=== PATIENT | male | born 1945 | race Caucasian/White ===

== ENCOUNTER → 2023-04-01 07:37 | Outpatient (REF) | payer MEDICARE, SELFPAY | LOC: DHVS 07:37 | PROVIDERS: ATTENDING PHYSICIAN Surgery Vascular Surgery | DX: I71.40 Abdominal aortic aneurysm, without rupture, unspecified (principal) | CPT/HCPCS: 76770 ==

== ENCOUNTER → 2023-04-05 08:02 | Outpatient (REF) | payer MEDICARE, SELFPAY ==
[2023-04-05 09:46] LABS: Blood Urea Nitrogen 12 mg/dl (9-20); Calcium 9.6 mg/dl (8.4-10.2); Carbon Dioxide 29 mmol/L (22-30); Chloride 103 mmol/L (98-107); Glucose 101 mg/dl (70-99); Sodium 138 mmol/L (135-145); eGFR > 60.00
== END ==
LOC: REG 08:02
PROVIDERS: ATTENDING PHYSICIAN Surgery Vascular Surgery; FAMILY PHYSICIAN Family Medicine
DX: I71.40 Abdominal aortic aneurysm, without rupture, unspecified (principal)
CPT/HCPCS: 36415; 80048

== ENCOUNTER → 2023-04-07 08:52 | Outpatient (REF) | payer MEDICARE, SELFPAY | LOC: HWRAD 08:52 | PROVIDERS: ATTENDING PHYSICIAN Surgery Vascular Surgery; FAMILY PHYSICIAN Family Medicine | DX: I71.40 Abdominal aortic aneurysm, without rupture, unspecified (principal) | CPT/HCPCS: 74174; Q9967 ==

== ENCOUNTER → 2023-04-13 13:22 | Outpatient (REF) | payer MEDICARE, SELFPAY | LOC: HWRAD 13:22 | PROVIDERS: ATTENDING PHYSICIAN Internal Medicine Critical Care Medicine; FAMILY PHYSICIAN Family Medicine | DX: R93.89 Abnormal findings on diagnostic imaging of other specified body structures (principal); R06.02 Shortness of breath | CPT/HCPCS: 71250 ==

== ENCOUNTER → 2023-04-14 06:54 | Outpatient (REF) | payer MEDICARE, SELFPAY ==
[2023-04-14 07:33] LABS: % Basophils 0.9 % (0-2); % Eosinophils 5.3 % (0-6); % Immature Granulocytes 0.4 % (0-0.5); % Lymphocytes 33.6 % (20.5-51.1); % Monocytes 7.1 % (1.7-9.3); % Neutrophils 52.7 % (42.2-75.2); Absolute Basophils 0.1 10^3/uL (0-0.2); Absolute Eosinophils 0.6 10^3/uL (0-0.7); Absolute Lymphocytes 3.6 10^3/uL (1.2-3.4); Absolute Monocytes 0.8 10^3/uL (0.1-0.6); Absolute Neutrophils 5.7 10^3/uL (1.4-6.5); Hemoglobin 16.6 g/dL (13.0-18.0); Mean Corp Hgb Conc. 34.6 g/dL (33.0-37.0); Mean Corpuscular Volume 86.8 fL (80.0-94.0); Nucleated Red Blood Cells % 0 % (-); Platelet Count 287 10^3/uL (130-400); Red Blood Cell Count 5.53 10^6/uL (4.70-6.10); Red Cell Dist. Width 13.5 % (11.5-14.5); White Blood Cell Count 10.7 10^3/uL (4.8-10.8)
[2023-04-14 07:59] LABS: ALT (SGPT) 32 U/L (0-50); AST (SGOT) 38 U/L (17-59); Alkaline Phosphatase 84 U/L (38-126); Blood Urea Nitrogen 14 mg/dl (9-20); Calcium 9.8 mg/dl (8.4-10.2); Carbon Dioxide 29 mmol/L (22-30); Chloride 102 mmol/L (98-107); Glucose 91 mg/dl (70-99); HDL Cholesterol 49 mg/dl; LDL Cholesterol, Calculated 103 mg/dl; Potassium 4.2 mmol/L (3.5-5.1); Sodium 141 mmol/L (135-145); Total Bilirubin 1.3 mg/dl (0.2-1.3); Total Cholesterol 195 mg/dl (50-199); Total Protein 6.6 g/dl (6.3-8.2); Triglyceride 218 mg/dl (10-149); Very Low Density Lipoprotein 43 mg/dl (0-30); eGFR > 60.00
[2023-04-14 08:26] LABS: TSH Reflex To Free T4 5.73 uIU/ml (0.47-4.68)
[2023-04-14 11:35] LABS: Free T4 0.86 ng/dl (0.78-2.19)
== END ==
LOC: REG 06:54
PROVIDERS: ATTENDING PHYSICIAN Family Medicine
DX: I71.40 Abdominal aortic aneurysm, without rupture, unspecified (principal); Z13.220 Encounter for screening for lipoid disorders; Z13.228 Encounter for screening for other metabolic disorders; Z13.29 Encounter for screening for other suspected endocrine disorder; Z13.0 Encounter for screening for diseases of the blood and blood-forming organs and certain disorders involving the immune mechanism; E78.00 Pure hypercholesterolemia, unspecified
CPT/HCPCS: 36415; 80053; 80061; 84439; 84443; 85025

== ENCOUNTER → 2023-04-18 13:47 | Outpatient (REF) | payer MEDICARE, SELFPAY | LOC: DHCBS HW 13:47 | PROVIDERS: ATTENDING PHYSICIAN Internal Medicine Interventional Cardiology; FAMILY PHYSICIAN Family Medicine | DX: R06.02 Shortness of breath (principal); I71.40 Abdominal aortic aneurysm, without rupture, unspecified | CPT/HCPCS: 93306 ==

== ENCOUNTER → 2023-04-21 10:43 | Outpatient (REF) | payer MEDICARE, SELFPAY | LOC: DHCBC/DCA 10:43 | PROVIDERS: ATTENDING PHYSICIAN Internal Medicine Interventional Cardiology; FAMILY PHYSICIAN Family Medicine | DX: R06.02 Shortness of breath (principal); I71.40 Abdominal aortic aneurysm, without rupture, unspecified | CPT/HCPCS: 78452; 93017; A9500; J2785 ==

== ENCOUNTER 2023-06-16 06:33 | Inpatient (IN) | payer MEDICARE, SELFPAY ==
[2023-06-13 09:04] VITALS: BMI 27.5
[2023-06-13 09:29] LABS: % Basophils 1.1 % (0-2); % Eosinophils 3.2 % (0-6); % Immature Granulocytes 1.1 % (0-0.5); % Lymphocytes 29.2 % (20.5-51.1); % Monocytes 7.7 % (1.7-9.3); % Neutrophils 57.7 % (42.2-75.2); Absolute Basophils 0.1 10^3/uL (0-0.2); Absolute Eosinophils 0.3 10^3/uL (0-0.7); Absolute Immature Granulocytes 0.1 10^3/uL (0-0.05); Absolute Lymphocytes 2.6 10^3/uL (1.2-3.4); Absolute Monocytes 0.7 10^3/uL (0.1-0.6); Absolute Neutrophils 5.2 10^3/uL (1.4-6.5); Hematocrit 43.4 % (39.0-52.0); Hemoglobin 14.9 g/dL (13.0-18.0); Mean Corp Hgb Conc. 34.3 g/dL (33.0-37.0); Mean Corpuscular Hgb 30.8 pg (27.0-31.0); Mean Corpuscular Volume 89.7 fL (80.0-94.0); Mean Platelet Volume 10.4 fL (7.4-10.4); Nucleated Red Blood Cells % 0 % (-); Platelet Count 199 10^3/uL (130-400); Red Blood Cell Count 4.84 10^6/uL (4.70-6.10); Red Cell Dist. Width 14.1 % (11.5-14.5)
[2023-06-13 09:38] LABS: INR 0.99; PT 12.9 Sec (11.4-14.6)
[2023-06-13 09:39] LABS: APTT 25.8 Sec (23.4-35.0)
[2023-06-13 10:02] LABS: Blood Urea Nitrogen 14 mg/dl (9-20); Calcium 9.7 mg/dl (8.4-10.2); Carbon Dioxide 28 mmol/L (22-30); Chloride 107 mmol/L (98-107); Estimated Creatinine Clearance 83 ml/min; Glucose 113 mg/dl (70-99); Sodium 140 mmol/L (135-145); eGFR > 60.00
[2023-06-13 10:18] LABS: Potassium 3.8 mmol/L (3.5-5.1)
[2023-06-16] VITALS (16 sets, daily range): BP systolic 131–148; BP diastolic 58–72; BMI 27.5
--- NOTE | 2023-06-16 07:01 | W.SUR.PREOP ---
Pre-Operative Surgical Note
-
I have examined this patient prior to the performance of the scheduled procedure.
The patient's condition is unchanged from the time of the current History and
Physical and the patient is able to undergo the scheduled procedure.
[2023-06-16] MEDS: BACTROBAN NASAL 1 GRAM NASAL (07:06)
[2023-06-16] MEDS: PERIDEX 0.12% ORAL RINSE 15 ML PO (07:07)
[2023-06-16] MEDS: NSS 500 IV (07:07)
[2023-06-16] MEDS: VENTOLIN NEBULES 2.5 MG INH (07:19)
[2023-06-16 10:14] LABS: ACT-LR - POC 227 Seconds (116-155)
[2023-06-16 11:07] LABS: ACT-LR - POC 240 Seconds (116-155)
--- NOTE | 2023-06-16 11:37 | W.SUR.POST ---
Surgical Immediate Post Op
Note
Pre Op Diagnosis: AAA
Post Op Diagnosis: AAA
Procedure Performed: FEVAR + Right femoral endarterectomy with bovine patch angioplasty
Primary Surgeon: Omar Hale MD
Primary Special Educator: KARLOS Rosenberg
Anesthesia:GETA
Estimated Blood Loss: 150ml
Fluids: See anesthesia flowsheet
Drains/Shunts: N/A
Specimens/Cultures: Right common femoral plaque
Doppler/Duplex/Angio (Y/N): Y
Complications: None
Operative Findings: Post operatively +2 palpable DP pulse
[2023-06-16 12:25] LABS: Hematocrit 37.7 % (39.0-52.0); Mean Corp Hgb Conc. 34.5 g/dL (33.0-37.0); Mean Platelet Volume 10.3 fL (7.4-10.4); Platelet Count 158 10^3/uL (130-400); Red Blood Cell Count 4.19 10^6/uL (4.70-6.10); Red Cell Dist. Width 14.1 % (11.5-14.5); White Blood Cell Count 8.4 10^3/uL (4.8-10.8)
[2023-06-16] MEDS: DILAUDID 0.25 MG IV (12:27)
[2023-06-16 12:35] LABS: INR 1.06; PT 13.9 Sec (11.4-14.6)
[2023-06-16 12:36] LABS: APTT 29.3 Sec (23.4-35.0)
[2023-06-16 12:45] LABS: Blood Urea Nitrogen 14 mg/dl (9-20); Calcium 8.3 mg/dl (8.4-10.2); Carbon Dioxide 24 mmol/L (22-30); Chloride 115 mmol/L (98-107); Estimated Creatinine Clearance 94 ml/min; Glucose 122 mg/dl (70-99); Potassium 4.2 mmol/L (3.5-5.1); Sodium 140 mmol/L (135-145); eGFR > 60.00
[2023-06-16] MEDS: NSS 1000 IV ×2 (12:45→20:55)
[2023-06-16 13:33] LABS: Magnesium 1.8 mg/dl (1.6-2.3)
--- NOTE | 2023-06-16 14:18 | CON.INTV ---
Consultation
Consultation Request
Date/Time Consultation Requested: 06/16/2023 - 1307
Date/Time Consultation Performed: 06/16/2023 - 1402
Requesting Provider: KARLOS Cervantes
Performing Provider: Dr. Pope
Reason for Consultation: S/p EVAR + femoral endarterectomy
Medical History
-
Chief Complaint: Elective FEVAR
History of Present Illness:
78-year-old male former tobacco smoker (quit in 1994) with a past medical history of COPD, ED, hypercholesterolemia, GERD, colonic polyps, hiatal hernia, personal history of COVID-19, and AAA without rupture who presents with elective surgical
repair of his known AAA. Patient known to vascular surgery with last appointment on 05/06/[address] Hale. Patient had a duplex ultrasound from March 2023 showing progression of his aortic aneurysm that currently measures 5.9 x [address]
scan his aneurysm sac measures 5.5 cm surgical repair with a fenestrated endovascular stent graft was discussed as well as possible right femoral endarterectomy. Patient agreed to procedure and today he underwent open surgical exposure of his right
femoral artery with endovascular pair using fenestrated endovascular stent graft, as well as extensive right iliofemoral endarterectomy and bilateral renal artery stent insertion. Patient tolerated procedure without any immediate complications. He
was transferred to ICU postoperatively and critical care services now consulted for additional management/recommendations.
When I saw the patient he was in bed, on room air with SpO2 97%. He is breathing comfortably. Tovar catheter in place. He denies shortness of breath, chest pain, abdominal pain, fevers or chills.
Of note, patient follows with me in [facility] office. Last office visit on 04/11/2023. At that time patient had shortness of breath likely related to multiple bouts of COVID-19. He obtain PFTs in April 2023 which showed moderate COPD. Stiolto Respimat
was started at that time. He also has a RUL spiculated nodule which is stable compared to November 2020.
PMHx: Moderate COPD, anxiety, history of Paget's disease, ED, hypercholesterolemia, GERD, rotator cuff tear, colonic polyps, diverticulosis, hiatal hernia, lumbar spinal stenosis, AAA, history of skin cancer, personal history of COVID-19, postnasal
drip, former tobacco use disorder
PSHx: Cervical spinal surgery (August 2017), laparoscopic appendectomy with partial cecectomy, right�TKA, L3-L5 fusion, bilateral hip replacement, bilateral shoulder arthroscopy
Past Medical History
Past Medical History: Other (Above as per HPI)
Past Surgical History: Other (Above as per HPI)
Social History
Tobacco: Former Smoker (Quit in 1994)
Alcohol: None
Drug: None
Family History
Family History: CAD (Mother) and Cancer (Father: Bone cancer)
Allergies / Home Medications
Allergies
Allergy/AdvReac Type Severity Reaction Status Date / Time
sulfamethoxazole Allergy racing Verified 06/06/23 12:08
[From Bactrim] heart rate
trimethoprim [From Bactrim] Allergy racing Verified 06/06/23 12:08
heart rate
Home Medications
�Medication �Instructions �Recorded �Confirmed �Last Taken �Type
atorvastatin 20 mg tablet 20 mg PO HS 04/04/10 06/16/23 06/15/23 20:00 History
alprazolam 0.5 mg tablet 0.5 mg PO PRN PRN anxiety 09/13/17 06/16/23 04/17/19 21:00 History
celecoxib 200 mg capsule 200 mg PO Q12H ##0 04/19/19 06/16/23 06/12/23 20:00 Rx
albuterol sulfate 90 mcg/actuation 1 inh inhalation Q4HPRN PRN SOB 06/06/23 06/16/23 06/16/23 06:00 History
aerosol inhaler
atenolol 25 mg tablet 25 mg PO DAILY 06/06/23 06/16/23 06/15/23 19:00 History
omeprazole 20 mg tablet,delayed 20 mg PO DAILY 06/06/23 06/16/23 06/15/23 20:00 History
release
tiotropium 2.5 mcg-olodaterol 2.5 2 puff inhalation DAILY 06/06/23 06/06/23 Unknown History
mcg/actuation mist for inhalation
(Stiolto Respimat)
zolpidem 5 mg tablet 5 mg PO HS PRN Insomnia 06/06/23 06/16/23 Unknown History
Review of Systems
-
History Source: Patient
All other systems: Negative unless noted
Vitals / Labs / Diagnostic Testing
Vital Signs
Temp Pulse Resp BP Pulse Ox
97.8 F 56 13 148/60 99
06/16/23 15:24 06/16/23 15:15 06/16/23 15:15 06/16/23 15:01 06/16/23 15:15
Lab Data
06/16/23 12:15
06/16/23 12:15
Laboratory Results
06/16/23
12:15
PT 13.9
INR 1.06
APTT 29.3
Microbiology
06/13/23 09:17 Nose MRSA Screen - Final
No Methicillin Resistant Staphylococcus aureus isolated.
Diagnostic Testing:
Physical Exam
-
HEENT: Normocephalic, Anicteric and Moist Mucous Membranes
Cardiovascular: S1/S2 and Peripheral Edema (negative)
Respiratory: Wheeze (negative), Rales (negative), Rhonchi (negative) and Non-Labored Respirations
GI: Soft, Non Distended and Non Tender
Neurology: Awake and Alert
Skin: Warm and Dry
General: Comfortable and Chills (negative)
Assessment
-
Assessment: 78-year-old male former tobacco smoker (quit in 1994) with a past medical history of COPD, ED, hypercholesterolemia, GERD, colonic polyps, hiatal hernia, personal history of COVID-19, and AAA without rupture who presents with elective
surgical repair of his known AAA. Patient known to vascular surgery with last appointment on 05/06/[address]. Patient had a duplex ultrasound from March 2023 showing progression of his aortic aneurysm that currently measures 5.9 x 5.[address] scan his aneurysm sac measures 5.5 cm surgical repair with a fenestrated endovascular stent graft was discussed as well as possible right femoral endarterectomy. Patient agreed to procedure and today he underwent open surgical exposure
of his right femoral artery with endovascular pair using fenestrated endovascular stent graft, as well as extensive right iliofemoral endarterectomy and bilateral renal artery stent insertion. Patient tolerated procedure without any immediate
complications. He was transferred to ICU postoperatively and critical care services now consulted for additional management/recommendations.
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
COVID-19, postnasal drip, former tobacco use disorder
Impression:
#Abdominal aortic aneurysm s/p fenestrated endovascular stent graft repair + right iliofemoral endarterectomy with bovine patch angioplasty (POD #0)
#Acute respiratory failure with hypoxia on supplemental oxygen
#Former tobacco smoker (quit 1994)
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
#GERD
#Hiatal hernia
#Personal Hx of COVID-19
Plan:
Postoperative surgical intensive care unit monitoring
Continue supplemental oxygen to maintain SpO2 >88%
Incentive spirometry
Aspiration precautions
MAP>65
Takes Stiolto --> will start Striverdi and Spiriva while inpatient, andn oncen back home he should resume Stiolto
Neuro and vascular checks per protocol
Vascular surgery following-correspondence and operative notes reviewed
Replete electrolytes with K>4, Mg>2
Maintain euglycemia with goal BG 140-180
DVT prophylaxis
Early nutrition
Early mobilization
Critical care statement: A total of 44 minutes of critical care time was provided for this patient today. This includes management of unstable vital signs, evaluation of the patient at bedside, reviewing the patient's pertinent medical records
including radiographs, microbiology, laboratory evaluations, and discussion with primary team, consultants, pharmacy, nutrition, physical therapy, case management, charge nurse, critical care nursing, and respiratory therapy.
Data:
CXR 06-16-2023:
Mild to moderate cardiomegaly, accentuated by nonstandard projection and supine positioning.
No evidence to suggest vascular congestion or congestive heart failure. No focal interstitial or airspace opacity to indicate pneumonia. The lungs are clear.
No radiographically demonstrable pneumothorax, limited by supine positioning.
--- NOTE | 2023-06-16 15:33 | PTCARENOTE ---
Updated assessment, vital signs, neurovascular checks, input, output trends ongoing and as documented. Updated admission assessment, data based and orientation to ICU completed. Follow up plan of cares, teaching and supportive cares ongoing. Follow
up labs, chest xray, and ecg completed as per unit orders. Update with with and son at bedside. Hourly rounds and vascular checks as per orders. Follow medications with pharmacy and as per Emar.
--- NOTE | 2023-06-16 15:40 | OR.RPT ---
Addendum entered and electronically signed by Omar Hale MD 06/16/23 15:42:
FLUORO DATA:
Fluoro time: 32.3 min
mGy: 1693
DAP 384.73.
Original Note:
Operative Report
Operative Report
PROCEDURE DATE: 06/16/2023
Preoperative diagnosis: Juxtarenal abdominal aortic aneurysm
Postoperative diagnosis: Same
Procedure:
1. Open surgical exposure of right femoral artery via right groin incision.
2. Endovascular repair of abdominal aortic aneurysm with Cook ZFEN fenestrated endovascular stent graft with bilateral renal artery small fenestrations and SMA large fenestration.
3. Bilateral renal artery stents with Atrium iCAST 6mm x 22mm covered stent left renal artery, Atrium iCAST 6m x 22mm covered stents x 2 (overlapping) right renal artery.
4. Distal aortic extension with Cook TX 2 tube thoracic stent graft.
5. Extensive right iliofemoral endarterectomy (distal external iliac artery, common femoral, SFA proximally, origin of profunda) with bovine pericardial patch angioplasty.
6. Percutaneous left common femoral artery closure.
7. Supervision and interpretation.
Surgeon: Geoffrey
Salesperson Parts: Sofy
Complications: None
Anesthesia: General
Indications for procedure:
Patient with abdominal aortic aneurysm meeting size criteria, and it also demonstrated enlargement. The infrarenal neck was reverse taper and too short for standard endovascular stent graft. Therefore we discussed fenestrated endovascular aneurysm
repair. In addition, the distal infrarenal aorta was more normal in caliber. Therefore we felt that extension distally with a straight tube graft (thoracic TX2 graft) as opposed to having to extend bifurcated modular graft to the iliacs was very
reasonable. Finally, I discussed potentially concomitant right femoral endarterectomy due to heavy plaque, and the likely need for right femoral cutdown. Risk/benefits/alternatives of the procedure were discussed in full detail. Patient
understood all wish to proceed.
Description of procedure:
Patient was identified brought to the operating room placed on the table in supine position. After the adequate administration of anesthesia and perioperative antibiotics he was prepped and draped in the standard surgical fashion. A standard
preoperative timeout was undertaken and everybody was in agreement the plan. A standard longitudinal incision was made in the right groin that was carried through skin subcutaneous tissue. I dissected down to the level of the inguinal ligament.
Any crossing lymphatic tissue was ligated between silk ties and then divided. Next identified the common femoral artery as it emerged from underneath the inguinal ligament. It was noted to be somewhat soft on the anterior surface proximally, but
moderate plaque noted in its midsection. I dissected to the bifurcation of the femoral vessels and dissected out the superficial femoral and profunda femoris proximally. Careful circumferential dissection was performed and the vessels were soft
about a centimeter or 2 cm beyond their origins and Vesseloops passed around them. Next I dissected underneath the inguinal ligament proximally, and identified the lateral circumflex iliac branch which was also carefully dissected and
circumferentially looped. In between the lateral and medial branches, the distal external iliac artery was soft here. Therefore carefully circumferentially dissected here and passed a vessel loop around it.
At this point, left femoral artery access was obtained under direct duplex ultrasound guidance. A 6 Egyptian sheath was placed over 0.035 inch wire. Next, a small 1 cm incisions was made around the sheath entry site. Blunt dissection was undertaken
with hemostats to facilitate percutaneous suture delivery. Next, using the ProGlide suture system, percutaneous sutures were deployed at the 10:00 and 2 o'clock position in the standard fashion. Suture strands were tagged outside the skin. Next,
I exchanged for 11 Egyptian sheath in the left groin. Next, I gained access to the right proximal common femoral artery where it was soft anteriorly using a micropuncture kit under direct visualization (post cutdown). Next I advanced a 6 Egyptian
sheath over a 0.035 inch wire and immediately remove that and exchanged for an 11 Egyptian sheath.
Next using a KMP catheter, I guided wires into the supraceliac aorta from bilateral access sites. I had some difficulty on the left side gaining wire access past the common iliac artery. I had noted this earlier as well. However I was able to
gain purchase with a flap angled wire and then advanced the catheter through. I now exchanged for an Amplatz wire. I exchanged the 11 Egyptian sheath on that side for a 14 Egyptian dilator. This passed through without difficulty, and therefore I then
advanced an 18 Egyptian Emigrant dry seal sheath into the aorta under direct fluoroscopy. This was to be the contralateral side.
I then brought the main body device into place. It was oriented under fluoroscopy in the field before loading it over the wire and inserting it through the right-sided sheath. I confirmed anterior positioning of the vertical marker on the proximal
ZFEN piece. I also confirmed positioning of the renal arteries. I was satisfied with the way it was oriented. I then exchanged out my 11 Egyptian sheath for the delivery device for the proximal ZFEN which was a [id number]. This was
advanced into the visceral aorta segment. On the left side I exchanged for a pigtail catheter. I now performed power injection aortography. This was done under magnification. The bilateral renal arteries were marked on the screen. Next I
lowered my endograft into position. I then began on sheath in it, fully on she think the first 2 stents. I was happy with the initial alignment of the bilateral renal arteries. I therefore then unsheathed it to completion. Next, I withdrew my
Emigrant dry seal sheath (from the left sided access) into the more distal infrarenal aorta. Then using a flopping on hydrophilic wire and a glide catheter I was able to cannulate the proximal Z fashion piece. I then exchanged for an Amplatz wire and
then replaced the introducer for the Emigrant dry seal sheath and advanced the sheath into the proximal ZFEN endoprosthesis. Once I did this, I now exchanged my wire out for a floppy angled hydrophilic wire and a Vanche 4 catheter. I attempted to
cannulate the right renal artery initially. I was able to get my wire out initially but it followed an aberrant course. I advanced my catheter slightly but I could not get it completely out of the fenestration. I shot an angiogram that
demonstrated it was in an accessory renal artery. Therefore I tried once or twice more but I had difficulty cannulating my wire out into the right renal artery. But based on the accessory renal artery this told me that the main endoprosthesis was
too high. I therefore then lowered it again maintaining anterior/posterior orientation precisely. Once I did this, I was relatively easily able to cannulate the right renal artery out of the right renal fenestration. I gained good distal wire
purchase and then advance my glide catheter out. I then exchanged for a Rodriguez wire and passed a 6 Egyptian Ansell sheath out into the right renal artery. Once I did this I then we punctured the Emigrant dry seal sheath and advanced a glide wire through
the second puncture and then using again a Vanche 4 catheter I was able to access the left renal artery through the fenestration. I then exchanged again for a glide catheter and again as with the other side performed angiography to confirm that I
was in the true lumen of the renal artery. Now I exchanged again for a Rodriguez wire as with the other side, and then advanced and Ansell 6 Egyptian sheath into the renal artery.
At this point, I advanced a 6 mm x 22 mm Atrium iCAST covered stents into both Ansell sheaths. Once these were all positioned, I then completed the deployment of the proximal Z FEN endoprosthesis. The diameter reducing tie was released, and the
proximal constraint was released, and the top bare-metal stents were released. Next, the distal constraints were released and the top cap was recaptured. The delivery device was walked out over the wire. Next I used a Coda balloon to balloon mold
the proximal seal zone as well as the seal zone in the visceral segment. Next I withdrew my right sided Ansell sheath slightly and balloon to my Atrium iCAST into place (confirming good positioning with two thirds out into the renal artery, one
third in the aorta). I then used a 10 mm angioplasty balloon flare the intra-aortic portion of the stent. Angiogram was performed through my sheath this point demonstrated good positioning of the stent but there appeared to be a filling defect. I
therefore then extended with an additional Atrium iCAST stent overlapping another 6 mm x 22 mm being sure to land short of the renal bifurcation. At this point completion angiogram demonstrated good positioning of the 2 stents. Next, I similarly
deployed my left Atrium iCAST stent and then similarly ballooned with a 10 mm balloon to flare the intra-aortic portion.
Once I completed all this, I exchanged my right-sided sheath over the [employer] wire for the distal extension in the aorta which was to be done with a TX2 thoracic endograft ([id number]). Once I advanced this under fluoroscopy with
sufficient overlap in the proximal Z fashion endoprosthesis and essentially at or just short of the aortic bifurcation (had been marked on the screen angiographically), I then withdrew all my renal artery wires/stents/sheaths. Now I unsheathed to
the distal endoprosthesis. I was very satisfied with its positioning. I then balloon molded the overlap zone of this with a Coda balloon. Next I exchanged the pigtail catheter out my left side and performed completion angiography. Completion
angiogram demonstrated excellent result with well-positioned stent. Bilateral renal arteries and SMA filled very well. Bilateral iliac arteries filled very well. No evidence of any endoleak was noted. At this point I was very satisfied. I
exchanged my pigtail catheter out over an Amplatz wire.
Now I turned my attention to the left groin and removed the sheath while cinching down my percutaneous sutures sequentially one by one. It appeared to be hemostatic and therefore the wire was removed and the sutures were further cinched down and
the knots pushed down with a knot pusher. Hemostasis was noted. Therefore the knots were locked. Suture strands were then trimmed.
Now I turned my attention to the right groin. I exchanged out my Vesseloops on the SFA and profunda for profunda clamps. All of the branch Vesseloops were double looped and tightened. I positioned a Derra clamp on the distal external iliac
artery. I then withdrew my sheath into the common femoral artery. The wire was then removed. Finally the sheath was withdrawn as the Derra clamp was clamped down. The sheath entry site/arteriotomy was then extended in a longitudinal fashion
proximally and distally. Bulky coral reef like plaque was noted throughout. A [place] was used to create an endarterectomy plane extensive endarterectomy was undertaken from the external iliac artery extending into the common femoral over the origin
of the profunda, and onto the proximal SFA. About 2 cm beyond the origin of the SFA, I was able to further out the plaque to a nice clean endpoint. The intima is noted to be well adherent here. Plaque was everted out of the origin of the profunda
femoris artery. I then grasped the plaque and endarterectomized it back to the proximal Derra clamp. I then tease the plaque out while quickly releasing the clamp and then reclamped and the artery slightly more proximally. The plaque it come out
nicely en bloc. The endpoint proximally was inspected and noted to be well adherent though there was some small intimal debris that was carefully removed with fine forceps. I removed any other fine debris throughout the endarterectomy bed with
fine forceps. The origin of the profunda had still a little bit of intimal thickening on the posterior wall. I gently grasped this and everted this out slightly further until it feathered out. I was satisfied with the endpoint there but just to
be sure I tacked it with two 7-0 Prolene tacking sutures. I irrigated heparinized saline throughout the endarterectomy bed. I then used a bovine pericardial patch to sew a long patch angioplasty with a running 6-0 Prolene suture. Prior to
completing and tying down my suture line I backbled each branch sequentially and then reclamped it. I then instilled heparinized saline and completed and tied to my suture line. Next I released flow in the profunda femoris artery, and then finally
released flow in the common femoral and superficial femoral arteries. There is now excellent pulsatile flow in all 3 vessels. Doppler confirmed excellent Doppler signals. A couple small bleeders along the suture line were repaired primarily with
6-0 Prolene [id number] type suture. Hemostasis was fully achieved then. I gave protamine to reverse the heparin. I then confirmed hemostasis. I irrigated copiously. We then closed in layers using 2-0 Vicryl followed by 3-0 Vicryl followed
by 4-0 Monocryl subcuticular stitch. Dermabond was applied. The left sided small percutaneous suture delivery incision site was closed with 4-0 Monocryl and Dermabond applied there as well. The patient tolerated the procedure well. Upon
completion he had an excellent palpable dorsalis pedis pulse in both feet.
--- NOTE | 2023-06-16 18:23 | PTCARENOTE ---
Update with Dr Hale at bedside. Follow up assessment, i/o, vascular checks and overall plan of cares. Patient verbalizes satisfaction and overall gratefulness for surgery. Continue follow up teaching, plan of cares and vascular checks. Heel Builder Machine at
bedside. Weaned o2 down to off saturation 98% on room air. Will update incentive spirometer teaching and respiratory cares follow up. Hourly rounds ongoing.
[2023-06-16] MEDS: DILAUDID 0.5 MG IV ×4 (18:53→23:36)
[2023-06-16] MEDS: HEPARIN 5000 UNITS SC (20:38)
[2023-06-16] MEDS: LIPITOR 20 MG PO (20:39)
--- NOTE | 2023-06-16 20:40 | PTCARENOTE ---
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 L radial AL WNL. R groin with aquacel drsg CDI, L groin with skin glue intact, NV checks intact. Tovar cath draining adequate amt yellow urine. prn dilaudid
for R groin pain. POC discussed, call ravi w/pt.
[2023-06-16] MEDS: ROXICODONE 5 MG PO (21:40)
--- NOTE | 2023-06-16 23:35 | PTCARENOTE ---
pt c/o R groin pain 08/30 despite prn dilaudid and dose of prn oxycodone, BDoughertyNP aware- additional 1 x dose 0.5 mg dilaudid ordered. no further changes in assessment.
[2023-06-17] MEDS: DILAUDID 0.5 MG IV ×3 (04:38→11:54)
[2023-06-17 04:39] LABS: Hematocrit 34.2 % (39.0-52.0); Mean Corp Hgb Conc. 35.1 g/dL (33.0-37.0); Mean Corpuscular Hgb 31.2 pg (27.0-31.0); Mean Corpuscular Volume 88.8 fL (80.0-94.0); Mean Platelet Volume 10.6 fL (7.4-10.4); Platelet Count 183 10^3/uL (130-400); Red Blood Cell Count 3.85 10^6/uL (4.70-6.10); Red Cell Dist. Width 14.4 % (11.5-14.5); White Blood Cell Count 16.4 10^3/uL (4.8-10.8)
[2023-06-17 04:44] VITALS: BMI 28.6
[2023-06-17 04:50] LABS: INR 1.05; PT 13.7 Sec (11.4-14.6)
[2023-06-17 04:51] LABS: APTT 26.6 Sec (23.4-35.0)
[2023-06-17 05:27] LABS: Blood Urea Nitrogen 16 mg/dl (9-20); Carbon Dioxide 23 mmol/L (22-30); Chloride 111 mmol/L (98-107); Estimated Creatinine Clearance 83 ml/min; Glucose 109 mg/dl (70-99); Potassium 4.2 mmol/L (3.5-5.1); Sodium 137 mmol/L (135-145); eGFR > 60.00
--- NOTE | 2023-06-17 07:20 | W.PN.VS ---
Addendum entered and electronically signed by Omar Hale MD 06/17/23 09:01:
Seen and examined with FUR CLEANER. Agree with findings as noted below. Patient doing well overall. He is without significant complaints morning. Little bit of right groin pain overnight (incisional). No abdominal pain or back pain. On exam/awake and
alert. Abdomen soft, nondistended, nontender. Right groin flat, dressing clean dry and intact. No hematoma. Left groin small incision clean dry and intact. No hematoma. Feet are warm and well-perfused with easily palpable 2+ DP pulses
bilaterally. Labs reviewed. Plan/as discussed and noted below.
Original Note:
Today's Communication / Plan
-
Patient seen and examined at bedside with Dr. Omar Hale, below plan reviewed with attending
Assessment/Plan
-
Assessment: 78 year old male POD #1 EVAR with right femoral endarterectomy
Plan:
Discontinue arterial line
Discontinue IV fluids
Discontinue madison catheter
OOB to chair with progression to ambulation
Can downgrade to tele
Subjective Data
-
Date of Service: June 17, 2023
Patient seen and examined at bedside, offers no complaints. Denies nausea, vomiting, fever, and chills. Reports tolerating PO diet.
Objective Data
-
Vital Signs
Temp Pulse Resp BP Pulse Ox
99.8 F 62 17 132/68 94
06/17/23 04:50 06/17/23 06:30 06/17/23 06:30 06/16/23 20:00 06/17/23 06:30
Intake and Output
06/16/23 06/17/23 06/18/23
06:59 06:59 06:59
Intake Total 2680 / 2680
Output Total 1065 / 1065
Balance 1615 / 1615
Intake:
Oral fluids 1140 / 1140
IV fluids (Total) 1540 / 1540
NSS 100 / 100
Nss 1,000 ml @ 80 mls/hr IV . 1440 / 1440
[id number] [id number] Rx#:[id number]
Output:
Urine, Madison 1065 / 1065
Lab Results
06/17/23 04:29
06/17/23 04:29
Calcium 8.0 mg/dl (8.4-10.2) L 06/17/23 04:29
Magnesium 1.8 mg/dl (1.6-2.3) 06/16/23 12:15
Physical Exam
-
AAOx3, NAD
No tachycardia
No dyspnea on room air
ABD soft, non-tender, mildly distended
Madison draining clear yellow urine
Right groin dressing CDI and left groin dermabond CDI, BL groin without hematoma and surrounding compartments soft
BL DP pulses +2
[2023-06-17] MEDS: TENORMIN 25 MG PO (07:58)
[2023-06-17] MEDS: PROTONIX 40 MG PO (07:58)
--- NOTE | 2023-06-17 07:58 | W.PN.INTV ---
Today's Communication / Plan
Recommendations
Striverdi and spiriva, then stiolto once DC'd back home
Pain control
Vascular checks as per surgery
PT/OT
Patient being downgraded to telemetry/2S. Satellite Tv Technician Installer/pulmonary service will now sign off. Please reconsult if there are any additional questions/concerns, or if patient's respiratory status deteriorates.
Assessment
-
Assessment: 78-year-old male former tobacco smoker (quit in 1994) with a past medical history of COPD, ED, hypercholesterolemia, GERD, colonic polyps, hiatal hernia, personal history of COVID-19, and AAA without rupture who presents with elective
surgical repair of his known AAA. Patient known to vascular surgery with last appointment on 05/06/[address]. Patient had a duplex ultrasound from March 2023 showing progression of his aortic aneurysm that currently measures 5.9 x 5.[address] scan his aneurysm sac measures 5.5 cm surgical repair with a fenestrated endovascular stent graft was discussed as well as possible right femoral endarterectomy. Patient agreed to procedure and today he underwent open surgical exposure
of his right femoral artery with endovascular pair using fenestrated endovascular stent graft, as well as extensive right iliofemoral endarterectomy and bilateral renal artery stent insertion. Patient tolerated procedure without any immediate
complications. He was transferred to ICU postoperatively and critical care services now consulted for additional management/recommendations.
Chronic conditions SISAL PICKER: Moderate COPD, anxiety, history of Paget's disease, ED, hypercholesterolemia, GERD, rotator cuff tear, colonic polyps, diverticulosis, hiatal hernia, lumbar spinal stenosis, AAA, history of skin cancer, personal history of
COVID-19, postnasal drip, former tobacco use disorder
Impression:
#Abdominal aortic aneurysm s/p fenestrated endovascular stent graft repair + right iliofemoral endarterectomy with bovine patch angioplasty (POD #1)
#Acute respiratory failure with hypoxia on room air
#Former tobacco smoker (quit 1994)
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
#GERD
#Hiatal hernia
#Personal Hx of COVID-19
Plan:
Postoperative surgical intensive care unit monitoring
Continue supplemental oxygen to maintain SpO2 >88%
Incentive spirometry encouraged
Aspiration precautions
MAP>65
Takes Stiolto --> continue Striverdi and Spiriva while inpatient, and once back home he should resume Stiolto
Neuro and vascular checks per protocol
Vascular surgery following-correspondence and operative notes reviewed
Replete electrolytes with K>4, Mg>2
Maintain euglycemia with goal BG 140-180
Pain control
DVT prophylaxis
Early nutrition
Early mobilization
Dispo: Patient being downgraded to telemetry/2S. Satellite Tv Technician Installer/pulmonary service will now sign off. Thank you for allowing us to be involved in the care of this patient. Please reconsult if there are any additional questions/concerns, or if
patient's respiratory status deteriorates.
Total time spent today was 55 minutes for this encounter. Time includes reviewing laboratory test/imaging results, reviewing pertinent medical records, obtaining and reviewing medical history, performing an appropriate exam, ordering medications,
tests and procedures. Time also includes documentation of this encounter, coordinating patient care and communicating with other healthcare professionals. Total time does not include separately billed tests performed on this date of service.
Data:
CXR 06-16-2023:
Mild to moderate cardiomegaly, accentuated by nonstandard projection and supine positioning.
No evidence to suggest vascular congestion or congestive heart failure. No focal interstitial or airspace opacity to indicate pneumonia. The lungs are clear.
No radiographically demonstrable pneumothorax, limited by supine positioning.
Subjective Dataa
Subjective Data
Date of Service:
Date of Service: June 17, 2023
Chief Complaint: Satellite Tv Technician Installer Follow Up
Subjective:
Patient seen today. He feels well. Has some shooting pain on the front of his right lower extremity down to his knee which happens occasionally and then goes away. BP 119/60, heart rate 61. He is on room air breathing comfortably. at
bedside, all questions were answered.
Review of Systems
General: Other (Negative unless mentioned above)
Objective Data
Data Reviewed
Vital Signs / I&O / Oxygen:
Vital Signs
Temp Pulse Resp BP Pulse Ox
98.1 F 48 19 136/58 93
06/17/23 15:13 06/17/23 15:13 06/17/23 15:13 06/17/23 15:13 06/17/23 15:13
Intake and Output
06/16/23 06/17/23 06/18/23
06:59 06:59 06:59
Intake Total 2680 / 2760 410 / 410
Output Total 1065 / 1065 75 / 75
Balance 1615 / 1695 335 / 335
SaO2 93
Nasal Cannula flow liters per 10
minute
Physical Exam
General: Respiratory Distress (negative) and Comfortable
HEENT: Normocephalic and Anicteric
Cardiovascular: S1-S2 and Peripheral Edema (negative)
Respiratory: Wheeze (negative), Crackles (negative), Rhonchi (negative) and Non-Labored Respirations
GI: Soft, Non Distended and Non Tender
Neurology: AO x 3
Skin: Warm, Dry and Other (Dressing over right groin with mild tenderness to palpation)
Labs/Micro/Reports
Lab Data
06/17/23 04:29
06/17/23 04:29
Laboratory Results
06/17/23
04:29
PT 13.7
INR 1.05
APTT 26.6
Microbiology
06/13/23 09:17 Nose MRSA Screen - Final
No Methicillin Resistant Staphylococcus aureus isolated.
[2023-06-17] MEDS: HEPARIN 5000 UNITS SC ×2 (07:59→19:46)
--- NOTE | 2023-06-17 08:10 | PTCARENOTE ---
appellate conferee, pt aaox3, SR HR 60s, RA Sat 96%, 3 IV WNL - R groin with aquacel drsg CDI, L groin with skin glue intact, NV checks intact. Tovar cath draining adequate amt yellow urine. prn dilaudid for R groin pain. POC discussed, call ravi w/pt.
[2023-06-17] MEDS: SPIRIVA RESPIMAT 2.5 MCG 2 PUFF INH (08:18)
[2023-06-17] MEDS: STRIVERDI RESPIMAT 2 PUFF INH (08:18)
--- NOTE | 2023-06-17 10:00 | PTCARENOTE ---
Tovar removed, A-Line removed, Pt assisted OOB to BR with void and flatus. To chair without issue.
[2023-06-17] MEDS: ROXICODONE 5 MG PO (10:33)
[2023-06-17] MEDS: TYLENOL 650 MG PO ×3 (10:34→19:44)
--- NOTE | 2023-06-17 11:20 | CM ---
CM following re: discharge planning.
Discussed in Rounds, reviewed pt's chart, met with pt.
Pt is a 78 year old male, admitted with primary dx of POD #1 EVAR with right femoral endarterectomy.
Pt reports he lives with spouse in a 2SH, 2 steps to enter, has 2 supportive children. 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 No DME, VN or SNF history.
Pt stated he feels he probably will be ready to return back home tomorrow or Tuesday. IMM reviewed, placed in chart, pt has a copy.
PCP: Luis Perkins
Pharmacy: [facility]
D/C cahd: home with anticipated no needs. Spouse to transport at discharge.
CM will follow with discharge plan updates as hospitalization progresses
[2023-06-17 11:58] VITALS: BP 119/68
--- NOTE | 2023-06-17 13:20 | PTCARENOTE ---
Patient received from ICU in wheelchair, ambulated to chair with standby assist; Left groin site with surgical glue, no drainage; Right groin site with aquacell dressing, clean/dry/intact; Bilateral pedal pulses +2; Patient denies numbness and/or
tingling; Patient placed on telemetry per order; Call rodrigues within reach; Patient and spouse oriented to unit; Assessment ongoing
[2023-06-17 13:26] VITALS: BP 158/56
--- NOTE | 2023-06-17 13:29 | TRANSFER ---
Pt assisted to wheelchair and escorted to 2116. Report given to PIETER Gilman
[2023-06-17] MEDS: LOW STRENGTH ASPIRIN 81 MG PO (13:53)
[2023-06-17] MEDS: PLAVIX 300 MG PO (13:53)
[2023-06-17 15:13] VITALS: BP 136/58
[2023-06-17] MEDS: NEURONTIN 100 MG PO ×2 (15:18→22:09)
[2023-06-17] MEDS: ROXICODONE 10 MG PO ×2 (18:17→22:19)
[2023-06-17 19:10] VITALS: BP 149/59
[2023-06-17] MEDS: COLACE 100 MG PO (19:44)
[2023-06-17] MEDS: LIPITOR 20 MG PO (22:09)
[2023-06-17 23:02] VITALS: BP 157/63
[2023-06-18] MEDS: TYLENOL PO (01:15)
[2023-06-18] MEDS: ROXICODONE 5 MG PO ×3 (03:19→12:22)
[2023-06-18] MEDS: TYLENOL 650 MG PO ×3 (03:20→11:31)
[2023-06-18 03:35] VITALS: BP 143/59
--- NOTE | 2023-06-18 06:40 | W.PN.VS ---
Addendum entered and electronically signed by Ham Tovar III, MD 06/18/23 08:03:
This patient was seen and examined with KARLOS Camarillo. I agree with the history and physical exam as well as the assessment and plan.
Signed:
Ham Tovar III, MD
[facility] Vascular Surgery
[phone] (mpkb)
Original Note:
Today's Communication / Plan
-
Patient seen and examined at bedside with Dr. Ham Tovar III, below plan reviewed with attending.
Assessment/Plan
-
Assessment: 78 year old male POD #2 EVAR with right femoral endarterectomy
Plan:
Continue current pain medication regimen for management of right leg suspected nerve pain
Continue DAPT
Discharge home today
Subjective Data
-
Date of Service: June 18, 2023
Patient seen and examined at bedside, reports continued improvement in right leg intermittent shocklike pain down the leg following pain medication regimen alterations. Denies nausea, vomiting, fever, and chills. Reports eagerness for discharge
home.
Objective Data
-
Vital Signs
Temp Pulse Resp BP Pulse Ox
98.1 F 56 18 143/59 93
06/18/23 03:35 06/18/23 03:35 06/18/23 03:35 06/18/23 03:35 06/18/23 03:35
Intake and Output
06/16/23 06/17/23 06/18/23
06:59 06:59 06:59
Intake Total 2680 / 2760 1610 / 1610
Output Total 1065 / 1065 575 / 575
Balance 1615 / 1695 1035 / 1035
Intake:
Oral fluids 1140 / 1140 1450 / 1450
IV fluids (Total) 1540 / 1620 160 / 160
NSS 100 / 100
Nss 1,000 ml @ 80 mls/hr IV . 1440 / 1520 160 / 160
[id number] [facility] Rx#:[id number]
Output:
Urine, Tovar 1065 / 1065 75 / 75
Urine, Voided 500 / 500
Other:
Number of approximated LARGE 2
amounts of urine
Calcium 8.0 mg/dl (8.4-10.2) L 06/17/23 04:29
Magnesium 1.8 mg/dl (1.6-2.3) 06/16/23 12:15
Physical Exam
-
AAOx3, NAD
No tachycardia
No dyspnea on room air
ABD soft, non-tender, non-distended
Right groin dressing removed site CDI with intact dermabond, and left groin dermabond CDI, BL groin without hematoma and surrounding compartments soft
BL DP pulses +2
[2023-06-18] MEDS: LOW STRENGTH ASPIRIN 81 MG PO (07:21)
[2023-06-18] MEDS: PLAVIX 75 MG PO (07:22)
[2023-06-18] MEDS: COLACE 100 MG PO (07:22)
[2023-06-18] MEDS: HEPARIN 5000 UNITS SC (07:23)
[2023-06-18] MEDS: NEURONTIN 100 MG PO (07:23)
[2023-06-18] MEDS: TENORMIN 25 MG PO (07:24)
[2023-06-18] MEDS: PROTONIX 40 MG PO (07:24)
[2023-06-18 07:30] VITALS: BP 162/65
--- NOTE | 2023-06-18 07:37 | W.[place]-PDMP ---
[place]PD[place]
-
Checked the [place]- Prescription Drug Monitoring Program website, no red flags identified; safe to proceed with prescription.
Patient endorses that he no longer takes Ambien at night for sleep, thus placed as discontinued on his discharge instructions.
--- NOTE | 2023-06-18 07:42 | W.DS.TRANS ---
DC Summary - Race Steward
-
Discharge Instructions:
Discharge Diagnosis/Procedures Open surgical exposure of right femoral artery
via right groin incision. Endovascular repair of
abdominal aortic aneurysm. Bilateral renal
artery stents. Extensive right iliofemoral
endarterectomy (distal external iliac artery,
common femoral, SFA proximally, origin of
profunda) with bovine pericardial patch
angioplasty. Percutaneous left common femoral
artery closure.
Diet As tolerated,Low Cholesterol
Activity No strenuous activity
Driving Restrictions No driving for 1 week
Bathing Restrictions OK to Shower
Instructions:
Stand-Alone Forms: DC Instr - Vascular OR
Changes to Home Medications: Yes
Discharge Medications:
DC Medications w/original date entered in [employer]
atorvastatin 20 mg tablet 20 mg PO HS High Cholesterol 04/04/10
alprazolam 0.5 mg tablet 0.5 mg PO PRN PRN anxiety 09/13/17
celecoxib 200 mg capsule 200 mg PO Q12H ##0 04/19/19
albuterol sulfate 90 mcg/actuation aerosol inhaler 1 inh inhalation Q4HPRN PRN SOB 06/06/23
atenolol 25 mg tablet 25 mg PO DAILY Blood Pressure 06/06/23
omeprazole 20 mg tablet,delayed release 20 mg PO DAILY Gastrointestinal Issue 06/06/23
tiotropium 2.5 mcg-olodaterol 2.5 mcg/actuation mist for inhalation (Stiolto Respimat) 2 puff inhalation DAILY Lung/Breathing Issues 06/06/23
aspirin 81 mg chewable tablet (Children's Aspirin) 81 mg PO DAILY #90 tabs 06/17/23
clopidogrel 75 mg tablet 75 mg PO DAILY #90 tabs 06/17/23
docusate sodium 100 mg capsule 100 mg PO BID #20 caps 06/17/23
gabapentin 100 mg capsule 100 mg PO TID #90 caps 06/17/23
oxycodone 5 mg tablet 5 mg PO Q4HPRN PRN mild pain #10 tabs 06/17/23
Home Medication Changes
Added:
aspirin 81 mg chewable tablet (Children's Aspirin) 81 mg PO DAILY #90 tabs 06/17/23
clopidogrel 75 mg tablet 75 mg PO DAILY #90 tabs 06/17/23
docusate sodium 100 mg capsule 100 mg PO BID #20 caps 06/17/23
gabapentin 100 mg capsule 100 mg PO TID #90 caps 06/17/23
oxycodone 5 mg tablet 5 mg PO Q4HPRN PRN mild pain #10 tabs 06/17/23
Hold:
alprazolam 0.5 mg tablet 0.5 mg PO PRN PRN anxiety 09/13/17
celecoxib 200 mg capsule 200 mg PO Q12H ##0 04/19/19
Patient states he no longer is taking Ambien at night
Pending Results: No
[2023-06-18] MEDS: STRIVERDI RESPIMAT 2 PUFF INH (07:57)
[2023-06-18] MEDS: SPIRIVA RESPIMAT 2.5 MCG 2 PUFF INH (07:58)
[2023-06-18 08:03] LABS: Hematocrit 35.1 % (39.0-52.0); Hemoglobin 11.9 g/dL (13.0-18.0); Mean Corp Hgb Conc. 33.9 g/dL (33.0-37.0); Mean Corpuscular Hgb 30.8 pg (27.0-31.0); Mean Corpuscular Volume 90.9 fL (80.0-94.0); Mean Platelet Volume 10.6 fL (7.4-10.4); Platelet Count 163 10^3/uL (130-400); Red Blood Cell Count 3.86 10^6/uL (4.70-6.10); Red Cell Dist. Width 14.7 % (11.5-14.5); White Blood Cell Count 11.7 10^3/uL (4.8-10.8)
[2023-06-18 08:49] LABS: Blood Urea Nitrogen 15 mg/dl (9-20); Calcium 8.9 mg/dl (8.4-10.2); Carbon Dioxide 26 mmol/L (22-30); Chloride 107 mmol/L (98-107); Estimated Creatinine Clearance 83 ml/min; Glucose 85 mg/dl (70-99); Potassium 3.8 mmol/L (3.5-5.1); Sodium 138 mmol/L (135-145); eGFR > 60.00
[2023-06-18 11:20] VITALS: BP 154/65
--- NOTE | 2023-06-18 11:24 | CM ---
Patient has been medically cleared for discharge to home with no additional skilled services. Patient's will transport home.
--- NOTE | 2023-06-21 13:06 | W.DCSUMMARY ---
Discharge Summary
Discharge Data
Date of Admission: 06/16/23
Date of Discharge: 06/18/23
-
Pending Results: No
Additional Pending Results:
Attending: Omar Hale MD
Consultants: Pulmonary medicine
Allergies: Bactrim
Procedure with date:
1. Open surgical exposure of right femoral artery via right groin incision.
2. Endovascular repair of abdominal aortic aneurysm with Cook ZFEN fenestrated endovascular stent graft with bilateral renal artery small fenestrations and SMA large fenestration.
3. Bilateral renal artery stents with Atrium iCAST 6mm x 22mm covered stent left renal artery, Atrium iCAST 6m x 22mm covered stents x 2 (overlapping) right renal artery.
4. Distal aortic extension with Cook [place] 2 tube thoracic stent graft.
5. Extensive right iliofemoral endarterectomy (distal external iliac artery, common femoral, SFA proximally, origin of profunda) with bovine pericardial patch angioplasty.
6. Percutaneous left common femoral artery closure.
7. Supervision and interpretation :06/16/[address] Omar Hale
History of present illness: The patient is an 78-year-old male with multiple medical conditions including: anxiety, COPD, Paget's disease, GERD, osteoarthritis, and AAA,. Patient presented on 06/16/2023 for scheduled procedure with Dr. Hale. Patient
presented at baseline health with no reports of recent illness or trauma.
Hospital Course: Briefly, the patient underwent scheduled FEVAR without complications, and recovered in PACU. Following recovery phase one and two patient was transferred to intensive care unit per protocol for continued hemodynamic monitoring.
Cook [place] consulted to aid in medical management from a critical care perspective. POD #1 (06/17/2023) patient endorses shocklike pain that radiates from right leg down intermittently occurring, pain medication adjustment made to better cover
patient's report of suspected nerve pain. Denies nausea, vomiting, fever, and chills. Reports tolerating PO diet. Deemed stable for transfer to telemetry floor. Discontinuation of arterial line, IV fluids, and Tovar catheter. Patient tolerating
ambulation. Right groin dressing CDI and left groin dermabond CDI, BL groin without hematoma and surrounding compartments soft. POD #2 (06/18/2023) patient reports vast improvement in right leg intermittent shooting pain, endorses adjustments made
to pain medication regimen have greatly helped him. He reports eagerness for discharge to home. Right groin dressing removed, Dermabond intact, and surgical incision is CDI. Bilateral groin with no evidence of hematoma. Patient reports
tolerating ambulation and multiple urinary voids following Tovar catheter removal the previous day. Deemed stable for discharge to home.
Prescriptions and follow up appointment are included in the DC summary flexo operator note. All instructions were given to the patient in both written and verbal form and the patient expressed understanding.
Discharge Plan
-
Patient Disposition: Home (Routine Discharge)
Discharge Diagnosis/Procedures: Open surgical exposure of right femoral artery via right groin incision. Endovascular repair of abdominal aortic aneurysm. Bilateral renal artery stents. Extensive right iliofemoral endarterectomy (distal external
iliac artery, common femoral, SFA proximally, origin of profunda) with bovine pericardial patch angioplasty. Percutaneous left common femoral artery closure.
Condition: Good
Diet: As tolerated and Low Cholesterol
Activity: No strenuous activity
Driving Restrictions: No driving for 1 week
Bathing Restrictions: OK to Shower
Stand Alone Forms: DC Instr - Vascular OR
Referrals:
Luis Perkins MD [Family Provider] -
Fer Pope MD [Active] - 08/02/23 10:15 am
Isaura Wolfe CRNP [Specified Professional Personl] - 06/30/23 8:15 am
Prescriptions:
New
docusate sodium 100 mg Capsule
100 mg PO BID Qty: 20 0RF
aspirin [Children's Aspirin] 81 mg Tablet,Chewable
81 mg PO DAILY Qty: 90 0RF
clopidogrel 75 mg Tablet
75 mg PO DAILY Qty: 90 0RF
gabapentin 100 mg Capsule
100 mg PO TID Qty: 90 0RF
oxycodone 5 mg Tablet
5 mg PO Q4HPRN PRN (Reason: mild pain) Qty: 10 0RF
Continued
atorvastatin 20 MG tablet
20 mg PO HS
omeprazole 20 mg Tablet,Delayed Release (Dr/Ec)
20 mg PO DAILY
atenolol 25 mg Tablet
25 mg PO DAILY
albuterol sulfate 90 mcg/actuation Hfa Aerosol Inhaler
1 inh INHALATION Q4HPRN PRN (Reason: SOB)
Stiolto Respimat 2.5-2.5 mcg/actuation Mist
2 puff INHALATION DAILY
Held
alprazolam 0.5 MG tablet
0.5 mg PO PRN PRN (Reason: anxiety)
Hold Instructions: Resume on 06/24/23. Please hold while taking narctoic pain medication.
celecoxib 200 MG capsule
200 mg PO Q12H Qty: 0 0RF
Hold Instructions: Resume on 07/01/23. Please hold until follow up appointment.
Discontinued
zolpidem 5 MG tablet
5 mg PO HS PRN (Reason: Insomnia)
Discharge Orders:
Discharge Patient (As Directed); Ordered 06/18/23
Ordered By: Maxine Polanco
Discharge Date and Time
Discharge Date/Time: 06/18/23 12:43
Print Language: DIVEHI
== END 2023-06-18 12:43 | disposition home or self-care (01) | DRG 268 ==
LOC: 2 SOUTH 06:33
PROVIDERS: Nurse Practitioner; ADMITTING PHYSICIAN Surgery Vascular Surgery; CONSULT PHYSICIAN Internal Medicine Critical Care Medicine; FAMILY PHYSICIAN Family Medicine
PROC: 04CH3ZZ Extirpation of Matter from Right External Iliac Artery, Percutaneous Approach (ICD-10-PCS; 2023-06-16)
PROC: 04U Lower Arteries, Supplement (ICD-10-PCS; 2023-06-16)
PROC: 04CK3ZZ Extirpation of Matter from Right Femoral Artery, Percutaneous Approach (ICD-10-PCS; 2023-06-16)
PROC: 04V03FZ Restriction of Abdominal Aorta with Branched or Fenestrated Intraluminal Device, Three or More Arteries, Percutaneous Approach (ICD-10-PCS; 2023-06-16)
PROC: 04UK3KZ Supplement Right Femoral Artery with Nonautologous Tissue Substitute, Percutaneous Approach (ICD-10-PCS; 2023-06-16)
DX: I71.42 Juxtarenal abdominal aortic aneurysm, without rupture (principal); J96.01 Acute respiratory failure with hypoxia; J43.9 Emphysema, unspecified; E78.00 Pure hypercholesterolemia, unspecified; K21.9 Gastro-esophageal reflux disease without esophagitis; F41.9 Anxiety disorder, unspecified; M48.061 Spinal stenosis, lumbar region without neurogenic claudication; K44.9 Diaphragmatic hernia without obstruction or gangrene; Q27.2 Other congenital malformations of renal artery; Z79.899 Other long term (current) drug therapy; Z86.16 Personal history of COVID-19; Z87.891 Personal history of nicotine dependence; Z98.1 Arthrodesis status
CPT/HCPCS: 88304; 88311; 34812; 34843; 35355; 36415; 37236; 37237; 71045; 80048; 83735; 85025; 85027; 85610; 85730; 86850; 86900; 86901; 87070; 93005; 94640; C1725; C1760; C1769; C1874; C1892; C1894; C2628; Q9967

== ENCOUNTER → 2023-07-21 07:52 | Outpatient (REF) | payer MEDICARE, SELFPAY | LOC: HWRAD 07:52 | PROVIDERS: ATTENDING PHYSICIAN Registered Nurse; FAMILY PHYSICIAN Family Medicine | DX: I71.40 Abdominal aortic aneurysm, without rupture, unspecified (principal) | CPT/HCPCS: 74174; Q9967 ==

== ENCOUNTER → 2023-07-25 08:54 | Outpatient (REF) | payer MEDICARE, SELFPAY | LOC: RAD 08:54 | PROVIDERS: ATTENDING PHYSICIAN Registered Nurse; FAMILY PHYSICIAN Family Medicine | DX: I71.40 Abdominal aortic aneurysm, without rupture, unspecified (principal) | CPT/HCPCS: 93922 ==

== ENCOUNTER → 2023-10-04 16:16 | Outpatient (REF) | payer MEDICARE, SELFPAY | LOC: RAD 16:16 | PROVIDERS: ATTENDING PHYSICIAN Podiatrist Foot Surgery; FAMILY PHYSICIAN Family Medicine | DX: M76.62 Achilles tendinitis, left leg (principal); M79.604 Pain in right leg | CPT/HCPCS: 93971 ==

== ENCOUNTER 2023-10-08 19:30 | Emergency (ER) | payer MEDICARE, SELFPAY ==
[2023-10-08 19:33] VITALS: BP 135/54
[2023-10-08 20:17] LABS: Urine Albumin Negative (Neg - Trace); Urine Bilirubin Negative (Negative); Urine Character Clear (Clear); Urine Color Straw; Urine Glucose Negative (Negative); Urine Ketone Negative (Negative); Urine Leukocyte Negative (Negative); Urine Nitrite Negative (Negative); Urine Occult Blood Negative (Negative); Urine Urobilinogen Negative (Neg - 1+)
--- NOTE | 2023-10-08 20:21 | ED.CVA ---
History of Present Illness
General
Chief Complaint: CVA/TIA Symptoms
Time Seen by Provider: 10/08/23 20:11
Onset of Stroke Symptoms
Onset of symptoms known: No
Time pt last seen normal is known: No
History of Present Illness
History of Present Illness:
HPI: I spoke to the for history. The patient has chronic balance issues. The patient was drinking alcohol this evening. The states that he brought his own alcohol. He was fine before he started drinking alcohol at dinner with friends.
Throughout the evening he became increasingly bizarre and not acting like his normal self. She was concerned of slurred speech.
EXAM:
GENERAL: The patient appears to be under the effects of alcohol
HEENT: Moist oral mucosa, odor of alcohol noted
ABDOMEN: Soft with no peritoneal signs, no tenderness
NEUROLOGIC: The patient has good strength in all extremities, he was able to get up from the stretcher on his own without assistance, he was able to walk to the door without assistance although I did watch him very closely, finger-nose testing was
relatively unremarkable.
PSYCHIATRIC: The patient appears to have some slurred speech related to alcohol use but overall is giving a reasonable history and cannot recall prior events
EXTREMITIES: Nontender, no edema, moves all extremities equally
SKIN: No rash, no lesions
TIME OF INITIAL ENCOUNTER: 8 PM
NUMBER AND COMPLEXITY OF PROBLEMS ADDRESSED AT THE ENCOUNTER
� Chronic conditions affecting care: Chronic balance issues, COPD, AAA, high blood pressure, hyperlipidemia, diabetes
� Acute Exacerbation and/or Progression of Chronic Illness: This is an acute problem
� Differential Diagnosis includes: Alcohol use, CVA, hypoglycemia, electrolyte normality
AMOUNT AND/OR COMPLEXITY OF DATA TO BE REVIEWED AND ANALYZED
� I performed an independent evaluation of and my interpretation is:
EKG:
CT:
X-rays:
Laboratory Studies: Patient refused studies
Other:
� Review of other/old records: I reviewed records, the patient had a AAA repair in May 2023
� Clinical information was obtained by an independent historian: I spoke to the at bedside
� Prescriptions/Medications Considered but not given:
� Further testing considered but not performed:
RISK OF COMPLICATIONS AND/OR MORBIDITY OR MORTALITY OF PATIENT MANAGEMENT
� Social determinants of health affecting care: Lives at home, drank alcohol this evening
� Discussion with other providers:
� Escalation of care including admission/observation vs risk of discharge considered: Before I evaluated the patient, the patient was increasingly combative while in the emergency department and nurses asked me for assistance.
As I walked in the room, the patient tells me that he is leaving. He tells me that he was drinking alcohol earlier in the evening. He states he had '2 drinks'. The said that it was a BYOB and she is uncertain how much alcohol he had to
drink. The patient's gait was tested. He is absolutely adamant that there was nothing wrong with him. I strongly encouraged/recommended having further evaluation however the patient refused. I strongly suspect alcohol use as a contributing
factor for his symptoms. I do not feel that he is altered enough to physically restrain him or chemically restrain as I feel that he has, for the most part, appropriate mental status other than being rather argumentative. His reports that he
is overall improving currently. He refuses to sign out AGAINST MEDICAL ADVICE but I informed him that he is leaving AGAINST MEDICAL ADVICE as he is refusing any further testing.
Past History
Past History
ED Past Medical History: GERD and Hypercholesterolemia
ED Past Surgical History: None
Social History
Tobacco: Non-smoker
Alcohol: Occasional
Drug: None
Personal:
Living: with family
Employment: Employed
Family History
Family History: Unable to obtain
Phy Exam
Physical Exam
Physical Exam:
See HPI
Course
Orders/Labs/Results
Orders:
Orders
10/08/23 19:44
EKG [Electrocardiogram (*1)] Urgent
Reason for Study: TIA/Stroke
Alcohol Urgent
Complete Blood Count/With Diff Urgent
Comprehensive Metabolic Panel Urgent
Troponin I Urgent
10/08/23 19:45
EKG- Treatment ONCE
10/08/23 20:14
Urinalysis Urgent
Date Specimen was Collected: 10/08/23
Time Specimen was Collected: 19:53
Urine Drug Abuse Screen Urgent
Date Specimen was Collected: 10/08/23
Time Specimen was Collected: 19:53
Vital Signs
Initial and Last Documented VS:
Initial Vital Signs
Temp Pulse Resp BP Pulse Ox
98.3 F 76 20 135/54 99
10/08/23 19:33 10/08/23 19:33 10/08/23 19:33 10/08/23 19:33 10/08/23 19:33
Last Documented Vital Signs
Temp Pulse Resp BP Pulse Ox
98.3 F 76 20 135/54 99
10/08/23 19:33 10/08/23 19:33 10/08/23 19:33 10/08/23 19:33 10/08/23 19:33
*Critical Care Note
Total Time (30-74mins, 75-104mins- exclusive of procedures): Not Applicable
ED Attending Note
-
Portions of this chart may have been created with voice recognition software.� Occasional wrong word or��sound alike� substitutions may have occurred due to the inherent limitations of voice recognition software.
Discharge Plan
Departure
Patient Disposition: Against Medical Advice
Date of Disposition: 10/08/23
Time of Disposition: 20:19
Discharge Problem:
Alcohol use
Prescriptions:
No Action
atorvastatin 20 MG tablet
20 mg PO HS
alprazolam 0.5 MG tablet
0.5 mg PO PRN PRN (Reason: anxiety)
celecoxib 200 MG capsule
200 mg PO Q12H Qty: 0 0RF
omeprazole 20 mg Tablet,Delayed Release (Dr/Ec)
20 mg PO DAILY
atenolol 25 mg Tablet
25 mg PO DAILY
albuterol sulfate 90 mcg/actuation Hfa Aerosol Inhaler
1 inh INHALATION Q4HPRN PRN (Reason: SOB)
Stiolto Respimat 2.5-2.5 mcg/actuation Mist
2 puff INHALATION DAILY
docusate sodium 100 mg Capsule
100 mg PO BID Qty: 20 0RF
aspirin [Children's Aspirin] 81 mg Tablet,Chewable
81 mg PO DAILY Qty: 90 0RF
clopidogrel 75 mg Tablet
75 mg PO DAILY Qty: 90 0RF
gabapentin 100 mg Capsule
100 mg PO TID Qty: 90 0RF
oxycodone 5 mg Tablet
5 mg PO Q4HPRN PRN (Reason: mild pain) Qty: 10 0RF
Activity Restrictions/Additional Instructions:
Given your 's concerns, I recommended multiple times to have a CAT scan and to have blood work. You have refused this. You are leaving against my medical advice. You are encouraged to return here if there is any further concerns. No driving
tonight.
Interventions
Interventions:
*Risk Screen - Suicide Last Done: 10/08/23 19:33
*General Assessment Last Done: 10/08/23 19:33
*Neglect/Abuse Screening Last Done: 10/08/23 19:33
Discharge Date and Time
Print Language: [place]
[2023-10-08 20:27] LABS: Amphetamines Negative (Negative); Barbiturates Negative (Negative); Benzodiazepines Negative (Negative); Buprenorphine Negative (Negative); Cocaine Negative (Negative); Marijuana Negative (Negative); Methadone Negative (Negative); Methamphetamines Negative (Negative); Opiates Negative (Negative); Phencyclidine Negative (Negative); Tricyclic Antidepressants Negative (Negative)
== END 2023-10-08 20:36 | disposition left against medical advice (07) ==
LOC: EMR 19:30
PROVIDERS: EMERGENCY PHYSICIAN Emergency Medicine
DX: R47.81 Slurred speech (principal); F10.90 Alcohol use, unspecified, uncomplicated; Z53.29 Procedure and treatment not carried out because of patient's decision for other reasons; J44.9 Chronic obstructive pulmonary disease, unspecified; I10 Essential (primary) hypertension; E11.9 Type 2 diabetes mellitus without complications; E78.5 Hyperlipidemia, unspecified; Z79.82 Long term (current) use of aspirin; Z88.1 Allergy status to other antibiotic agents; Z88.2 Allergy status to sulfonamides
CPT/HCPCS: 99281; 80306; 81003

== ENCOUNTER → 2023-10-21 07:35 | Outpatient (REF) | payer MEDICARE, SELFPAY ==
[2023-10-21 08:41] LABS: ALT (SGPT) 16 U/L (0-50); AST (SGOT) 24 U/L (17-59); Albumin 4.3 g/dl (3.5-5.0); Alkaline Phosphatase 93 U/L (38-126); Blood Urea Nitrogen 10 mg/dl (9-20); Calcium 10.2 mg/dl (8.4-10.2); Carbon Dioxide 32 mmol/L (22-30); Chloride 104 mmol/L (98-107); Glucose 99 mg/dl (70-99); Potassium 4.5 mmol/L (3.5-5.1); Sodium 144 mmol/L (135-145); Total Bilirubin 0.9 mg/dl (0.2-1.3); Total Protein 6.6 g/dl (6.3-8.2); eGFR > 60.00
[2023-10-21 09:12] LABS: TSH Reflex To Free T4 1.74 uIU/ml (0.47-4.68)
[2023-10-21 09:31] LABS: Vitamin B12 216 pg/ml (239-931)
== END ==
LOC: REG 07:35
PROVIDERS: ATTENDING PHYSICIAN Physician Assistant
DX: R26.89 Other abnormalities of gait and mobility (principal); R47.81 Slurred speech; Z91.81 History of falling
CPT/HCPCS: 36415; 80053; 82607; 84443; 86618

== ENCOUNTER → 2023-11-18 07:15 | Outpatient (REF) | payer MEDICARE, SELFPAY ==
[2023-11-18 08:05] LABS: % Eosinophils 4.6 % (0-6); % Immature Granulocytes 0.8 % (0-0.5); % Lymphocytes 33.4 % (20.5-51.1); % Monocytes 8.3 % (1.7-9.3); % Neutrophils 51.9 % (42.2-75.2); Absolute Basophils 0.1 10^3/uL (0-0.2); Absolute Eosinophils 0.5 10^3/uL (0-0.7); Absolute Immature Granulocytes 0.1 10^3/uL (0-0.05); Absolute Lymphocytes 3.4 10^3/uL (1.2-3.4); Absolute Monocytes 0.9 10^3/uL (0.1-0.6); Absolute Neutrophils 5.3 10^3/uL (1.4-6.5); Hematocrit 45.5 % (39.0-52.0); Hemoglobin 15.8 g/dL (13.0-18.0); Mean Corp Hgb Conc. 34.7 g/dL (33.0-37.0); Mean Corpuscular Volume 89.2 fL (80.0-94.0); Mean Platelet Volume 10.3 fL (7.4-10.4); Nucleated Red Blood Cells % 0 % (-); Platelet Count 233 10^3/uL (130-400); Red Cell Dist. Width 13.2 % (11.5-14.5); White Blood Cell Count 10.2 10^3/uL (4.8-10.8)
[2023-11-18 08:48] LABS: ALT (SGPT) 17 U/L (0-50); AST (SGOT) 23 U/L (17-59); Albumin 4.2 g/dl (3.5-5.0); Alkaline Phosphatase 95 U/L (38-126); Blood Urea Nitrogen 13 mg/dl (9-20); Calcium 9.8 mg/dl (8.4-10.2); Carbon Dioxide 28 mmol/L (22-30); Chloride 105 mmol/L (98-107); Glucose 100 mg/dl (70-99); HDL Cholesterol 45 mg/dl; LDL Cholesterol, Calculated 93 mg/dl; Potassium 4.3 mmol/L (3.5-5.1); Sodium 142 mmol/L (135-145); Total Bilirubin 0.6 mg/dl (0.2-1.3); Total Cholesterol 167 mg/dl (50-199); Total Protein 6.5 g/dl (6.3-8.2); Triglyceride 147 mg/dl (10-149); Very Low Density Lipoprotein 29 mg/dl (0-30); eGFR > 60.00
[2023-11-18 08:51] LABS: Glycohemoglobin (HgbA1c) 5.6 % (4.0-5.6)
[2023-11-18 09:17] LABS: TSH Reflex To Free T4 1.49 uIU/ml (0.47-4.68)
[2023-11-18 09:36] LABS: Vitamin B12 507 pg/ml (239-931)
[2023-11-20 03:15] LABS: Apolipoprotein B 94 mg/dL (66-133)
[2023-11-20 03:49] LABS: Lipoprotein a (Lp a) 35 mg/dL (<=29)
== END ==
LOC: REG 07:15
PROVIDERS: ATTENDING PHYSICIAN Internal Medicine Interventional Cardiology; FAMILY PHYSICIAN Physician Assistant; REFERRING PHYSICIAN Family Medicine
DX: E53.8 Deficiency of other specified B group vitamins (principal); I10 Essential (primary) hypertension; E78.2 Mixed hyperlipidemia; R73.09 Other abnormal glucose
CPT/HCPCS: 36415; 80053; 80061; 82172; 82607; 83036; 83695; 84443; 85025

== ENCOUNTER → 2024-01-02 15:40 | Outpatient (REF) | payer MEDICARE, SELFPAY | LOC: HWRAD 15:40 | PROVIDERS: ATTENDING PHYSICIAN Family Medicine | DX: R29.898 Other symptoms and signs involving the musculoskeletal system (principal) | CPT/HCPCS: 70450 ==

== ENCOUNTER 2024-01-06 19:13 | Emergency (ER) | payer MEDICARE, SELFPAY ==
[2024-01-06 19:20] VITALS: BP 158/66
[2024-01-06 19:27] VITALS: BMI 26.0
--- NOTE | 2024-01-06 19:31 | ED.GENMED ---
History of Present Illness
General
Chief Complaint: Numbness
Time Seen by Provider: 01/06/24 19:31
History of Present Illness
History of Present Illness:
TIME OF INITIAL ENCOUNTER: 7:30 PM
HPI: At 5 PM tonight, while at [address], but without drinking any alcohol, the patient had facial drooping, right upper extremity weakness, and repetitive speech. This lasted for approximately 1 hour. He did not want to go to the hospital at that
time and he drove himself home. His got home around 6:30 PM and decided to bring him here for further evaluation. says he has had chronic vertigo issues. About a week ago he had an episode where he could not walk and reports having a
negative brain CT earlier this week. Currently denies any neurologic symptoms including any visual changes.
EXAM:
GENERAL: Well appearing in no distress
HEENT: Moist oral mucosa
CARDIOVASCULAR: No murmurs, normal heart rate, regular rhythm, No chest wall tenderness
PULMONARY: No respiratory distress, breath sounds are clear and equal
ABDOMEN: Soft with no peritoneal signs, no tenderness
NEUROLOGIC: Excellent strength all extremities, no coordination deficits, NIHSS equals 0, normal finger-nose testing
PSYCHIATRIC: Appropriate mental status, normal insight and judgement
EXTREMITIES: Nontender, no edema, moves all extremities equally
SKIN: No rash, no lesions
NUMBER AND COMPLEXITY OF PROBLEMS ADDRESSED AT THE ENCOUNTER
� Chronic conditions affecting care: High blood pressure, hyperlipidemia, AAA repair, GERD, diabetes
� Acute Exacerbation and/or Progression of Chronic Illness: This is an acute but recurring problem
� Differential Diagnosis includes: TIA, alcohol use, CVA, electrolyte normality,
AMOUNT AND/OR COMPLEXITY OF DATA TO BE REVIEWED AND ANALYZED
� I performed an independent evaluation of and my interpretation is:
EKG: EKG sinus 50, normal axis, no acute ST abnormality, no significant change from 06/16/2023
CT: CT imaging of the head is negative, CTA head and neck is also negative
X-rays:
Laboratory Studies: White count 13.3, hemoglobin normal, chemistries unremarkable, alcohol undetected
Other:
� Review of other/old records: I reviewed records from September of this year when I saw him in the emergency department. At that time he left AGAINST MEDICAL ADVICE but admitted to drinking alcohol. Brain CT 01/02/2024 was
negative other than moderate diffuse cortical and cerebellar atrophy.
� Clinical information was obtained by an independent historian: I spoke to the extensively at bedside
� Prescriptions/Medications Considered but not given:
� Further testing considered but not performed:
RISK OF COMPLICATIONS AND/OR MORBIDITY OR MORTALITY OF PATIENT MANAGEMENT
� Social determinants of health affecting care: Lives with , no longer drinks heavily
� Discussion with other providers: I discussed case with Dr. Pitts�recasyamended CTA imaging which performed and was negative. Also recommend 3 course of Plavix on top of aspirin.
� Escalation of care including admission/observation vs risk of discharge considered: Triage nurse activated stroke alert upon patient presentation to triage. However when I evaluated the patient immediately after arrival, the
patient denies any ongoing symptoms. Initial blood sugar 102.
ANY OTHER UPDATES:
8:40 PM: I reassessed patient and he again has no further symptoms. The patient strong prefers outpatient management which I feel is reasonable.
Past History
Past History
ED Past Medical History: GERD and Hypercholesterolemia
ED Past Surgical History: None
Social History
Tobacco: Non-smoker
Alcohol: Occasional
Drug: None
Personal:
Living: with family
Employment: Employed
Family History
Family History: Unable to obtain
Phy Exam
Physical Exam
Physical Exam:
See HPI
Course
Orders/Labs/Results
Orders:
Orders
01/06/24 19:31
CT HEAD STROKE ALERT W/o Cont Urgent
Reason For Exam: resolved facial droop and RUE weakness
01/06/24 19:32
Electrocardiogram (*1) Urgent
Reason for Study: TIA/Stroke
EKG- Treatment ONCE
01/06/24 19:33
Alcohol Urgent
Complete Blood Count/With Diff Urgent
Comprehensive Metabolic Panel Urgent
01/06/24 19:49
CT HEAD/NECK ANG STROKE ALERT Urgent
Comment:
Reason For Exam: resolved facial droop, RUE weak; rec by neuro
01/06/24 20:47
Clopidogrel Bisulfate [Plavix] 75 mg PO NOW STA
Abnormal Lab Results
01/06/24 01/06/24
19:30 19:33
WBC 13.3 H 10^3/uL
(4.8-10.8)
MPV 10.5 H fL
(7.4-10.4)
Abs Immat Gran (auto) 0.1 H 10^3/uL
(0-0.05)
Absolute Neuts (auto) 8.6 H 10^3/uL
(1.4-6.5)
Absolute Monos (auto) 0.9 H 10^3/uL
(0.1-0.6)
Immature Gran % 0.6 H %
(0-0.5)
Glucose 101 H mg/dl
(70-99)
POC Glucose 102 H mg/dl
(70-99)
01/06/24 19:33
01/06/24 19:33
Vital Signs
Initial and Last Documented VS:
Initial Vital Signs
Temp Pulse Resp BP Pulse Ox
97.9 F 49 17 158/66 98
01/06/24 19:20 01/06/24 19:20 01/06/24 19:20 01/06/24 19:20 01/06/24 19:20
Last Documented Vital Signs
Temp Pulse Resp BP Pulse Ox
97.8 F 52 18 146/60 99
01/06/24 19:37 01/06/24 19:37 01/06/24 19:37 01/06/24 19:37 01/06/24 19:37
*Critical Care Note
Total Time (30-74mins, 75-104mins- exclusive of procedures): Not Applicable
ED Attending Note
-
Portions of this chart may have been created with voice recognition software.� Occasional wrong word or��sound alike� substitutions may have occurred due to the inherent limitations of voice recognition software.
Discharge Plan
Departure
Patient Disposition: Home (Routine Discharge)
Date of Disposition: 01/06/24
Time of Disposition: 20:45
Patient with high blood pressure during this ER visit?: Yes
Discharge Problem:
TIA (transient ischemic attack)
Prescriptions:
New
clopidogrel [Plavix] 75 mg tablet
75 mg PO DAILY Qty: 21 0RF
No Action
atorvastatin 20 MG tablet
20 mg PO QPM
omeprazole 20 mg Tablet,Delayed Release (Dr/Ec)
20 mg PO QPM
atenolol 25 mg Tablet
25 mg PO QPM
aspirin [Children's Aspirin] 81 mg tablet,chewable
81 mg PO QPM
Referrals:
Luis Perkins MD [Family Provider] -
Surjit Pitts MD [Active] - Call in 1-3 days for appt
Activity Restrictions/Additional Instructions:
The CAT scan of the brain shows no acute abnormality. We also did a CAT scan of the blood vessels of the head and neck and there was also no sign of blockages. I spoke to neurologist, Dr. García, he recommends a 3 course of Plavix�I sent a
prescription for this to your pharmacy.
Interventions
Interventions:
*Risk Screen - Suicide Last Done: 01/06/24 19:20
*General Assessment Last Done: 01/06/24 19:20
*Neglect/Abuse Screening Last Done: 01/06/24 19:20
*ED COVID-19 Vaccine History Last Done: 01/06/24 19:20
Discharge Date and Time
Print Language: TAJIK
[2024-01-06 19:32] LABS: Glucose - Point of Care 102 mg/dl (70-99)
[2024-01-06 19:37] VITALS: BP 146/60
[2024-01-06 19:50] LABS: % Eosinophils 1.7 % (0-6); % Immature Granulocytes 0.6 % (0-0.5); % Monocytes 6.9 % (1.7-9.3); % Neutrophils 64.8 % (42.2-75.2); Absolute Basophils 0.1 10^3/uL (0-0.2); Absolute Eosinophils 0.2 10^3/uL (0-0.7); Absolute Immature Granulocytes 0.1 10^3/uL (0-0.05); Absolute Lymphocytes 3.3 10^3/uL (1.2-3.4); Absolute Monocytes 0.9 10^3/uL (0.1-0.6); Absolute Neutrophils 8.6 10^3/uL (1.4-6.5); Hematocrit 46.9 % (39.0-52.0); Hemoglobin 16.1 g/dL (13.0-18.0); Mean Corp Hgb Conc. 34.3 g/dL (33.0-37.0); Mean Corpuscular Volume 90.2 fL (80.0-94.0); Mean Platelet Volume 10.5 fL (7.4-10.4); Nucleated Red Blood Cells % 0 % (-); Platelet Count 264 10^3/uL (130-400); Red Cell Dist. Width 13.6 % (11.5-14.5); White Blood Cell Count 13.3 10^3/uL (4.8-10.8)
[2024-01-06 20:06] LABS: ALT (SGPT) 15 U/L (0-50); AST (SGOT) 21 U/L (17-59); Albumin 4.5 g/dl (3.5-5.0); Alkaline Phosphatase 86 U/L (38-126); Blood Urea Nitrogen 11 mg/dl (9-20); Carbon Dioxide 28 mmol/L (22-30); Chloride 100 mmol/L (98-107); Estimated Creatinine Clearance 73 ml/min; Glucose 101 mg/dl (70-99); Potassium 3.9 mmol/L (3.5-5.1); Sodium 139 mmol/L (135-145); Total Bilirubin 0.8 mg/dl (0.2-1.3); Total Protein 6.8 g/dl (6.3-8.2); eGFR > 60.00
[2024-01-06 20:07] LABS: Alcohol None Detected
[2024-01-06 20:36] VITALS: BP 129/65
[2024-01-06 21:00] VITALS: BP 144/91
[2024-01-06] MEDS: PLAVIX 75 MG PO (21:02)
== END 2024-01-06 21:36 | disposition home or self-care (01) ==
LOC: EMR 19:13
PROVIDERS: EMERGENCY PHYSICIAN Emergency Medicine; FAMILY PHYSICIAN Family Medicine
DX: G45.9 Transient cerebral ischemic attack, unspecified (principal); I10 Essential (primary) hypertension; E78.00 Pure hypercholesterolemia, unspecified
CPT/HCPCS: 99285; 70450; 70496; 70498; 80053; 82077; 82962; 85025; 93005; Q9967

== ENCOUNTER 2024-01-14 12:01 | Inpatient (IN) | payer MEDICARE, SELFPAY ==
[2024-01-14] VITALS (9 sets, daily range): BP systolic 135–153; BP diastolic 61–83; BMI 26.9
[2024-01-14 10:26] LABS: Glucose - Point of Care 88 mg/dl (70-99)
--- NOTE | 2024-01-14 10:27 | CON.NEURO ---
Consultation
Order
Date of Consultation: 01/14/24
Requesting Provider: Oneil Bush MD
Reason for Consult: Stroke alert
Neurology Consult Note.
HPI: This is a 78-year-old right-handed man who presented to [facility] on 01/14/2024 with right hemiparesis. According to EMS the patient was unable to place an order at [facility] around 930 am today prompting the evaluation.
Mr. Espinosa states that his right-sided weakness occurred around 9:00 today.
The patient was seen for transient right hemiparesis lasting for less than 1 hour on 01/06/2024 at [facility]. He reportedly had brain MRI at [place], [place] yesterday.
VS by EMS: 140/73, 47, 16, fingerstick�106:
EKG: Sinus bradycardia at 46,QTc Int : [address] head�no acute infarcts
CTA head/neck-No significant vascular occlusion, aneurysm or dissection.
PMH: Paget's Disease, PAD, HTN, DLP, AAA, Primary insomnia , COPD, GERD, diverticulosis, Vitamin B12 deficiency
PSH: R iliofemoral endarterectomy and FEVAR(05/2023), BL, R TKA, L3-L5 fusion, YARELY, LS fusion, b/l shoulder arthroscopy, lap appendectomy with partial cecectomy
SH: , non-smoker.
All: Sulfas.
ROS:positive for R HP
Assessment and Plan:
I. Acute L lacunar syndrome.
II. Acute/subacute multifocal basal ganglia infarcts.
III. PAD
Initial decision was made to start TNK. However after receiving brain MRI(01/13/2024) report indicating an acute subacute infarcts the treatment was not initiated
-Continue Telemetry monitoring.
-Avoid cerebral hypoperfusion
-TTE with bubble studies
-Continue aspirin 81 mg once a day and Plavix 75 mg QD. Will consider Brilinta if medication compliance confirmed based on stroke mechanism
-Lipitor 40 mg QHS.
-Please check HbA1C, LDL.
-Brain MRI without lupe
-PT.
-DVT prophylaxis.
I personally reviewed all radiology and labs along with past medical records pertinent to current medical problems. Total time spent in patient care is 60 minutes.
Thank you for allowing us to participate in the care of this patient. We will continue to follow. Please do not hesitate to contact us with any questions or concerns.
Subjective/Objective
Subjective Data
Date of Service: January 14, 2024
Objective Data
Patient Allergies
sulfamethoxazole [From Bactrim] Allergy (Verified 10/08/23 19:33)
racing heart rate
trimethoprim [From Bactrim] Allergy (Verified 10/08/23 19:33)
racing heart rate
CVA Assessment
Onset of Stroke Symptoms
Time of onset of symptoms: 10:27
Date last time pt seen normal: 01/14/24 (9:00 AM)
NIH Stroke Score
Level of Consciousness: 0 - Alert
LOC Questions: 0-Answers both correctly
Best Horizontal Gaze: 0-Normal
Visual Brown: 0=Normal, no visual loss
Facial Palsy: 1=Minor paralysis
Motor - Right Arm: 3=None vs. gravity
Motor - Left Arm: 0=No drift 10 seconds
Motor - Right Le-None vs. gravity
Motor - Left Le-No drift 5 seconds
Limb Ataxia: 0-Absent
Sensation: 0-Normal
Best Language: 1-Mild aphasia
Dysarthria: 1-Mild slurring
Extinction and Inattention: 0-No abnormality
Tenecteplase Contraindications
Reasons for NON-Tx with Thrombolytics POSSIBLE Exclusions: Recent ischemic stroke within 3 months
Medications
-
Active Medications
Generic Name Dose Route Start Last Admin
Trade Name Freq PRN Reason Stop Dose Admin
Tenecteplase 23 mg/ Device 4.6 mls @ 3,312 mls/hr 01/14/24 10:26
IV 01/14/24 10:27
NOW STA
Protocol
Home Medications
�Medication �Instructions �Recorded
atorvastatin 20 mg tablet 20 mg PO QPM High Cholesterol 04/04/10
atenolol 25 mg tablet 25 mg PO QPM Blood Pressure 06/06/23
omeprazole 20 mg tablet,delayed 20 mg PO QPM Gastrointestinal Issue 06/06/23
release
aspirin 81 mg chewable tablet 81 mg PO QPM 01/06/24
(Children's Aspirin)
clopidogrel 75 mg tablet (Plavix) 75 mg PO DAILY #21 tabs 01/06/24
Vital Signs and Labs
-
Vital Signs and Labs:
Vital Signs
Temp Pulse Resp BP Pulse Ox
37.1 C 47 16 146/83 98
01/14/24 10:23 01/14/24 10:23 01/14/24 10:23 01/14/24 10:23 01/14/24 10:23
Lab Results
01/14/24 10:28
01/14/24 10:28
PT 12.9 Sec (11.4-14.6) 01/14/24 10:45
INR 0.95 01/14/24 10:45
APTT 28.0 Sec (23.4-35.0) 01/14/24 10:45
Sodium 142 mmol/L (135-145) 01/14/24 10:28
Potassium 3.9 mmol/L (3.5-5.1) 01/14/24 10:28
BUN 11 mg/dl (9-20) 01/14/24 10:28
Glucose 106 mg/dl (70-99) H 01/14/24 10:28
Calcium 9.4 mg/dl (8.4-10.2) 01/14/24 10:28
Medications
-
Medications:
Generic Name Dose Route Start Last Admin
Trade Name Bridger PRN Reason Stop Dose Admin
Sodium Chloride 1,000 mls @ 1,000 mls/hr 01/14/24 10:55 01/14/24 11:11
Nss IV 01/14/24 11:54 1,000 mls
BOLUS ONE Administration
Home Medications
-
Home Medications
atorvastatin 20 mg tablet 20 mg PO QPM High Cholesterol 04/04/10
atenolol 25 mg tablet 25 mg PO QPM Blood Pressure 06/06/23
omeprazole 20 mg tablet,delayed release 20 mg PO QPM Gastrointestinal Issue 06/06/23
aspirin 81 mg chewable tablet (Children's Aspirin) 81 mg PO QPM 01/06/24
clopidogrel 75 mg tablet (Plavix) 75 mg PO DAILY #21 tabs 01/06/24
--- NOTE | 2024-01-14 10:28 | ED.CVA ---
History of Present Illness
General
Chief Complaint: CVA/TIA Symptoms
Source: patient, spouse and ambulance crew
Exam Limitations: none
Time Seen by Provider: 01/14/24 10:25
Nursing documentation reviewed up to this point in time: agreed with
Onset of Stroke Symptoms
Onset of symptoms known: Yes
Date of onset of symptoms: 01/14/24
History of Present Illness
History of Present Illness:
78-year-old male with history as documented presents to the ER for evaluation of right-sided weakness and speech difficulties. Onset while he was at breakfast at around 9 AM and have been constant since that time. Notably was seen in this hospital
01/06/2024, had similar symptoms that resolved; was seen in consultation with neurology ultimately discharged after reassuring workup and resolution of symptoms. Discharged on aspirin and Plavix. He had a follow-up appointment after this visit in
[place] with a neurologist named Dr. Darnell; he had an MRI yesterday at [facility] (a branch of [facility]) and he is unsure the results of this. Aside from right sided weakness and speech difficulties he denies any acute change in
his vision, denies any left-sided symptoms. He denies any headache. He denies any chest pain, shortness of breath, palpitations or any other issues. He is on aspirin and Plavix no other blood thinners. Last dose of these medications was last
night he says.
Past History
Past History
ED Past Medical History: GERD and Hypercholesterolemia
ED Past Surgical History: None
Social History
Tobacco: Non-smoker
Alcohol: Occasional
Drug: None
Personal:
Living: with family
Employment: Employed
Family History
Family History: Unable to obtain
Review of Systems
Review of Systems
All Other Systems: ROS reviewed and negative except as documented in HPI and ROS
Constitutional: Denies fever
Respiratory: Denies trouble breathing
Cardiac: Denies chest pain or palpitations
ABD/GI: Denies abdominal pain, nausea or vomiting
: Denies flank pain
Musculoskeletal: Denies neck pain or back pain
Neurological: Reports weakness, numbness and other (Speech difficulties); Denies dizzy or headache
Phy Exam
Physical Exam
Physical Exam:
General: Awake, alert, oriented x3; somewhat anxious
Head: Normocephalic, atraumatic
Eyes: Conjunctiva normal, EOMI, pupils equal round and reactive to light bilaterally
Throat: Airway intact, handling secretions
Neck: Trachea midline, supple without meningismus
Lungs: Clear to auscultation bilaterally, no wheezing, rales, rhonchi
Heart: Regular rate and rhythm, no murmurs, gallops, or rubs appreciated
Abd: Soft, non distended, nontender
Neuro: Patient has right-sided facial droop, mild aphasia, no marked dysarthria, no limb ataxia; he has right hemiparesis with weakness and numbness in the right upper and lower extremity, strength is intact left upper and lower extremity
Skin: no rash
Extremities: Warm and well-perfused with equal pulses throughout
Scores
NIH Stroke Score
Level of Consciousness: 0 - Alert
LOC Questions: 0-Answers both correctly
LOC Commands: 0-Performs both correctly
Best Horizontal Gaze: 0-Normal
Visual Brown: 0=Normal, no visual loss
Facial Palsy: 1=Minor paralysis
Motor - Right Arm: 2=Partial vs. gravity
Motor - Left Arm: 0=No drift 10 seconds
Motor - Right Le-None vs. gravity
Motor - Left Le-No drift 5 seconds
Limb Ataxia: 0-Absent
Sensation: 1-Mild loss
Best Language: 1-Mild aphasia
Dysarthria: 0-Normal
Extinction and Inattention: 0-No abnormality
Total Score:: 8
Thrombolytic Contraindication
Inclusion and Exclusion criteria reviewed: Yes
Reasons for NON-Tx with Thrombolytics POSSIBLE Exclusions: Recent ischemic stroke within 3 months
Heart Failure Risk
Heart Failure Risk Score: Not Applicable
Heart Score for Chest Pain Patients
STEMI patient?: Not applicable
Withdrawal Assessment of Alcohol
Withdrawal Assessment Completed?: Not applicable
Course
Orders/Labs/Results
Orders:
Orders
01/14/24 10:22
CT HEAD STROKE ALERT W/o Cont Stat
Comment:
Reason For Exam: flacid R side
01/14/24 10:23
Electrocardiogram (*1) Urgent
Reason for Study: Chest Pain
EKG- Treatment ONCE
01/14/24 10:26
CT HEAD/NECK ANG STROKE ALERT Urgent
Comment:
Reason For Exam: right hemiparesis
Tenecteplase [Tnkase] 23 mg Syringe [Syringe Non-Pump] 0 ml IV NOW
Provider explained risk/benefits to patient &/or caregiver?: Yes
01/14/24 10:27
NEUROLOGY CONSULT Urgent
Consulting Provider: Nuris Kaufman
Was physician already notified: Yes
01/14/24 10:28
Complete Blood Count/With Diff Urgent
Comprehensive Metabolic Panel Urgent
LDL Cholesterol, Direct Urgent
Comment: ADD ON
01/14/24 10:45
PTT Urgent
Prothrombin Time Urgent
01/14/24 10:54
Clopidogrel Bisulfate [Plavix] 75 mg PO NOW STA
01/14/24 10:55
0.9% Sodium Chloride 1000 ml [Nss] 1,000 ml IV BOLUS
01/14/24 11:23
Echo 2D MMode Color/Doppler [Echo 2D MMode Color/Doppler] Routine
Reason for Study: stroke
MRI Brain [MR Brain Without Contrast] Routine
Comment:
Reason For Exam: stroke
OK for patient to be off Cardiac Monitoring for MRI: No
Recent pill cam endoscopy?: No
01/14/24 11:41
Admit/Transfer Patient As Directed
Co-Sign Provider:
Level of Care: Inpatient admission
Assign to:: Telemetry
Physician / Group: haresh albarado
Diagnosis: CVA
Reason for Telemetry: CVA/TIA
Date to Stop Telemetry: 01/17/24
Time to Stop Telemetry: 11:00
Reason for Hospitalization: CVA
Expected length of stay greater than two midnights?: Yes
ELOS- Estimated Length of Stay in days: 3
I certify the patient meets the requirements for IP care: Yes
PRN Pain Medication Management As Directed
May give lesser potent ordered pain med per pt: Yes
preference::
Protocol:: Medication orders for pain may be administered in a
manner that supports deferring to patient preference
when the pt is:
- Requesting an ordered lesser potent pain medication.
Least to most potent pain medications are defined
as: acetaminophen < NSAID < tramadol < opioids
(morphine, oxycodone, hydromorphone).
- Requesting a lesser dose of the same medication IF
ORDERED.
- Requesting a less intrusive route of administration
if both routes are prescribed by the provider (PO <
IV).
01/14/24 11:43
Code Status As Directed
Resuscitation Status: Full Code
01/14/24 12:40
Acetaminophen [Tylenol/Feverall] 650 mg RECTAL Q4HPRN PRN
Acetaminophen [Tylenol] 650 mg PO Q4HPRN PRN
01/14/24 12:40
Case Management Consult ONCE
Case Management Consult: Discharge Planning
Comment: stroke/tia
DIETARY CONSULT Routine
Reason for Consult: stroke/TIA
[place] Urgent
Activity As Directed
Activity Level: Ambulate
NIH Stroke Scale As Directed
Directions: Per protocol
Comment: every shift and with any change in condition or mental status
Neurological Checks As Directed
Frequency: q4h
Additional Instructions:: q4h x 24h upon admission to the floor, then qshift & with any change in condition
and mental status
Patient Education As Directed
Type: Stroke education packet
Comment: provide to patient and family
Pneumatic Compression Sleeves As Directed
Type: Knee high
Swallow Screening CVA/TIA ONLY As Directed
Comment: NPO until swallowing screening completed
If patient FAILS swallow screening:: NPO, Speech Therapy consult, Aspiration Precautions
If patient PASSES swallow screening, diet:: Cholesterol Lowering
Above diet order entered?: Yes- passed screening
Vital Signs As Directed
Frequency: Per unit guidelines
Ot Eval And Treat Routine
Pt Eval And Treat Routine
Activity Level: Ambulate
Speech Therapy Eval & Treat Routine
DX Deep Vein Thrombosis Video Routine
01/14/24 18:00
Aspirin Chewable [Low Strength Aspirin] 81 mg PO QPM
Atorvastatin [Lipitor] 40 mg PO QPM
Enoxaparin Sodium [Lovenox] 40 mg SC QPM
01/15/24 06:00
Cardiovascular Evaluation IN AM
01/15/24 08:00
Clopidogrel Bisulfate [Plavix] 75 mg PO DAILY
01/17/24 11:00
DC Protocol for Telemetry ONCE
Abnormal Lab Results
01/14/24
10:28
Absolute Monos (auto) 0.8 H 10^3/uL
(0.1-0.6)
Glucose 106 H mg/dl
(70-99)
Total Protein 6.1 L g/dl
(6.3-8.2)
01/14/24 10:28
01/14/24 10:28
Vital Signs
Initial and Last Documented VS:
Initial Vital Signs
Temp Pulse Resp BP Pulse Ox
37.1 C 47 16 146/83 98
01/14/24 10:23 01/14/24 10:23 01/14/24 10:23 01/14/24 10:23 01/14/24 10:23
Last Documented Vital Signs
Temp Pulse Resp BP Pulse Ox
36.4 C 44 17 152/67 98
01/14/24 12:56 01/14/24 12:56 01/14/24 12:56 01/14/24 12:56 01/14/24 12:56
MDM/Problems Addressed
Differential Diagnosis Includes:
Ischemic stroke, hemorrhagic stroke, seizure, brain mass
MDM/Problems Addressed:
78-year-old male with history as documented including recent visit with TIA presents to the emergency room roughly 45 minutes after onset of right hemiparesis and aphasia. Vitals and exam as above. Prehospital stroke alert was called and neurology
at bedside on arrival. Accu-Chek normal. Vital signs acceptable�blood pressure 140/73. Taken directly for CT head which showed no acute bleed or any other acute pathology. CTA head and neck negative. Long discussion with neurology as well as
patient and �he had an MRI as an outpatient yesterday they were initially unsure of the results. We called over to [facility] and we were able to obtain verbal report on the MRI (unable to get formal medical records expeditiously on a
weekend)�report was as follows:
Scattered acute to subacute infarcts left cerebral hemisphere and few within the right cerebral hemisphere suggestive of embolic cause. Involves left caudate head and internal capsule, no blood components. Moderate chronic small vessel disease.
MRI head and neck showed no large vessel occlusion poor visualization of the left vertebral artery secondary to arterial sclerosis, 50% stenosis of the left carotid at the bifurcation, mild proximal ICA stenosis.
After discussion with neurology and family at bedside decision made to forego treatment with tenecteplase given documented recent stroke, risk felt to outweigh benefit. Fortunately patient's symptoms seem to be improving slightly even since he has
arrived to the emergency room. Neurology recommending treatment with aspirin and Plavix. Admission for continued evaluation. Case discussed with hospitalist for admission.
Chronic conditions affecting care:
Diabetes, hypertension, hyperlipidemia, TIA history
Acute Exacerbation and/or Progression of Chronic Illness:
Acutely hypertensive
Acute Exacerbation and/or Progression of Chronic Illness: HTN
*Radiology
Radiology exam reviewed: preliminary read by ED provider and radiology read reviewed
*Pulse Oximetry
Patient hypoxic: no
*EKG
Interpreted by ED Provider?: Yes
Heart Rate: 46
Rate: bradycardiac
Rhythm: sinus
QRS Pattern: wide non-specific
*Critical Care Note
Total Time (30-74mins, 75-104mins- exclusive of procedures): Not Applicable
Data Reviewed
Review of Other/Old Records Reveals: Labs, Records and Radiology Studies
Source: patient, spouse and ambulance crew
Patient Management
Discussion with other providers: Hospitalist (Discussed with hospitalist) and Manager Lan (Discussed with neurology)
Escalation/DeEscalation of care consider admission/obs:
Admission indicated
ED Attending Note
-
Portions of this chart may have been created with voice recognition software.� Occasional wrong word or��sound alike� substitutions may have occurred due to the inherent limitations of voice recognition software.
Discharge Plan
Departure
Patient Disposition: Admit
Date of Disposition: 01/14/24
Time of Disposition: 11:01
Admit to doctor: Michael
Presentation/result/management discussed w/ accepting MD/DO: Hospitalist
Discharge Problem:
Acute CVA (cerebrovascular accident)
Interventions
Interventions:
*Risk Screen - Suicide Last Done: 01/14/24 10:23
*General Assessment Last Done: 01/14/24 10:23
*Neglect/Abuse Screening Last Done: 01/14/24 10:23
*ED COVID-19 Vaccine History Last Done: 01/14/24 14:19
*Nursing Disposition Last Done: 01/14/24 12:36
ED- Pulmonary Assessment Last Done: 01/14/24 11:00
ED- Neurological Assessment Last Done: 01/14/24 10:50
ED- Cardiac Assessment Last Done: 01/14/24 11:00
ED Swallowing Screen Last Done: 01/14/24 11:05
Discharge Date and Time
Discharge Date/Time: 01/14/24 12:36
[2024-01-14 10:49] LABS: % Basophils 1.2 % (0-2); % Eosinophils 3.4 % (0-6); % Immature Granulocytes 0.5 % (0-0.5); % Lymphocytes 27.3 % (20.5-51.1); % Monocytes 9.3 % (1.7-9.3); % Neutrophils 58.3 % (42.2-75.2); Absolute Basophils 0.1 10^3/uL (0-0.2); Absolute Eosinophils 0.3 10^3/uL (0-0.7); Absolute Lymphocytes 2.3 10^3/uL (1.2-3.4); Absolute Monocytes 0.8 10^3/uL (0.1-0.6); Hematocrit 44.1 % (39.0-52.0); Hemoglobin 14.9 g/dL (13.0-18.0); Mean Corp Hgb Conc. 33.8 g/dL (33.0-37.0); Mean Corpuscular Hgb 29.9 pg (27.0-31.0); Mean Corpuscular Volume 88.4 fL (80.0-94.0); Mean Platelet Volume 10.2 fL (7.4-10.4); Nucleated Red Blood Cells % 0 % (-); Platelet Count 219 10^3/uL (130-400); Red Blood Cell Count 4.99 10^6/uL (4.70-6.10); Red Cell Dist. Width 13.8 % (11.5-14.5); White Blood Cell Count 8.6 10^3/uL (4.8-10.8)
--- NOTE | 2024-01-14 10:49 | EDRN ---
Dr. Bush and neuro at bedside, not doing TNK due to MRI report just received that was preformed last night.
[2024-01-14 11:00] LABS: ALT (SGPT) 14 U/L (0-50); AST (SGOT) 19 U/L (17-59); Albumin 3.9 g/dl (3.5-5.0); Alkaline Phosphatase 77 U/L (38-126); Blood Urea Nitrogen 11 mg/dl (9-20); Calcium 9.4 mg/dl (8.4-10.2); Carbon Dioxide 28 mmol/L (22-30); Chloride 106 mmol/L (98-107); Glucose 106 mg/dl (70-99); Potassium 3.9 mmol/L (3.5-5.1); Sodium 142 mmol/L (135-145); Total Bilirubin 0.7 mg/dl (0.2-1.3); Total Protein 6.1 g/dl (6.3-8.2); eGFR > 60.00
[2024-01-14 11:04] LABS: INR 0.95; PT 12.9 Sec (11.4-14.6)
[2024-01-14] MEDS: PLAVIX 75 MG PO (11:10)
[2024-01-14] MEDS: NSS 1000 IV (11:11)
--- NOTE | 2024-01-14 11:11 | HPS.HSE ---
Family Physician
-
Family Physician: Luis Perkins
Chief Complaint
-
Right-sided weakness
History of Present Illness
78-year-old male with a past medical history of former heavy drinking, gait imbalance, COPD, Paget's disease, lumbar spinal stenosis, and AAA status post repair who presents with acute right-sided hemiparesis around 9 AM today. Patient was seen in
conjunction with neurology in the ED as a stroke alert. He does not qualify for tPA secondary to having an MRI yesterday which shows acute CVA. Patient had his MRI performed at [facility] in [place], which showed acute stroke. Because of
this, he is out of the window for tPA. Of note, patient was seen for transient right hemiparesis lasting for less than 1 hour on 01/06/2024 at [facility]. Currently, he cannot move his right arm or his right leg. He denies headache,
denies dysphagia. He has aphasia and dysarthria. No fever, no vomiting. No chest pain, no shortness of breath.
Medical History
Past Medical History
Past Medical History: Reports Other
Additional Past Medical History:
Moderate COPD, anxiety, history of Paget's disease, ED, hypercholesterolemia, GERD, rotator cuff tear, colonic polyps, diverticulosis, hiatal hernia, lumbar spinal stenosis, AAA, history of skin cancer, personal history of COVID-19, postnasal drip,
gait imbalance, right ankle tendon tear
Past Surgical History: Reports Other
Additional Past Surgical History:
AAA repair, cervical spinal surgery (August 2017), laparoscopic appendectomy with partial cecectomy, right�TKA, L3-L5 fusion, bilateral hip replacement, bilateral shoulder arthroscopy
Social History
Tobacco: Smoker
Alcohol: Occasional (Used to be a heavy drinker, but has cut back since September 2023)
Drug: None
Personal:
Living: With Family
Family History
Family History: Not pertinent and Other (CAD (Mother) and Cancer (Father: Bone cancer))
Allergies / Home Medications
Allergies reflects when Allergies were last updated in [email or web address].
Home Medications with original date entered in [email or web address]
Allergy/Medication List:
Allergies
Allergy/AdvReac Type Severity Reaction Status Date / Time
sulfamethoxazole Allergy racing Verified 10/08/23 19:33
[From Bactrim] heart rate
trimethoprim [From Bactrim] Allergy racing Verified 10/08/23 19:33
heart rate
Home Medications Table - record
�Medication �Instructions �Recorded �Confirmed
atenolol 25 mg tablet 25 mg PO QPM Blood Pressure 06/06/23 01/14/24
omeprazole 20 mg tablet,delayed 20 mg PO QPM Gastrointestinal Issue 06/06/23 01/14/24
release
aspirin 81 mg chewable tablet 81 mg PO QPM 01/06/24 01/14/24
(Children's Aspirin)
atorvastatin 40 mg tablet 40 mg PO QPM 01/14/24 01/14/24
clopidogrel 75 mg tablet (Plavix) 75 mg PO QPM 01/14/24 01/14/24
Review of Systems
-
A 12 point ROS was completed and negative except as noted: Yes
Physical Exam
Vital Signs
Vital Signs
Temp Pulse Resp BP Pulse Ox
98.7 F 47 16 146/83 98
01/14/24 10:23 01/14/24 10:23 01/14/24 10:23 01/14/24 10:23 01/14/24 10:23
Physical Exam
General: No Apparent Distress
HEENT: NormoCephalic, Anicteric and Moist mucous membranes
Respiratory: Clear
Cardiac: S1/S2 and Regular Rhythm
GI: Soft, Non Tender, Non Distended and Normal Bowel Sounds
Musculoskeletal: No Clubbing, No Cyanosis and No Edema
Skin: Warm and Dry
Neuro: Awake, Alert, Oriented and Other (Complete right-sided hemiparesis noted)
Laboratory Results
-
01/14/24 10:28
01/14/24 10:28
Laboratory Results
PT 12.9 Sec (11.4-14.6) 01/14/24 10:45
INR 0.95 01/14/24 10:45
APTT 28.0 Sec (23.4-35.0) 01/14/24 10:45
Total Bilirubin 0.7 mg/dl (0.2-1.3) 01/14/24 10:28
AST 19 U/L (17-59) 01/14/24 10:28
ALT 14 U/L (0-50) 01/14/24 10:28
Alkaline Phosphatase 77 U/L (38-126) 01/14/24 10:28
Impression/Plan
-
HPI: 78-year-old male with a past medical history of former heavy drinking, gait imbalance, COPD, Paget's disease, lumbar spinal stenosis, and AAA status post repair who presents with acute right-sided hemiparesis around 9 AM today. Patient was
seen in conjunction with neurology in the ED as a stroke alert. He does not qualify for tPA secondary to having an MRI yesterday which shows acute CVA. Patient had his MRI performed at [facility] in [place], which showed acute stroke.
Because of this, he is out of the window for tPA. Of note, patient was seen for transient right hemiparesis lasting for less than 1 hour on 01/06/2024 at [facility]. Currently, he cannot move his right arm or his right leg. He denies
headache, denies dysphagia. He has aphasia and dysarthria. No fever, no vomiting. No chest pain, no shortness of breath.
#Acute right hemiparesis
#Acute left lacunar syndrome
#Acute/subacute multifocal basal ganglia infarcts seen on MRI 01/12
Patient is on aspirin 81 mg daily and Plavix 75 mg daily prior to admission
CT head�no acute infarcts
CTA head/neck-No significant vascular occlusion, aneurysm or dissection.
Neurology recommends aspirin 81 mg daily, check brain MRI
Neurology recommends waiting for brain MRI prior to starting Plavix
Check echocardiogram, monitor in telemetry
Continue home atorvastatin 40 mg at bedtime, check fasting lipid profile, check hemoglobin A1c, PT/OT/SPL
#Essential hypertension
Hold atenolol today, can resume tomorrow
#Chronic gait dysfunction
PT
#COPD
Stable
#Former heavy alcohol use
Patient reports cutting back since September 2023, still drinks occasionally
#GERD
Continue PPI
#History of AAA status post repair
DVT prophylaxis�subcu Lovenox
Full code
Updated at bedside 01/13
Total time spent to see the patient on the floor, examine the patient, review data and lab results, discuss treatment plan with patient, nursing staff around 77 minutes.
--- NOTE | 2024-01-14 13:00 | PTCARENOTE ---
Received Pt from ED on stretcher. Assist x3 to transfer from stretcher to bed. [facility] [place] [facility]. AAOx3 able to make needs known. Oriented to room and use of call rodrigues. at bedside. Denies pain/discomfort. Call rodrigues within reach.
[2024-01-14 13:08] LABS: LDL Cholesterol, Direct 65 mg/dl
--- NOTE | 2024-01-14 14:40 | PTOTSP ---
Speech Therapy
Presentations: Patient was admitted with right facial drooping which appears to have resolved as no overt facial droop is noted. patient was oriented and willing to participate. patient's speech appeared to be dysarthric characterized by imprecise
consonant production, slow rate of speech, and decreased volume. Of note, patient's communication was intelligible. In addition, patient reported having word finding difficulty (expressive aphasia) which did not impede on his communication in
conversation.
WEAVING LOOM OPERATOR assessed patient's speech and language with the use of object naming tasks in which patient idenified 10/10 items and their functions without any overt difficulty.
Swallowing Function WEAVING LOOM OPERATOR observed patient with several bites of regular consistency solids and sips (straw) of thin liquids in which patient appeared to tolerate as he did not exhibit any overt clinical s/sx of aspiration or difficulty with
mastication/ manipulation. Patient denied any dysphagia complaints.
Recommendations:
1) regular consistency solids and thin liquids
2) assistance with PO as patient is demonstrating right sided weakness and he is right handed
3) consideration of further speech and language assessment
4) medications as tolerated
5) aspiration precautions
6) reflux precautions
Plan: WEAVING LOOM OPERATOR will continue to follow; pending hospitalization.
[2024-01-14] MEDS: LOW STRENGTH ASPIRIN 81 MG PO (15:35)
[2024-01-14] MEDS: PROTONIX 40 MG PO (17:34)
[2024-01-14] MEDS: LIPITOR 40 MG PO (17:34)
[2024-01-14] MEDS: LOVENOX 40 MG SC (17:35)
[2024-01-15] VITALS (8 sets, daily range): BP systolic 131–163; BP diastolic 60–74; PULSE 52–53; O2SAT 92–93
[2024-01-15 06:42] LABS: HDL Cholesterol 27 mg/dl; LDL Cholesterol, Calculated 54 mg/dl; Total Cholesterol 108 mg/dl (50-199); Triglyceride 138 mg/dl (10-149); Very Low Density Lipoprotein 27 mg/dl (0-30)
--- NOTE | 2024-01-15 08:38 | W.PN.HOSP.TC ---
Today's Communication/Plan
-
For echo tomorrow
Assessment / Plan
Assessment / Plan
HPI: 78-year-old male with a past medical history of former heavy drinking, gait imbalance, COPD, Paget's disease, lumbar spinal stenosis, and AAA status post repair who presents with acute right-sided hemiparesis around 9 AM today. Patient was
seen in conjunction with neurology in the ED as a stroke alert. He does not qualify for tPA secondary to having an MRI yesterday which shows acute CVA. Patient had his MRI performed at [facility] in [place], which showed acute stroke.
Because of this, he is out of the window for tPA. Of note, patient was seen for transient right hemiparesis lasting for less than 1 hour on 01/06/2024 at [facility]. Currently, he cannot move his right arm or his right leg. He denies
headache, denies dysphagia. He has aphasia and dysarthria. No fever, no vomiting. No chest pain, no shortness of breath.
#Acute right hemiparesis
#Acute left lacunar syndrome
#Acute/subacute multifocal basal ganglia infarcts seen on MRI 01/12
Patient is on aspirin 81 mg daily and Plavix 75 mg daily prior to admission
CT head�no acute infarcts. CTA head/neck-No significant vascular occlusion, aneurysm or dissection
Brain MRI confirms large acute/subacute infarction in the left centrum semiovale, additional bilateral nonhemorrhagic acute/subacute cerebral infarcts, findings may reflect embolic etiology
Neurology recommends aspirin 81 mg daily, no plavix 2/2 to size of stroke and NIH > 5
Check echocardiogram, cardiology consulted for ORACIO in case TTE is negative
Continue home atorvastatin 40 mg at bedtime, LDL 65, check hemoglobin A1c, PT/OT/SPL
#Essential hypertension
Resume atenolol today
#Chronic gait dysfunction
PT
#COPD
Stable
#Former heavy alcohol use
Patient reports cutting back since September 2023, still drinks occasionally
#GERD
Continue PPI
#History of AAA status post repair
DVT prophylaxis�subcu Lovenox
Full code
Updated at bedside 01/14
Total time spent to see the patient on the floor, examine the patient, review data and lab results, discuss treatment plan with patient, nursing staff around 50 minutes.
Physical Exam
General: No acute distress
HEENT: Normocephalic, Atraumatic, EOMI, MMM
Respiratory: Clear to Auscultation bilaterally
Cardiac: Normal S1/S2, Regular Rate and Rhythm
GI: Soft, Nontender, Nondistended, Normal Bowel Sounds
Extremities: No Clubbing, Cyanosis, or Edema
Neuro:
Complete right-sided hemiparalysis, mild expressive aphasia/dysarthria
Psych: Calm, Cooperative
Derm: No Visible lesions
Anticipated Discharge: > 48 hours
Subjective/Interval History
-
Date of Service: January 15, 2024
Patient continues to have right-sided hemiparesis, unchanged from admission. He is also having intermittent confusion. No dysphagia. No fever, no vomiting.
Objective Data
-
Vital Signs:
Vital Signs
Temp Pulse Resp BP Pulse Ox
98 F 55 16 149/67 93
01/15/24 07:00 01/15/24 07:00 01/15/24 07:00 01/15/24 07:00 01/15/24 07:00
I&O
01/14/24 01/15/24 01/16/24
06:59 06:59 06:59
Intake Total 240 / 240
Output Total 1050 / 1050
Balance -810 / -810
[2024-01-15] MEDS: LOW STRENGTH ASPIRIN 81 MG PO (08:39)
--- NOTE | 2024-01-15 10:13 | W.PN.NEURO.1 ---
Today's Communication / Plan
-
.
Subjective/Objective
Subjective Data
Date of Service: January 15, 2024
Neurology Follow Up Note.
24h events: intermittently hypertensive up to 163/61, afebrile.
Mr. Espinosa endorses stable right arm>leg weakness. No change in speech, sensation, headache.
Brain MRI is pending.
CT head(01/14/2024)�no acute infarcts
CTA head/neck(01/14/2024)-no evidence of significant vascular occlusion, aneurysm or dissection.
LDL 65
PMH: Paget's Disease, PAD, HTN, DLP, AAA, Primary insomnia , COPD, GERD, diverticulosis, Vitamin B12 deficiency
PSH: R iliofemoral endarterectomy and FEVAR(05/2023), BL, R TKA, L3-L5 fusion, YARELY, LS fusion, b/l shoulder arthroscopy, lap appendectomy with partial cecectomy
SH: , non-smoker.
All: Sulfas.
ROS:Constitutional: Negative. Negative for chills, fever and unexpected weight change.
HENT: impaired hearing
Eyes: Negative. Negative for photophobia, pain and visual disturbance.
Respiratory: Negative for cough, choking and shortness of breath.
Cardiovascular: Negative for chest pain, palpitations and leg swelling.
Gastrointestinal: Negative for abdominal pain and vomiting.
Endocrine: Negative. Negative for cold intolerance.
Genitourinary: Negative for dysuria, flank pain and urgency.
Musculoskeletal: positive for intermittent neck pain
Skin: Negative for rash.
Allergic/Immunologic: Negative. Negative for immunocompromised state.
Neurological: positive for right sided weakness
General: Well developed. In no acute distress.
Cardio: Regular rate and rhythm. Extremities are without cyanosis or edema.
Neuro:
Mental Status: Alert, oriented to person, place, and date.�Good fund of knowledge. Follows complex requests across the midline.� Comprehension, naming, and repetition intact.�
Cranial Nerves: Pupils are equally round and reactive to light.� EOMs full.� Visual vazquez full to confrontation.� No ptosis.� No nystagmus.� V1-V3 intact to light touch and pinprick bilaterally, symmetric.� Face symmetric.� Impaired hearing AU.�
The palate elevated well.� SCMs and traps 5/5.� Tongue midline.� No dysarthria.
Motor:������� R arm-plegic, right leg-tipple flexion
Reflexes:������������ 3+ throughout the upper extremities and knees.� Plantar responses flexor bilaterally.
Sensory:���� Normal LT
Coordination: No dysmetria or tremor on the L
Gait:���������� unable
Assessment and Plan:
I. Acute left pure motor lacunar syndrome
II. Acute/subacute multifocal infarcts.
III. PAD
-Continue Telemetry monitoring.
-Continue Telemetry monitoring.
-Restart antihypertensive medications if BP>140/90 mmHg in 24 to 48 hours after stroke symtpoms onset
-TTE with bubble studies
-Continue aspirin 81 mg once a day. DAPT is not indicated given NIH stroke score.
-Lipitor 40 mg QHS.
-Brain MRI without lupe
-Please obtain a copy of brain MRI from 01/13/24 from [facility]
-PT
-DVT prophylaxis.
-Case was discussed with patient's spouse.
I personally reviewed all radiology and labs along with past medical records pertinent to current medical problems. Total time spent in patient care is 40 minutes.
Thank you for allowing us to participate in the care of this patient. We will continue to follow. Please do not hesitate to contact us with any questions or concern
Objective Data
Vital Signs
Temp Pulse Resp BP Pulse Ox
36.6 C 55 16 149/67 93
01/15/24 07:00 01/15/24 07:00 01/15/24 07:00 01/15/24 07:00 01/15/24 07:00
Lab Results
01/14/24 10:28
01/14/24 10:28
PT 12.9 Sec (11.4-14.6) 01/14/24 10:45
INR 0.95 01/14/24 10:45
APTT 28.0 Sec (23.4-35.0) 01/14/24 10:45
Sodium 142 mmol/L (135-145) 01/14/24 10:28
Potassium 3.9 mmol/L (3.5-5.1) 01/14/24 10:28
BUN 11 mg/dl (9-20) 01/14/24 10:28
Glucose 106 mg/dl (70-99) H 01/14/24 10:28
Calcium 9.4 mg/dl (8.4-10.2) 01/14/24 10:28
LDL Cholesterol Direct Cancelled 01/14/24 11:23
LDL Cholesterol, Calc 54 mg/dl 01/15/24 05:05
Patient Allergies
sulfamethoxazole [From Bactrim] Allergy (Verified 10/08/23 19:33)
racing heart rate
trimethoprim [From Bactrim] Allergy (Verified 10/08/23 19:33)
racing heart rate
Vital Signs and Labs
-
Vital Signs and Labs:
Vital Signs
Temp Pulse Resp BP Pulse Ox
36.6 C 55 16 149/67 93
01/15/24 07:00 01/15/24 07:00 01/15/24 07:00 01/15/24 07:00 01/15/24 07:00
Lab Results
01/14/24 10:28
01/14/24 10:28
PT 12.9 Sec (11.4-14.6) 01/14/24 10:45
INR 0.95 01/14/24 10:45
APTT 28.0 Sec (23.4-35.0) 01/14/24 10:45
Sodium 142 mmol/L (135-145) 01/14/24 10:28
Potassium 3.9 mmol/L (3.5-5.1) 01/14/24 10:28
BUN 11 mg/dl (9-20) 01/14/24 10:28
Glucose 106 mg/dl (70-99) H 01/14/24 10:28
Calcium 9.4 mg/dl (8.4-10.2) 01/14/24 10:28
LDL Cholesterol Direct Cancelled 01/14/24 11:23
LDL Cholesterol, Calc 54 mg/dl 01/15/24 05:05
Medications
-
Medications:
Generic Name Dose Route Start Last Admin
Trade Name Freq PRN Reason Stop Dose Admin
Acetaminophen 650 mg 01/14/24 12:40
Acetaminophen 650 Mg Rectal Suppository RECTAL 02/11/24 12:39
Q4HPRN PRN
GAMEZ, mild pain, or temp >100.4F
Acetaminophen 650 mg 01/14/24 12:40
Acetaminophen 325 Mg Tablet PO 02/11/24 12:39
Q4HPRN PRN
GAMEZ, mild pain, or temp >100.4F
Aspirin 81 mg 01/14/24 14:00 01/15/24 08:39
Aspirin 81 Mg Chewable Tablet PO 02/11/24 13:59 81 mg
DAILY ELMIRA Administration
Atenolol 25 mg 01/15/24 18:00
Atenolol 25 Mg Tablet PO 02/12/24 17:59
QPM ELMIRA
Atorvastatin Calcium 40 mg 01/15/24 18:00
Atorvastatin (Lipitor) 40 Mg Tablet PO 02/12/24 17:59
QPM ELMIRA
Enoxaparin Sodium 40 mg 01/14/24 18:00 01/14/24 17:35
Enoxaparin Sodium 40 Mg/0.4 Ml Syringe SC 02/11/24 17:59 40 mg
QPM ELMIRA Administration
Ondansetron HCl 4 mg 01/15/24 08:39
Ondansetron 4 Mg/2 Ml Vial IV 02/12/24 08:38
Q6HPRN PRN
NAUSEA/VOMITING
Pantoprazole Sodium 40 mg 01/14/24 18:00 01/14/24 17:34
Pantoprazole 40 Mg Delayed Release Tablet PO 02/11/24 17:59 40 mg
QPM ELMIRA Administration
Polyethylene Glycol 17 grams 01/15/24 11:00
Polyethylene Glycol Powder 17 Grams Packet PO 02/12/24 10:59
BID ELMIRA
Sodium Chloride 0 flush 01/14/24 14:00
Sodium Chloride 0.9% (Flush) Syringe IV 02/11/24 13:59
PER PROTOCOL ELMIRA
Home Medications
-
Home Medications
atenolol 25 mg tablet 25 mg PO QPM Blood Pressure 06/06/23
omeprazole 20 mg tablet,delayed release 20 mg PO QPM Gastrointestinal Issue 06/06/23
aspirin 81 mg chewable tablet (Children's Aspirin) 81 mg PO QPM Blood Clot Prevention/Tx 01/06/24
atorvastatin 40 mg tablet 40 mg PO QPM High Cholesterol 01/14/24
clopidogrel 75 mg tablet (Plavix) 75 mg PO QPM Blood Clot Prevention/Tx 01/14/24
[2024-01-15] MEDS: MIRALAX 17 GRAMS PO ×2 (10:49→20:24)
[2024-01-15 18:14] LABS: % Eosinophils 1.5 % (0-6); % Immature Granulocytes 0.4 % (0-0.5); % Lymphocytes 18.7 % (20.5-51.1); % Monocytes 10.2 % (1.7-9.3); % Neutrophils 68.2 % (42.2-75.2); Absolute Basophils 0.1 10^3/uL (0-0.2); Absolute Eosinophils 0.2 10^3/uL (0-0.7); Absolute Lymphocytes 1.9 10^3/uL (1.2-3.4); Absolute Monocytes 1.1 10^3/uL (0.1-0.6); Absolute Neutrophils 7.1 10^3/uL (1.4-6.5); Hematocrit 42.7 % (39.0-52.0); Hemoglobin 14.3 g/dL (13.0-18.0); Mean Corp Hgb Conc. 33.5 g/dL (33.0-37.0); Mean Corpuscular Hgb 30.2 pg (27.0-31.0); Mean Corpuscular Volume 90.1 fL (80.0-94.0); Nucleated Red Blood Cells % 0 % (-); Red Blood Cell Count 4.74 10^6/uL (4.70-6.10); Red Cell Dist. Width 13.6 % (11.5-14.5); White Blood Cell Count 10.3 10^3/uL (4.8-10.8)
[2024-01-15 18:25] LABS: ALT (SGPT) 17 U/L (0-50); AST (SGOT) 23 U/L (17-59); Alkaline Phosphatase 79 U/L (38-126); Blood Urea Nitrogen 10 mg/dl (9-20); Calcium 9.3 mg/dl (8.4-10.2); Carbon Dioxide 25 mmol/L (22-30); Chloride 105 mmol/L (98-107); Estimated Creatinine Clearance 91 ml/min; Glucose 94 mg/dl (70-99); Potassium 4.4 mmol/L (3.5-5.1); Sodium 139 mmol/L (135-145); Total Bilirubin 0.8 mg/dl (0.2-1.3); eGFR > 60.00
--- NOTE | 2024-01-15 18:30 | PTCARENOTE ---
of patient stated that she feels the patient is more confused than he normally is. The was noted to be very anxious about his confusion. MD and neurology notified via TT regarding 's concerns about the patients confusion. NIH done and
continues with a score of 8 for R sided weakness. CT of head ordered and Pt sent down shortly after order put in. Neurologist called 's cell phone to explain that the area in the stroke occurred, it is common to have confusion. Pt checked
frequently throughout shift. at bedside. Call rodrigues within reach.
[2024-01-15] MEDS: PROTONIX 40 MG PO (18:41)
[2024-01-15] MEDS: LOVENOX 40 MG SC (18:42)
[2024-01-15] MEDS: LIPITOR 40 MG PO (18:42)
[2024-01-15] MEDS: TENORMIN 25 MG PO (18:43)
[2024-01-15 18:45] LABS: Mean Platelet Volume 10.2 fL (7.4-10.4); Platelet Count 217 10^3/uL (130-400)
[2024-01-15 23:37] LABS: Urine Albumin Negative (Neg - Trace); Urine Bilirubin Negative (Negative); Urine Character Clear (Clear); Urine Color Yellow; Urine Glucose Negative (Negative); Urine Ketone Negative (Negative); Urine Leukocyte Negative (Negative); Urine Nitrite Negative (Negative); Urine Occult Blood Negative (Negative); Urine Specific Gravity 1.015 (<1.030); Urine Urobilinogen Negative (Neg - 1+); Urine pH 6.5 (5.0-9.0)
[2024-01-16] VITALS (7 sets, daily range): BP systolic 118–155; BP diastolic 50–75; PULSE 57
--- NOTE | 2024-01-16 07:23 | CON.CAR ---
Addendum entered and electronically signed by Joe Cohen MD 01/16/24 10:32:
78-year-old man with history of abdominal aortic aneurysm repair in 2003, alcohol use, recurrent neurologic events and recent MRI in [facility] showing multifocal acute and subacute infarcts. initial transient neuro eventAugust 2023. Had
negative carotid CTA at [facility] recently, MRI at [facility] few days ago showed multiple infarcts
PMH: Hypertension, hyperlipidemia, COPD
PSH: Endovascular abdominal aortic aneurysm repair 2023, orthopedic procedures
Social: Ex-smoker, daily alcohol use,
FH: Noncontributory
Allergies: Sulfa
Outpatient meds: Reviewed
155/62, pulse 48, respiratory rate 18, afebrile, sats 96%, somewhat sedated after transesophageal echo and Linq placement, head neck exam unremarkable, lungs are clear, regular rate and rhythm, bradycardic, no obvious murmurs, abdomen obese, dense
right hemiparesis, speech more or less intact, appears relatively due for given situation
ECG marked sinus bradycardia, nonspecific intraventricular conduction delay
Normal CBC, normal CMP,
Impression:
CVA, with dense right hemiparesis high suspicion for cardioembolic related to paroxysmal atrial fibrillation
History of AAA repair
Hypertension
Hyperlipidemia
Alcohol use
COPD
Plan:
Continue to monitor, LINQ in place
Decrease atenolol to 12.5 mg daily
Proceed with rehab/placement
Original Note:
Consultation
Consultation Request
Date/Time Consultation Requested: 01/15/24 at 1419
Date/Time Consultation Performed: 01/16/24 at 0733
Requesting Provider: Dr. Mckinnon
Performing Provider: Dr. CHRIS Cohen
Reason for Consultation: Embolic CVA on MRI brain
Medical History
-
History of Present Illness:
Patient came to ER on Tuesday with new right hemiparesis and was admitted with possible stroke and cardiology is now consulted for ORACIO and possible Linq placement. Patient was seen in ER 09/2023 with slurred speech and it was unclear at that
time if it was due to alcohol or a neurologic event, but at that time the patient refused any further workup and returned home. Patient was seen in ER again on 01/06/2024 this time with a right-sided facial droop and right upper extremity
weakness. CT of the head in the ER was unremarkable and he was diagnosed with a TIA and discharged home on aspirin and Plavix. The patient attempted to follow-up with neurology locally but the wait for an appointment time was too long and so he
saw a neurologist at [facility] on recommendation of a friend and subsequently was ordered an MRI which was performed this past Tuesday. In the meantime patient came to ER on Tuesday with new right hemiparesis and slurred speech. In the ER they
were able to get a copy of the MRI report which showed multiple areas of stroke on the right and left concerning for embolic phenomenon. The patient was admitted. His aspirin was continued, but Plavix was stopped. He was not felt to be a
candidate for lytic therapy due to resolving symptoms in the ER and the evidence of the acute/subacute strokes on the MRI from [facility] on 01/13/2024. Cardiology has been consulted now for evaluation by ORACIO to look for cardiac source of embolus.
The patient denies any history of palpitations. No previous outpatient monitoring, but telemetry thus far this admission without evidence of A-fib.
PMH:
Acute/subacute multifocal infarcts by outpatient MRI at [facility] 01/13/24
HTN
Hyperlipidemia
COPD
ETOH use disorder
s/p FEVAR (AAA repair) 05/2023
Past Medical History
Past Medical History: Other (in HPI)
Past Surgical History: Orthopedic and Other (FEVAR 05/2023)
Social History
Tobacco: Former Smoker
Alcohol: Daily
Drug: None
Personal:
Living: With Family
Family History
Family History: CAD and Cancer
Allergies / Home Medications
Allergy/AdvReac Type Severity Reaction Status Date / Time
sulfamethoxazole Allergy racing Verified 10/08/23 19:33
[From Bactrim] heart rate
trimethoprim [From Bactrim] Allergy racing Verified 10/08/23 19:33
heart rate
�Medication �Instructions �Recorded �Confirmed �Type
atenolol 25 mg tablet 25 mg PO QPM Blood Pressure 06/06/23 01/14/24 History
omeprazole 20 mg tablet,delayed 20 mg PO QPM Gastrointestinal Issue 06/06/23 01/14/24 History
release
aspirin 81 mg chewable tablet 81 mg PO QPM Blood Clot 01/06/24 01/14/24 History
(Children's Aspirin) Prevention/Tx
atorvastatin 40 mg tablet 40 mg PO QPM High Cholesterol 01/14/24 01/14/24 History
clopidogrel 75 mg tablet (Plavix) 75 mg PO QPM Blood Clot 01/14/24 01/14/24 History
Prevention/Tx
Review of Systems
-
History Source: Patient and Family (tried to call his )
All other systems: Negative unless noted
Physical Exam
Vital Signs
Temp Pulse Resp BP Pulse Ox
97.8 F 58 18 134/50 96
01/16/24 03:10 01/16/24 03:10 01/16/24 03:10 01/16/24 03:10 01/16/24 03:10
GEN: NAD. AAOx3, normal speech
HEENT: EOMI, MMM
LUNGS: CTA B/L, no wheezes or rales
CV: SR on tele. Reg, S1/S2, no murmur
ABD: soft, BS+, NT, ND
EXT: No clubbing, cyanosis, lesions or edema B/L
NEURO: RUE and RLE weakness, involuntary movements RLE, cannot move RUE.
SKIN: No rash
Lab Results
01/15/24 18:00
01/15/24 18:00
Impression / Plan
-
PCP: Dr. Perkins
Cardiology: Dr. Chavez
Impression:
Admitted with acute right hemiparesis 01/14/24
Acute left pure motor lacunar syndrome
Acute/subacute multifocal infarcts by outpatient MRI at [facility] 01/13/24
HTN
Hyperlipidemia
COPD
ETOH use disorder
s/p FEVAR (AAA repair) 05/2023
Echo 04/18/2023: EF 60 to 65%, normal diastolic function, mildly sclerotic aortic valve with normal leaflet excursion and no regurgitation
Plan:
-Patient came to ER on Tuesday with new right hemiparesis and was admitted with possible stroke and cardiology is now consulted for ORACIO and possible Linq placement. Patient was seen in ER 09/2023 with slurred speech and it was unclear at that
time if it was due to alcohol or a neurologic event, but at that time the patient refused any further workup and returned home. Patient was seen in ER again on 01/06/2024 this time with a right-sided facial droop and right upper extremity
weakness. CT of the head in the ER was unremarkable and he was diagnosed with a TIA and discharged home on aspirin and Plavix. The patient attempted to follow-up with neurology locally but the wait for an appointment time was too long and so he
saw a neurologist at [facility] on recommendation of a friend and subsequently was ordered an MRI which was performed this past Tuesday. In the meantime patient came to ER on Tuesday with new right hemiparesis and slurred speech. In the ER they
were able to get a copy of the MRI report which showed multiple areas of stroke on the right and left concerning for embolic phenomenon. The patient was admitted. His aspirin was continued, but Plavix was stopped. He was not felt to be a
candidate for lytic therapy due to resolving symptoms in the ER and the evidence of the acute/subacute strokes on the MRI from [facility] on 01/13/2024. Cardiology has been consulted now for evaluation by ORACIO to look for cardiac source of embolus.
The patient denies any history of palpitations. No previous outpatient monitoring, but telemetry thus far this admission without evidence of A-fib.
-ECG from ER visit 01/06/2024 and also on admission 01/14/2024 reviewed by me and shows sinus rhythm. There was no ECG performed on 09/2023 in ER and this may have been because patient was refusing much of the recommended interventions at that
time. Regardless he does not appear to have any Afib on tele.
-Described to patient's for the ORACIO procedure and the patient is agreeable.
-Talked with patient about the possibility of atrial arrhythmia being a source of his stroke. We talked about monitoring versus placing a Linq monitor.
-We talked about the differences between antiplatelet therapy and oral anticoagulation. Patient cannot think of an obvious contraindication to OAC and would be agreeable if recommended.
-BP has been on the higher side due to permissive hypertension following CVA. His usual outpatient dose of atenolol 25 mg at bedtime was restarted 01/15/24 PM. Continue to follow BP and if necessary add a second agent, HR in the low 50s.
-LDL 65 and outpatient dose of atorvastatin has been increased to 40 mg daily
[2024-01-16] MEDS: LOW STRENGTH ASPIRIN 81 MG PO (07:58)
--- NOTE | 2024-01-16 08:02 | W.PN.NEURO.1 ---
Today's Communication / Plan
-
Provide medical educational materials
TTE with bubble studies, appreciate cardiology consultation for consideration of ORACIO
Continue aspirin 81 mg once a day. DAPT is not indicated given NIH stroke score.
Continue at home atorvastatin 40 mg QHS based on LDL less than 70
Requesting copy of brain MRI from 01/13/24 from [facility]
Neuro Assessment/Plan
Assessment
I. Acute left pure motor lacunar syndrome
II. Acute/subacute multifocal infarcts.
Repeated MRI of the brain performed 01/13/2024 impressions: Large confluent area of nonhemorrhagic acute/subacute infarction in the left centrum semiovale. Additional scattered smaller bilateral nonhemorrhagic acute/subacute cerebral infarcts.
Findings may reflect embolic etiology.
Patient was not a candidate for either tenecteplase or intra-arterial thrombectomy due to timeframe out of window
Plan
Provide medical educational materials
Goal of normotension
Goal of normoglycemia
TTE with bubble studies, appreciate cardiology consultation for consideration of ORACIO
Continue aspirin 81 mg once a day. DAPT is not indicated given NIH stroke score.
Continue at home atorvastatin 40 mg QHS based on LDL less than 70
Requesting copy of brain MRI from 01/13/24 from [facility]
Rehabilitation evaluations and treatment
We will follow as needed
Subjective/Objective
Subjective Data
Date of Service: January 16, 2024
Objective Data
Vital Signs
Temp Pulse Resp BP Pulse Ox
36.6 C 48 18 155/62 96
01/16/24 07:26 01/16/24 07:26 01/16/24 07:26 01/16/24 07:26 01/16/24 07:26
Lab Results
01/15/24 18:00
01/15/24 18:00
PT 12.9 Sec (11.4-14.6) 01/14/24 10:45
INR 0.95 01/14/24 10:45
APTT 28.0 Sec (23.4-35.0) 01/14/24 10:45
Sodium 139 mmol/L (135-145) 01/15/24 18:00
Potassium 4.4 mmol/L (3.5-5.1) 01/15/24 18:00
BUN 10 mg/dl (9-20) 01/15/24 18:00
Glucose 94 mg/dl (70-99) 01/15/24 18:00
Calcium 9.3 mg/dl (8.4-10.2) 01/15/24 18:00
LDL Cholesterol Direct Cancelled 01/14/24 11:23
LDL Cholesterol, Calc 54 mg/dl 01/15/24 05:05
Patient Allergies
sulfamethoxazole [From Bactrim] Allergy (Verified 10/08/23 19:33)
racing heart rate
trimethoprim [From Bactrim] Allergy (Verified 10/08/23 19:33)
racing heart rate
Data Reviewed
-
MRI Head: Report Reviewed
Labs: Report Reviewed
Lipid Profile: Report Reviewed
Reviewed with: Physician
Old Records: Summarized
Past History
Past History
ED Past Medical History: GERD and Hypercholesterolemia
ED Past Surgical History: None
Social History
Tobacco: Non-smoker
Alcohol: Occasional
Drug: None
Personal:
Living: with family
Employment: Employed
Family History
Family History: Other (Reviewed and noncontributory)
Medications
-
Medications:
Generic Name Dose Route Start Last Admin
Trade Name Freq PRN Reason Stop Dose Admin
Acetaminophen 650 mg 01/14/24 12:40
Acetaminophen 650 Mg Rectal Suppository RECTAL 02/11/24 12:39
Q4HPRN PRN
GAMEZ, mild pain, or temp >100.4F
Acetaminophen 650 mg 01/14/24 12:40
Acetaminophen 325 Mg Tablet PO 02/11/24 12:39
Q4HPRN PRN
GAMEZ, mild pain, or temp >100.4F
Aspirin 81 mg 01/14/24 14:00 01/16/24 07:58
Aspirin 81 Mg Chewable Tablet PO 02/11/24 13:59 81 mg
DAILY ELMIRA Administration
Atenolol 25 mg 01/15/24 18:00 01/15/24 18:43
Atenolol 25 Mg Tablet PO 02/12/24 17:59 25 mg
QPM ELMIRA Administration
Atorvastatin Calcium 40 mg 01/15/24 18:00 01/15/24 18:42
Atorvastatin (Lipitor) 40 Mg Tablet PO 02/12/24 17:59 40 mg
QPM ELMIRA Administration
Enoxaparin Sodium 40 mg 01/14/24 18:00 01/15/24 18:42
Enoxaparin Sodium 40 Mg/0.4 Ml Syringe SC 02/11/24 17:59 40 mg
QPM ELMIRA Administration
Ondansetron HCl 4 mg 01/15/24 08:39
Ondansetron 4 Mg/2 Ml Vial IV 02/12/24 08:38
Q6HPRN PRN
NAUSEA/VOMITING
Pantoprazole Sodium 40 mg 01/14/24 18:00 01/15/24 18:41
Pantoprazole 40 Mg Delayed Release Tablet PO 02/11/24 17:59 40 mg
QPM ELMIRA Administration
Polyethylene Glycol 17 grams 01/15/24 11:00 01/15/24 20:24
Polyethylene Glycol Powder 17 Grams Packet PO 02/12/24 10:59 17 grams
BID ELMIRA Administration
Sodium Chloride 0 flush 01/14/24 14:00
Sodium Chloride 0.9% (Flush) Syringe IV 02/11/24 13:59
PER PROTOCOL ELMIRA
--- NOTE | 2024-01-16 10:06 | ITS.CL.IMPLP ---
[employer] Developer - Implant Loop
Implant Loop
Procedure Report:
Date of Procedure: January 16, 2024
Primary Care Provider: Dr Luis Perkins
Primary hoisting laborer: Dr Jennifer Chavez
Procedure: Insertable Loop Recorder Implantation
Indication:
Cryptogenic CVA
ORACIO earlier today failed to find structural cause of CVA.
Procedure:
The patient was brought to the procedure area in a fasting state. The anterior chest was prepped and draped in standard sterile fashion. The fourth intercostal space along the left sternal border was identified and this area was anesthetized with 10
mL of 1% lidocaine. After gathering the skin in this area, a small punch incision was made at approx intercostal space 4-5 at left costo-sternal junction using the provided scalpel/punch tool. The loop recorder was loaded into the tunneling device.
A tunnel was created in the subcutaneous tissue at a 45� angle along the coronal plane away from the sternum and towards the left flank. The tunneling device was inverted and the plunger was depressed, inserting the loop recorder into the
subcutaneous space. The tunneling device was removed. Manual pressure provide hemostasis. Adequate signal was confirmed. The skin was closed with steri-strips. The estimated blood loss was < 1 cc. A clean dressing was placed over the wound.
There were no complications.
Implant:
[employer] Reveal LINQ
Conclusion: Uncomplicated implantation of loop recorder.
Recommendation:
Routine ILR care.
If atrial fibrillation/atrial flutter is detected oral anticoagulation would be indicated
Copy:
Dr Luis Perkins
Dr Jennifer Chavez
[2024-01-16] MEDS: MIRALAX 17 GRAMS PO ×2 (10:30→21:33)
--- NOTE | 2024-01-16 12:21 | CM ---
Patient seen at bedside with . Patient indicated that they live in a 2 story home with no dme previously for patient. Patient stated that the PCP is Dr. Perkins and they use the [facility] in [place]. 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
requests [facility] for evaluation. CM will call to [facility] for review and sent tt to physician with patient request for PM&R consult. CM will continue to follow for discharge planning needs.
Plan; Acute rehab
--- NOTE | 2024-01-16 13:29 | PTOTSP ---
ST Acute Care Evaluation/ST Follow-Up
Background Information:
- Pt lives in a home with his and dog.
- Pt drives at baseline.
- Pt's is the primary person who grocery shops, cooks, cleans, and does laundry.
- Pt is independent with medication management (no system), and does forget about 1x/month.
- Pt is independent with his finances.
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
- Pt's other hobbies include sports - playing, watching, and attending events.
- At baseline, pt has hearing difficulties but does not wear hearing aides. Pt wears reading glasses. Pt is right-handed. No speech, language, or cognitive deficits appreciated prior to CVA.
Clinical Observations:
- Pt correctly recalled symptoms prior to arrival and medical dx.
- Pt with appropriate awareness of some impact of CVA (R side; language expression), but needed some prompting/education about the other areas in which it is impacting his daily function.
- Pt's was observed to have a mildly lower vocal volume, slightly hoarse vocal quality, and slightly slower speaking rate.
- Pt's appeared to understand everything that was communicated to him and demonstrated appropriate pragmatics - even joked around a bit.
- Pt's verbal expression was fairly intact - it was occasionally slow, and pt communicated frustrating with his language formulation (although it did not noticeably impact his communication exchange).
Formal Assessment:
- The Quick Aphasia Battery (QAB) was administered and revealed that pt demonstrates receptive and expressive language that are WFL. Pt exhibits mild motor speech deficits that should be assessed further.
- The MOCA was also administered to assess the pt's cognitive linguistic function. Pt received a score of 22/30 which is indicative of a mild cognitive linguistic impairment.
Findings:
Overall, pt demonstrates receptive and expressive language skills that are within functional limits. Pt exhibits clinical signs of a slight to mild motor speech impairment as well as a mild cognitive linguistic impairment with deficits in the areas
of attention, registration of information, and short term recall. Pt currently presents with oral, pharyngeal, and esophageal parameters that are WFL at this time. No overt s/s of penetration or aspiration noted at bedside.
Recommendations:
- Continue with regular solids, thin liquids, meds as tolerated.
- Continue with general aspiration precautions.
- WEIGHT YARDAGE CHECKER to sign off for skilled dysphagia tx - no tx indicated at this time.
- Continue speech and cognitive linguistic tx while admitted.
- Pt would benefit from continued speech and cognitive linguistic tx upon d/c at the acute rehab level of care.
--- NOTE | 2024-01-16 14:26 | W.PN.HOSP.TC ---
Today's Communication/Plan
-
Continue current care
Discharge planning
Assessment / Plan
Assessment / Plan
Gen-AAOx3, NAD
HEENT-NC, AT, anicteric, clear oral mm
Neck-supple
CV-reg, no M, +S1/S2
Lungs-clear B/L
Abd-soft, NT, ND
Ext-no edema
Musculoskeletal-no cyanosis, clubbing
Skin-warm and dry
Neuro-dense right sided hemiparesis
Psych-calm, cooperative
Multiple acute/subacute strokes -brain MRI 01/14 confirms large confluent area of nonhemorrhagic acute/subacute infarction in the left centrum semiovale. Additional scattered smaller bilateral nonhemorrhagic acute/subacute infarcts noted. Possibly
embolic in etiology.
CTA head and neck without vascular occlusion, aneurysm or dissection.
Neurology recommends aspirin 81 mg daily, no plavix due to size of stroke and NIH > 5
ORACIO completed 01/15, no PFO, no thrombus. Negative bubble study. LVEF 65 to 70%.
Continue home atorvastatin 40 mg at bedtime, LDL 65.
Essential hypertension -continue atenolol.
Chronic gait dysfunction
PT
COPD without exacerbation -Stable.
Alcohol use disorder -recommend strict abstinence moving forward in light of stroke diagnosis.
Tobacco dependence -recommend strict abstinence.
GERD
Continue PPI
History of AAA status post repair
DVT prophylaxis�subcu Lovenox
Full code
Dispo -stable for discharge to acute rehab. Consult physiatry.
Anticipated Discharge: Within 24 hours
Subjective/Interval History
-
Date of Service: January 16, 2024
Patient seen and examined. No new complaints.
Objective Data
-
Vital Signs:
Vital Signs
Temp Pulse Resp BP Pulse Ox
97.4 F 49 18 144/64 96
01/16/24 10:35 11/25/24 10:35 01/16/24 10:35 01/16/24 10:35 01/16/24 10:35
I&O
01/15/24 01/16/24 01/17/24
06:59 06:59 06:59
Intake Total 240 / 240 630 / 630
Output Total 1050 / 1050 1100 / 1100
Balance -810 / -810 -470 / -470
Review of Systems
-
History Source: Patient
All other systems: Reviewed and negative
[2024-01-16] MEDS: TENORMIN 12.5 MG PO (18:17)
[2024-01-16] MEDS: LIPITOR 40 MG PO (18:21)
[2024-01-16] MEDS: LOVENOX 40 MG SC (18:22)
[2024-01-16] MEDS: PROTONIX 40 MG PO (18:27)
[2024-01-17] VITALS (7 sets, daily range): BP systolic 111–136; BP diastolic 55–65; PULSE 52–53; O2SAT 94
[2024-01-17] MEDS: MIRALAX 17 GRAMS PO ×2 (07:35→19:44)
[2024-01-17] MEDS: LOW STRENGTH ASPIRIN 81 MG PO (07:35)
--- NOTE | 2024-01-17 09:00 | CON.MD ---
Documented by User: Lise Juarez PA-C 01/17/24 21:44
Consultation - Medical
-
Referring Provider: Josemanuel Healy
Chief Complaint: CVA
History of Present Illness: 78-year-old man with PMH of (abdominal aortic aneurysm repair in 2003, alcohol use, COPD, Hyperlipidemia, TIA, lumbar spinal stenosis, h/o skin cancer, rotator cuff tear, colonic polyps, diverticulosis, hiatal hernia, h/o
paget's disease) came to ER on Tuesday with new right hemiparesis and was admitted with possible stroke. Patient was previously seen in ER in September,. with slurred speech and it was unclear at that time if it was due to alcohol or a
neurologic event, he refused further workup and returned home.
He presented again to the ED on 01/06/2024 with right-sided facial droop and right upper extremity weakness. CT of the head in the ER was unremarkable and he was diagnosed with a TIA and discharged home on aspirin and Plavix. He saw a neurologist
at [place] and had an MRI on 01/12 showing multifocal acute and subacute infarcts on the right and left concerning for embolic phenomenon. On 01/13, He presented to ED with new right hemiparesis and slurred speech. He was admitted. His aspirin
was continued and plavix stopped. He was not a candidate for lytic therapy due to resolving symptoms in the ER. Had negative carotid CTA at [facility].
Brain MRI done on 01/04 confirmed large confluent area of nonhemorrhagic acute/subacute infarction in the left centrum semiovale. Additional scattered smaller bilateral nonhemorrhagic acute/subacute infarcts noted. Possibly embolic in etiology.
Cardiology was consulted for ORACIO to r/o cardiac source of embolus. ORACIO completed 01/15, no PFO, no thrombus. Negative bubble study. LVEF 65 to 70%. He underwent Insertable Loop Recorder Implantation on 01/15
Neurology recommended aspirin 81 mg daily, no plavix due to size of stroke and NIH > 5
Past Medical History: GERD and Hypercholesterolemia, Hypertension, COPD
Procedure History: Endovascular abdominal aortic aneurysm repair 2023, orthopedic procedures
Family History: CAD and Cancer
Social History:
Functional Level Premorbidly: Independent with all activities , owns cane and RW from prior surgeries
Functional Level Currently: Bed mobility�max assist, transfer�max assist,Lower extremity care�dependent due to poor balance, bed mobility�max assist of 2 supine to sit edge of bed,
Tobacco: Ex-smoker
Alcohol: daily alcohol use,
Drug use: Denies
Lives with: Family
24-hour assistance available:
Number of floors: multi level
# steps to enter: 1
# steps to second floor:
Potential First floor set up:
Driving: yes
Occupation: semi retired
Allergies:
Allergy/AdvReac Type Severity Reaction Status Date / Time
sulfamethoxazole Allergy racing Verified 10/08/23 19:33
[From Bactrim] heart rate
trimethoprim [From Bactrim] Allergy racing Verified 10/08/23 19:33
heart rate
Review of Systems:
Constitutional: (x) Normal _
Eye: (x) Normal _
Ear/Nose/Throat: (x) Normal _
Respiratory: (x) Normal _
Cardiovascular: (x) Normal _
Gastrointestinal: (x) constipation
Genitourinary: (x) Normal _
Musculoskeletal: (x) Normal _
Integumentary: (x) Normal _
Neurologic: (x) cva,, right hemiparesis
Psychiatric: (x) Normal _
Endocrine: (x) Normal _
Hematologic/Lymphatic: (x) Normal _
Allergic/Immunologic: (x) Normal _
Medications:
Active Current Visit Medication List
Category Date Time Status
Acetaminophen [Tylenol/Feverall] Med 01/14/24 12:40 Active
650 mg RECTAL Q4HPRN PRN
Acetaminophen [Tylenol] Med 01/14/24 12:40 Active
650 mg PO Q4HPRN PRN
Aspirin Chewable [Low Strength Aspirin] Med 01/14/24 14:00 Active
81 mg PO DAILY
Atenolol [Tenormin] Med 01/16/24 10:33 Active
12.5 mg PO QPM
Atorvastatin [Lipitor] Med 01/15/24 18:00 Active
40 mg PO QPM
Enoxaparin Sodium [Lovenox] Med 01/14/24 18:00 Active
40 mg SC QPM
Flush (0.9% Sodium Chloride) [Flush (Nss)] Med 01/14/24 14:00 Active
See Dose Instructions IV PER PROTOCOL
Ondansetron Injectable [Zofran] Med 01/15/24 08:39 Active
4 mg IV Q6HPRN PRN
Pantoprazole [Protonix] Med 01/14/24 18:00 Active
40 mg PO QPM
Polyethylene Glycol Powder [Miralax] Med 01/15/24 11:00 Active
17 grams PO BID
Vitals:
Temp Pulse Resp BP Pulse Ox
97.8 F 49 17 127/64 96
01/17/24 07:51 01/17/24 07:51 01/17/24 07:51 01/17/24 07:51 01/17/24 07:51
Height 6 ft 2 in
Actual Weight 95.118 kg
Body Mass Index (BMI) 26.9
Physical Exam:
General Appearance/Observation: Well-developed, well-nourished individual in no apparent distress.
Pain/Comfort Assessment: Denies
Mood/Affect: Appropriate
Integumentary/Operative Site: loop recorder
Pressure Ulcer Evaluation: absent over heels.
Other Type of Wound: bruise right upper chest
Eyes: Conjunctiva/Lids: normal Pupils: pupils equal round and reactive to light and Accommodation
Ears/Nose/Throat: oral mucosa moist, throat clear. Lips/Teeth/Gums: normal
Neck: No muscle spasm or tenderness
Cardiovascular: Heart: regular, no murmur
Pulses: dorsalis pedis 2+ bilaterally
Respiratory: Respiratory Effort/Chest Expansion: normal Auscultation: Clear to auscultation bilaterally
Gastrointestinal: abdomen not tender, no distension, normal abdominal bowel sounds
Genitourinary: No Tovar
Extremities: Edema: None Cyanosis: None Trophic changes: None
Neurology Exam:
Orientation: Alert, Oriented to self, Time, Place
Memory: Intact for immediate medical concerns
Comprehension: Intact
Two step command: Intact
Naming: Intact
Cranial Nerves:
CNII: Pupillary light reflex: Intact Visual Field: Intact
CN III, IV, : Extraocular muscles: Intact
CN V: Facial Sensation at Forehead: Intact, Maxilla: Intact, Mandible: Intact
CN VII: Facial movement: Symmetric
CN VIII: Hearing: Normal
CN IX/X: Speech & swallow: Normal, Position of Uvula: Midline
CN XI: Shoulder shrug: weakness on right
CN XII: Tongue protrusion: Midline
Sensory:
Light touch: Intact in bilateral upper and lower extremities
Reflexes:
Biceps:3+ left, 2+ right
Brachioradialis: 3+ left, 2+right
Triceps: 3+ left, 2 +right
Patellar: 3+ left, 2+ right
Achilles: absent bilaterally
Babinski: up going bilaterally
Clonus: None, rigid ankles
Evelyne: Negative bilaterally
Cerebellar: Dysmetria/Ataxia: dysmetria - right
Motor: (Manual muscle scale 0-5)
Musculoskeletal: Motor: (Manual muscle scale 0-5)
Muscle SA EF WE EE FF FA HF KE DF EHL PF
Right 0 0 0 0 0 0 0 0 0 0
Left 5 5 5 5 5 5 5 5 5 5
Tone: Normal in all extremities, increased tone in ankles/feet
Range of Motion: Passively within normal limits in all extremities, except right ankle dorsiflexion limited
Lab Results
Labs
WBC 10.3 10^3/uL (4.8-10.8) 01/15/24 18:00
RBC 4.74 10^6/uL (4.70-6.10) 01/15/24 18:00
Hgb 14.3 g/dL (13.0-18.0) 01/15/24 18:00
Hct 42.7 % (39.0-52.0) 01/15/24 18:00
MCV 90.1 fL (80.0-94.0) 01/15/24 18:00
MCH 30.2 pg (27.0-31.0) 01/15/24 18:00
MCHC 33.5 g/dL (33.0-37.0) 01/15/24 18:00
RDW 13.6 % (11.5-14.5) 01/15/24 18:00
Plt Count 217 10^3/uL (130-400) 01/15/24 18:00
MPV 10.2 fL (7.4-10.4) 01/15/24 18:00
Abs Immat Gran (auto) 0.0 10^3/uL (0-0.05) 01/15/24 18:00
Absolute Neuts (auto) 7.1 10^3/uL (1.4-6.5) H 01/15/24 18:00
Absolute Lymphs (auto) 1.9 10^3/uL (1.2-3.4) 01/15/24 18:00
Absolute Monos (auto) 1.1 10^3/uL (0.1-0.6) H 01/15/24 18:00
Absolute Eos (auto) 0.2 10^3/uL (0-0.7) 01/15/24 18:00
Absolute Basos (auto) 0.1 10^3/uL (0-0.2) 01/15/24 18:00
CBC Comment 01/15/24 18:00
Immature Gran % 0.4 % (0-0.5) 01/15/24 18:00
Neutrophils % 68.2 % (42.2-75.2) 01/15/24 18:00
Lymphocytes % 18.7 % (20.5-51.1) L 01/15/24 18:00
Monocytes % 10.2 % (1.7-9.3) H 01/15/24 18:00
Eosinophils % 1.5 % (0-6) 01/15/24 18:00
Basophils % 1.0 % (0-2) 01/15/24 18:00
Nucleated RBC % 0 % (-) 01/15/24 18:00
PT 12.9 Sec (11.4-14.6) 01/14/24 10:45
INR 0.95 01/14/24 10:45
APTT 28.0 Sec (23.4-35.0) 01/14/24 10:45
Sodium 139 mmol/L (135-145) 01/15/24 18:00
Potassium 4.4 mmol/L (3.5-5.1) 01/15/24 18:00
Chloride 105 mmol/L (98-107) 01/15/24 18:00
Carbon Dioxide 25 mmol/L (22-30) 01/15/24 18:00
BUN 10 mg/dl (9-20) 01/15/24 18:00
Creatinine 0.8 mg/dL (0.7-1.3) 01/15/24 18:00
Estimated Creat Clear 91 ml/min 01/15/24 18:00
eGFR > 60.00 01/15/24 18:00
Glucose 94 mg/dl (70-99) 01/15/24 18:00
Hemoglobin A1c Cancelled 01/14/24 11:23
Calcium 9.3 mg/dl (8.4-10.2) 01/15/24 18:00
Total Bilirubin 0.8 mg/dl (0.2-1.3) 01/15/24 18:00
AST 23 U/L (17-59) 01/15/24 18:00
ALT 17 U/L (0-50) 01/15/24 18:00
Alkaline Phosphatase 79 U/L (38-126) 01/15/24 18:00
Total Protein 6.0 g/dl (6.3-8.2) L 01/15/24 18:00
Albumin 4.0 g/dl (3.5-5.0) 01/15/24 18:00
Triglycerides 138 mg/dl (10-149) 01/15/24 05:05
Total Cholesterol 108 mg/dl (50-199) 01/15/24 05:05
LDL Cholesterol Direct Cancelled 01/14/24 11:23
LDL Cholesterol, Calc 54 mg/dl 01/15/24 05:05
VLDL Cholesterol, Calc 27 mg/dl (0-30) 01/15/24 05:05
HDL Cholesterol 27 mg/dl 01/15/24 05:05
Urine Color Yellow 01/15/24 23:21
Urine Clarity Clear (Clear) 01/15/24 23:21
Urine pH 6.5 (5.0-9.0) 01/15/24 23:21
Ur Specific [place] 1.015 (<1.030) 01/15/24 23:21
Urine Ketones Negative (Negative) 01/15/24 23:21
Urine Occult Blood Negative (Negative) 01/15/24 23:21
Urine Nitrite Negative (Negative) 01/15/24 23:21
Urine Bilirubin Negative (Negative) 01/15/24 23:21
Urine Urobilinogen Negative (Neg - 1+) 01/15/24 23:21
Ur Leukocyte Esterase Negative (Negative) 01/15/24 23:21
Urine Glucose Negative (Negative) 01/15/24 23:21
Urine Albumin Negative (Neg - Trace) 01/15/24 23:21
POC Glucose 88 mg/dl (70-99) 01/14/24 10:24
Diagnostic Results: as per HPI
ECG marked sinus bradycardia, nonspecific intraventricular conduction delay
Assessment: 78-year-old man with PMH of (abdominal aortic aneurysm repair in 2003, alcohol use, COPD, Hyperlipidemia, TIA, lumbar spinal stenosis, h/o skin cancer, rotator cuff tear, colonic polyps, diverticulosis, hiatal hernia, h/o paget's
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
Plan
PT/OT to increase independence with ADLs, improve balance, coordination, endurance, strength, mobility, community reintegration, decreased burden of care on others and family education.
CVA: Neurology recommends aspirin 81 mg daily, no plavix due to size of stroke and NIH > 5, statin, and blood pressure control (SBP less than 180 and diastolic less than 100 to participate with therapy for ischemic stroke). Continue to monitor
neurologic status.
right dominant hemiparesis: High risk for falls and sliding out of chair/bed. Safety reinforced.
- Avoid using affected arm to help lift or pull patient as this will cause trauma to the shoulder.
Cognitive linguistic and speech impairment:
HTN: continue medications, monitor closely
HLD: Statin
COPD: stable.
Psych: Psychology consult. Monitor mood,
Skin: monitor for pressure sores/rashes/lesions. Recommend multi podus boot for right leg to prevent pressure injury..
Pain: acetaminophen or oxycodone as needed.
Bowel/constipation: add Colace and Senna, PRN bisacodyl. already on Miralax.
Bladder: Time void, PVRs, PRN straight cath.
Alcohol use disorder -recommend strict abstinence moving forward in light of stroke diagnosis.
Tobacco dependence:recommend strict abstinence. Could benefit from nicotine patch
GI Prophylaxis: Pantoprazole
DVT Prophylaxis: Mechanical and Lovenox
Pulmonary: Incentive spirometry
Safety: Continue to reinforce assistance with all transfers.
Code Status: Full code
Dispo (date/plan/equipment needs): Home with family care. Social history reviewed.
Functional and Medical Goals: Modified Independent with ADL�s, ambulation, transfers
Discharge Destination: Acute inpatient rehabilitation
Summary of recommendations: Patient would benefit from acute inpatient rehab for PT/OT to increase independence with ADLs, improve balance, coordination, endurance, strength, mobility, community reintegration, decreased burden of care on others and
family education.
-
CVA: Neurology recommends aspirin 81 mg daily, no plavix due to size of stroke and NIH > 5, statin, and blood pressure control (SBP less than 180 and diastolic less than 100 to participate with therapy for ischemic stroke). Continue to monitor
neurologic status.
right dominant hemiparesis: High risk for falls and sliding out of chair/bed. Safety reinforced.
- Avoid using affected arm to help lift or pull patient as this will cause trauma to the shoulder.
Skin: monitor for pressure sores/rashes/lesions. Recommend multi podus boot for right leg to prevent pressure injury..
Cognitive linguistic and speech impairment: speech therapy
GI Prophylaxis: Pantoprazole
DVT Prophylaxis: Mechanical and Lovenox
Pulmonary: Incentive spirometry
Safety: Continue to reinforce assistance with all transfers.
Thank you for allowing me to care for your patient. Please contact me with any questions or concerns.

Documented by User: Joe Miranda MD 01/17/24 22:34
Consultation - Medical
-
Referring Provider: Josemanuel Healy
Chief Complaint: CVA
History of Present Illness: 78-year-old man with PMH of (abdominal aortic aneurysm repair in 2003, alcohol use, COPD, Hyperlipidemia, TIA, lumbar spinal stenosis, h/o skin cancer, rotator cuff tear, colonic polyps, diverticulosis, hiatal hernia, h/o
paget's disease) came to ER on Tuesday with new right hemiparesis and was admitted with possible stroke. Patient was previously seen in ER in September,. with slurred speech and it was unclear at that time if it was due to alcohol or a
neurologic event, he refused further workup and returned home.
He presented again to the ED on 01/06/2024 with right-sided facial droop and right upper extremity weakness. CT of the head in the ER was unremarkable and he was diagnosed with a TIA and discharged home on aspirin and Plavix. He saw a neurologist
at [place] and had an MRI on 01/12 showing multifocal acute and subacute infarcts on the right and left concerning for embolic phenomenon. On 01/13, He presented to ED with new right hemiparesis and slurred speech. He was admitted. His aspirin
was continued and plavix stopped. He was not a candidate for lytic therapy due to resolving symptoms in the ER. Had negative carotid CTA at [facility].
Brain MRI done on 01/04 confirmed large confluent area of nonhemorrhagic acute/subacute infarction in the left centrum semiovale. Additional scattered smaller bilateral nonhemorrhagic acute/subacute infarcts noted. Possibly embolic in etiology.
Cardiology was consulted for ORACIO to r/o cardiac source of embolus. ORACIO completed 01/15, no PFO, no thrombus. Negative bubble study. LVEF 65 to 70%. He underwent Insertable Loop Recorder Implantation on 01/15
Neurology recommended aspirin 81 mg daily, no plavix due to size of stroke and NIH > 5
Past Medical History: GERD and Hypercholesterolemia, Hypertension, COPD
Procedure History: Endovascular abdominal aortic aneurysm repair 2023, orthopedic procedures
Family History: CAD and Cancer
Social History:
Functional Level Premorbidly: Independent with all activities , owns cane and RW from prior surgeries
Functional Level Currently: Bed mobility�max assist, transfer�max assist,Lower extremity care�dependent due to poor balance, bed mobility�max assist of 2 supine to sit edge of bed,
Tobacco: Ex-smoker
Alcohol: daily alcohol use,
Drug use: Denies
Lives with: Family
24-hour assistance available: Yes
Number of floors: multi level
# steps to enter: 1
# steps to second floor: full flight
Potential First floor set up: Possible
Driving: yes
Occupation: semi retired
Allergies:
Allergy/AdvReac Type Severity Reaction Status Date / Time
sulfamethoxazole Allergy racing Verified 10/08/23 19:33
[From Bactrim] heart rate
trimethoprim [From Bactrim] Allergy racing Verified 10/08/23 19:33
heart rate
Review of Systems:
Constitutional: (x) abNormal _fatigue
Eye: (x) Normal _
Ear/Nose/Throat: (x) Normal _
Respiratory: (x) Normal _
Cardiovascular: (x) Normal _
Gastrointestinal: (x) constipation
Genitourinary: (x) Normal _
Musculoskeletal: (x) Normal _
Integumentary: (x) Normal _
Neurologic: (x) cva,, right hemiparesis
Psychiatric: (x) Normal _
Endocrine: (x) Normal _
Hematologic/Lymphatic: (x) Normal _
Allergic/Immunologic: (x) Normal _
Medications:
Active Current Visit Medication List
Category Date Time Status
Acetaminophen [Tylenol/Feverall] Med 01/14/24 12:40 Active
650 mg RECTAL Q4HPRN PRN
Acetaminophen [Tylenol] Med 01/14/24 12:40 Active
650 mg PO Q4HPRN PRN
Aspirin Chewable [Low Strength Aspirin] Med 01/14/24 14:00 Active
81 mg PO DAILY
Atenolol [Tenormin] Med 01/16/24 10:33 Active
12.5 mg PO QPM
Atorvastatin [Lipitor] Med 01/15/24 18:00 Active
40 mg PO QPM
Enoxaparin Sodium [Lovenox] Med 01/14/24 18:00 Active
40 mg SC QPM
Flush (0.9% Sodium Chloride) [Flush (Nss)] Med 01/14/24 14:00 Active
See Dose Instructions IV PER PROTOCOL
Ondansetron Injectable [Zofran] Med 01/15/24 08:39 Active
4 mg IV Q6HPRN PRN
Pantoprazole [Protonix] Med 01/14/24 18:00 Active
40 mg PO QPM
Polyethylene Glycol Powder [Miralax] Med 01/15/24 11:00 Active
17 grams PO BID
Vitals:
Temp Pulse Resp BP Pulse Ox
97.8 F 49 17 127/64 96
01/17/24 07:51 01/17/24 07:51 01/17/24 07:51 01/17/24 07:51 01/17/24 07:51
Height 6 ft 2 in
Actual Weight 95.118 kg
Body Mass Index (BMI) 26.9
Physical Exam:
General Appearance/Observation: Well-developed, well-nourished male in no apparent distress.
Pain/Comfort Assessment: Denies
Mood/Affect: Appropriate
Integumentary/Operative Site: loop recorder
Pressure Ulcer Evaluation: absent over heels.
Other Type of Wound: bruise right upper chest
Eyes: Conjunctiva/Lids: normal Pupils: pupils equal round and reactive to light and Accommodation
Ears/Nose/Throat: oral mucosa moist, throat clear. Lips/Teeth/Gums: normal
Neck: No muscle spasm or tenderness
Cardiovascular: Heart: regular, no murmur
Pulses: dorsalis pedis 2+ bilaterally
Respiratory: Respiratory Effort/Chest Expansion: normal Auscultation: Clear to auscultation bilaterally
Gastrointestinal: abdomen not tender, no distension, normal abdominal bowel sounds
Genitourinary: No Tovar
Extremities: Edema: None Cyanosis: None Trophic changes: None
Neurology Exam:
Orientation: Alert, Oriented to self, Time, Place
Memory: Intact for immediate medical concerns
Comprehension: Intact
Two step command: Intact
Naming: Intact
Cranial Nerves:
CNII: Pupillary light reflex: Intact Visual Field: Intact
CN III, IV, : Extraocular muscles: Intact
CN V: Facial Sensation at Forehead: Intact, Maxilla: Intact, Mandible: Intact
CN VII: Facial movement: decreased right side
CN VIII: Hearing: Normal
CN IX/X: Speech & swallow: Normal, Position of Uvula: Midline
CN XI: Shoulder shrug: weakness on right
CN XII: Tongue protrusion: Midline
Sensory:
Light touch: Intact in bilateral upper and lower extremities
Reflexes:
Biceps:3+ left, 2+ right
Brachioradialis: 3+ left, 2+right
Triceps: 3+ left, 2 +right
Patellar: 3+ left, 2+ right
Achilles: absent bilaterally
Babinski: up going bilaterally
Clonus: None
Evelyne: Negative bilaterally
Cerebellar: Dysmetria/Ataxia: dysmetria - right unable to test, none on left
Musculoskeletal: Motor: (Manual muscle scale 0-5)
Muscle SA EF WE EE FF FA HF KE DF EHL PF
Right 0 0 0 0 0 0 0 0 0 0
Left 5 5 5 5 5 5 5 5 5 5
Tone: Normal in all extremities, increased tone in right leg more than left
Range of Motion: Passively within normal limits in all extremities, except right ankle dorsiflexion limited
Lab Results
Labs
WBC 10.3 10^3/uL (4.8-10.8) 01/15/24 18:00
RBC 4.74 10^6/uL (4.70-6.10) 01/15/24 18:00
Hgb 14.3 g/dL (13.0-18.0) 01/15/24 18:00
Hct 42.7 % (39.0-52.0) 01/15/24 18:00
MCV 90.1 fL (80.0-94.0) 01/15/24 18:00
MCH 30.2 pg (27.0-31.0) 01/15/24 18:00
MCHC 33.5 g/dL (33.0-37.0) 01/15/24 18:00
RDW 13.6 % (11.5-14.5) 01/15/24 18:00
Plt Count 217 10^3/uL (130-400) 01/15/24 18:00
MPV 10.2 fL (7.4-10.4) 01/15/24 18:00
Abs Immat Gran (auto) 0.0 10^3/uL (0-0.05) 01/15/24 18:00
Absolute Neuts (auto) 7.1 10^3/uL (1.4-6.5) H 01/15/24 18:00
Absolute Lymphs (auto) 1.9 10^3/uL (1.2-3.4) 01/15/24 18:00
Absolute Monos (auto) 1.1 10^3/uL (0.1-0.6) H 01/15/24 18:00
Absolute Eos (auto) 0.2 10^3/uL (0-0.7) 01/15/24 18:00
Absolute Basos (auto) 0.1 10^3/uL (0-0.2) 01/15/24 18:00
CBC Comment 01/15/24 18:00
Immature Gran % 0.4 % (0-0.5) 01/15/24 18:00
Neutrophils % 68.2 % (42.2-75.2) 01/15/24 18:00
Lymphocytes % 18.7 % (20.5-51.1) L 01/15/24 18:00
Monocytes % 10.2 % (1.7-9.3) H 01/15/24 18:00
Eosinophils % 1.5 % (0-6) 01/15/24 18:00
Basophils % 1.0 % (0-2) 01/15/24 18:00
Nucleated RBC % 0 % (-) 01/15/24 18:00
PT 12.9 Sec (11.4-14.6) 01/14/24 10:45
INR 0.95 01/14/24 10:45
APTT 28.0 Sec (23.4-35.0) 01/14/24 10:45
Sodium 139 mmol/L (135-145) 01/15/24 18:00
Potassium 4.4 mmol/L (3.5-5.1) 01/15/24 18:00
Chloride 105 mmol/L (98-107) 01/15/24 18:00
Carbon Dioxide 25 mmol/L (22-30) 01/15/24 18:00
BUN 10 mg/dl (9-20) 01/15/24 18:00
Creatinine 0.8 mg/dL (0.7-1.3) 01/15/24 18:00
Estimated Creat Clear 91 ml/min 01/15/24 18:00
eGFR > 60.00 01/15/24 18:00
Glucose 94 mg/dl (70-99) 01/15/24 18:00
Hemoglobin A1c Cancelled 01/14/24 11:23
Calcium 9.3 mg/dl (8.4-10.2) 01/15/24 18:00
Total Bilirubin 0.8 mg/dl (0.2-1.3) 01/15/24 18:00
AST 23 U/L (17-59) 01/15/24 18:00
ALT 17 U/L (0-50) 01/15/24 18:00
Alkaline Phosphatase 79 U/L (38-126) 01/15/24 18:00
Total Protein 6.0 g/dl (6.3-8.2) L 01/15/24 18:00
Albumin 4.0 g/dl (3.5-5.0) 01/15/24 18:00
Triglycerides 138 mg/dl (10-149) 01/15/24 05:05
Total Cholesterol 108 mg/dl (50-199) 01/15/24 05:05
LDL Cholesterol Direct Cancelled 01/14/24 11:23
LDL Cholesterol, Calc 54 mg/dl 01/15/24 05:05
VLDL Cholesterol, Calc 27 mg/dl (0-30) 01/15/24 05:05
HDL Cholesterol 27 mg/dl 01/15/24 05:05
Urine Color Yellow 01/15/24 23:21
Urine Clarity Clear (Clear) 01/15/24 23:21
Urine pH 6.5 (5.0-9.0) 01/15/24 23:21
Ur Specific [place] 1.015 (<1.030) 01/15/24 23:21
Urine Ketones Negative (Negative) 01/15/24 23:21
Urine Occult Blood Negative (Negative) 01/15/24 23:21
Urine Nitrite Negative (Negative) 01/15/24 23:21
Urine Bilirubin Negative (Negative) 01/15/24 23:21
Urine Urobilinogen Negative (Neg - 1+) 01/15/24 23:21
Ur Leukocyte Esterase Negative (Negative) 01/15/24 23:21
Urine Glucose Negative (Negative) 01/15/24 23:21
Urine Albumin Negative (Neg - Trace) 01/15/24 23:21
POC Glucose 88 mg/dl (70-99) 01/14/24 10:24
Diagnostic Results: as per HPI
ECG marked sinus bradycardia, nonspecific intraventricular conduction delay
Assessment: 78-year-old Right handed M PMH (abdominal aortic aneurysm repair in 2004, alcohol use, COPD, Hyperlipidemia, TIA, lumbar spinal stenosis, h/o skin cancer, rotator cuff tear, colonic polyps, diverticulosis, hiatal hernia, h/o paget's
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
Plan
PT/OT to increase independence with ADLs, improve balance, coordination, endurance, strength, mobility, community reintegration, decreased burden of care on others and family education.
CVA: Neurology recommends aspirin 81 mg daily, no plavix due to size of stroke and NIH > 5, statin, and blood pressure control (SBP less than 180 and diastolic less than 100 to participate with therapy for ischemic stroke). Continue to monitor
neurologic status.
Right dominant spastic hemiparesis: High risk for falls and sliding out of chair/bed. Safety reinforced.
- Avoid using affected arm to help lift or pull patient as this will cause trauma to the shoulder.
-Might need baclofen to help with tone, for now stretching/ROM, modalities
- Right multipodous boot ordered.
HTN: atenolol, monitor closely
HLD: Statin
COPD: stable.
Psych: Psychology consult. Monitor mood,
Skin: monitor for pressure sores/rashes/lesions. Recommend multipodus boot for right leg to prevent pressure injury..
Pain: acetaminophen or oxycodone as needed.
Bowel/constipation: add Colace and Senna, PRN bisacodyl. already on Miralax.
Bladder: Time void, PVRs, PRN straight cath.
Alcohol use disorder -recommend strict abstinence moving forward in light of stroke diagnosis.
Tobacco dependence:recommend strict abstinence. Could benefit from nicotine patch
GI Prophylaxis: Pantoprazole
DVT Prophylaxis: Mechanical and Lovenox
Pulmonary: Incentive spirometry
Safety: Continue to reinforce assistance with all transfers.
Code Status: Full code
Dispo (date/plan/equipment needs): Home with family care. Social history reviewed.
Functional and Medical Goals: Modified Independent with ADL�s, ambulation, transfers
Discharge Destination: Acute inpatient rehabilitation
Summary of recommendations: Patient would benefit from acute inpatient rehab for PT/OT to increase independence with ADLs, improve balance, coordination, endurance, strength, mobility, community reintegration, decreased burden of care on others and
family education.
CVA: aspirin 81 mg daily, no plavix due to size of stroke and NIH > 5, statin, and blood pressure control (SBP less than 180 and diastolic less than 100 to participate with therapy for ischemic stroke). Monitor neurologic status.
Right dominant spastic hemiparesis: High risk for falls and sliding out of chair/bed. Safety reinforced.
- Avoid using affected arm to help lift or pull patient as this will cause trauma to the shoulder.
-Might need baclofen to help with tone, for now stretching/ROM, modalities
- Right multipodous boot ordered.
Skin: monitor for pressure sores/rashes/lesions. Recommend multi podus boot for right leg to prevent pressure injury..
DVT Prophylaxis: Mechanical and Lovenox
Attending Statement:
I saw and examined the patient today. Reviewed care plan with patient, therapy, nursing, and physician dental chairside assistant. I agree with the above subjective and physical exam, and plan as documented by JAYNE Juarez with adjustments made as necessary.
Thank you for allowing me to care for your patient. Please contact me with any questions or concerns.
--- NOTE | 2024-01-17 12:54 | W.PN.HOSP.TC ---
Today's Communication/Plan
-
Physiatry consult
Discharge planning
Assessment / Plan
Assessment / Plan
Gen-AAOx3, NAD
HEENT-NC, AT, anicteric, clear oral mm
Neck-supple
CV-reg, no M, +S1/S2
Lungs-clear B/L
Abd-soft, NT, ND
Ext-no edema
Musculoskeletal-no cyanosis, clubbing
Skin-warm and dry
Neuro-dense right sided hemiparesis
Psych-calm, cooperative
Multiple acute/subacute strokes -brain MRI 01/14 confirms large confluent area of nonhemorrhagic acute/subacute infarction in the left centrum semiovale. Additional scattered smaller bilateral nonhemorrhagic acute/subacute infarcts noted. Possibly
embolic in etiology.
CTA head and neck without vascular occlusion, aneurysm or dissection.
Neurology recommends aspirin 81 mg daily, no plavix due to size of stroke and NIH > 5
ORACIO completed 01/15, no PFO, no thrombus. Negative bubble study. LVEF 65 to 70%.
Continue home atorvastatin 40 mg at bedtime, LDL 65.
Essential hypertension -continue atenolol.
Chronic gait dysfunction
PT
COPD without exacerbation -Stable.
Alcohol use disorder -recommend strict abstinence moving forward in light of stroke diagnosis.
Tobacco dependence -recommend strict abstinence.
GERD
Continue PPI
History of AAA status post repair
DVT prophylaxis�subcu Lovenox
Full code
Dispo -stable for discharge to acute rehab. Consult physiatry. Case management aware.
Anticipated Discharge: Within 24 hours
Subjective/Interval History
-
Date of Service: January 17, 2024
Patient seen and examined. Feels that he is making progress with the right-sided weakness. No complaints otherwise.
Objective Data
-
Vital Signs:
Vital Signs
Temp Pulse Resp BP Pulse Ox
97.7 F 53 16 111/63 96
01/17/24 11:28 01/17/24 11:28 01/17/24 11:28 01/17/24 11:28 01/17/24 11:28
I&O
01/16/24 01/17/24 01/18/24
06:59 06:59 06:59
Intake Total 630 / 630 750 / 750
Output Total 1100 / 1100 1425 / 1425
Balance -470 / -470 -675 / -675
Review of Systems
-
History Source: Patient
All other systems: Reviewed and negative
--- NOTE | 2024-01-17 13:18 | W.PN.UPDATE ---
Update Note
Progress Note Update
Overnight tele reviewed and no atrial arrhythmia. Office follow up with incision check in 1-2 weeks will be placed on d/c instructions. Patient is being evaluated for [facility] rehab stay.
[2024-01-17] MEDS: LIPITOR 40 MG PO (17:03)
[2024-01-17] MEDS: PROTONIX 40 MG PO (17:03)
[2024-01-17] MEDS: LOVENOX 40 MG SC (17:03)
[2024-01-17] MEDS: TENORMIN 12.5 MG PO (17:04)
[2024-01-18] VITALS (8 sets, daily range): BP systolic 100–135; BP diastolic 45–67; PULSE 55
--- NOTE | 2024-01-18 05:52 | DOWNTIME ---
There was a [employer] Machine Downtime on 01/18/2024 from 0100 to 01/18/2024 at 0350. Downtime documentation of patient's care, including medication administrations, has been reconciled in the electronic record per guidelines. Refer to the
patient's paper chart under the miscellaneous tab to see printed paper medication records and downtime forms.
[2024-01-18] MEDS: MIRALAX 17 GRAMS PO (08:06)
[2024-01-18] MEDS: LOW STRENGTH ASPIRIN 81 MG PO (08:06)
--- NOTE | 2024-01-18 11:27 | W.PN.CARDCBS ---
Today's Communication / Plan
-
Stable cardiac status
From our standpoint, could be transferred to rehab
Relatively bradycardic but for now we will continue atenolol 12.5 mg daily
We will arrange for Linq monitoring while in rehab
We will arrange for outpatient cardiac follow-up.
Will sign off, please call if questions.
Impression / Plan
-
PCP: Dr. Perkins
Cardiology: Dr. Chavez
Impression:
Admitted with acute right hemiparesis 01/14/24
Acute left pure motor lacunar syndrome
Acute/subacute multifocal infarcts by outpatient MRI at [place] 01/13/24
HTN
Hyperlipidemia
COPD
ETOH use disorder
s/p FEVAR (AAA repair) 05/2023
Echo 04/18/2023: EF 60 to 65%, normal diastolic function, mildly sclerotic aortic valve with normal leaflet excursion and no regurgitation
Plan:
Stable cardiac status, telemetry shows he is mildly bradycardic but currently heart rates are acceptable so we will continue atenolol 12.5 mg daily.
Still no evidence of atrial fibrillation on the monitor.
LINQ monitor in place, we will make sure that cheikh is activated so he can be monitored in rehab.
We will arrange for cardiac follow-up.
Recommended cardiac meds at discharge:
Aspirin 81 mg/day or per neuro
Atorvastatin 40 mg a day
Atenolol 12.5 mg daily
We will sign off, please call if questions
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
Subjective
Date of Service: January 18, 2024:
78-year-old man with history of abdominal aortic aneurysm repair in 2003, alcohol use, recurrent neurologic events and recent MRI in [facility] showing multifocal acute and subacute infarcts. Initial transient neuro event September 2023. Had
negative cerebrovascular CTA at [facility] recently, MRI at [facility] few days ago showed multiple infarcts
PMH: Hypertension, hyperlipidemia, COPD
PSH: Endovascular abdominal aortic aneurysm repair 2023, orthopedic procedures
Social: Ex-smoker, daily alcohol use,
FH: Noncontributory
Allergies: Sulfa
Outpatient meds: Reviewed
Current meds: Atenolol 12.5 mg daily, atorvastatin 40 mg a day, aspirin 81 mg a day, subcu Lovenox
116/48, pulse 51, resprate 16, afebrile, no recent weights, 136/62, dense right hemiparesis/plegia, lungs are clear, regular rate and rhythm, no obvious murmur, JVD okay, abdomen benign, neuro with right hemiplegia, no edema
No labs today
Telemetry: Sinus rhythm, sinus bradycardia
Objective
Labs:
01/15/24 18:00
01/15/24 18:00
Labs
Hgb 14.3 g/dL (13.0-18.0) 01/15/24 18:00
Hct 42.7 % (39.0-52.0) 01/15/24 18:00
Plt Count 217 10^3/uL (130-400) 01/15/24 18:00
PT 12.9 Sec (11.4-14.6) 01/14/24 10:45
INR 0.95 01/14/24 10:45
APTT 28.0 Sec (23.4-35.0) 01/14/24 10:45
Sodium 139 mmol/L (135-145) 01/15/24 18:00
Potassium 4.4 mmol/L (3.5-5.1) 01/15/24 18:00
BUN 10 mg/dl (9-20) 01/15/24 18:00
Creatinine 0.8 mg/dL (0.7-1.3) 01/15/24 18:00
Glucose 94 mg/dl (70-99) 01/15/24 18:00
Vital Signs and I&O:
Vital Signs
Temp Pulse Resp BP Pulse Ox
36.7 C 51 16 116/48 93
01/18/24 07:50 01/18/24 07:50 01/18/24 07:50 01/18/24 07:50 01/18/24 07:50
Vital Signs
Temp Pulse Resp BP Pulse Ox
36.7 C 51 16 116/48 93
01/18/24 07:50 01/18/24 07:50 01/18/24 07:50 01/18/24 07:50 01/18/24 07:50
Intake & Output
01/16/24 01/17/24 01/18/24 01/19/24
07:59 07:59 07:59 07:59
Intake Total 630 / 630 750 / 750 840 / 840
Output Total 1100 / 1100 1425 / 1425 525 / 525
Balance -470 / -470 -675 / -675 315 / 315
Physical Exam
Physical Exam
See above
--- NOTE | 2024-01-18 11:46 | W.PN.UPDATE ---
Update Note
Progress Note Update
Reviewed MRI results with physician and patient's family via phone.
I agree with the current approach that is being given including aspirin and atorvastatin.
Advised them to contact a subspecialist in the field of stroke for additional review.
Past History
Past History
ED Past Medical History: CVA, GERD and Hypercholesterolemia
ED Past Surgical History: None
Social History
Tobacco: Non-smoker
Alcohol: Occasional
Drug: None
Personal:
Living: with family
Employment: Employed
Family History
Family History: Other (Reviewed and noncontributory)
Medications
-
Medications:
Generic Name Dose Route Start Last Admin
Trade Name Freq PRN Reason Stop Dose Admin
Acetaminophen 650 mg 01/14/24 12:40
Acetaminophen 650 Mg Rectal Suppository RECTAL 02/11/24 12:39
Q4HPRN PRN
GAMEZ, mild pain, or temp >100.4F
Acetaminophen 650 mg 01/14/24 12:40
Acetaminophen 325 Mg Tablet PO 02/11/24 12:39
Q4HPRN PRN
GAMEZ, mild pain, or temp >100.4F
Aspirin 81 mg 01/14/24 14:00 01/18/24 08:06
Aspirin 81 Mg Chewable Tablet PO 02/11/24 13:59 81 mg
DAILY ELMIRA Administration
Atenolol 12.5 mg 01/16/24 10:33 01/17/24 17:04
Atenolol 25 Mg Tablet PO 02/12/24 17:59 12.5 mg
QPM ELMIRA Administration
Atorvastatin Calcium 40 mg 01/15/24 18:00 01/17/24 17:03
Atorvastatin (Lipitor) 40 Mg Tablet PO 02/12/24 17:59 40 mg
QPM ELMIRA Administration
Enoxaparin Sodium 40 mg 01/14/24 18:00 01/17/24 17:03
Enoxaparin Sodium 40 Mg/0.4 Ml Syringe SC 02/11/24 17:59 40 mg
QPM ELMIRA Administration
Ondansetron HCl 4 mg 01/15/24 08:39
Ondansetron 4 Mg/2 Ml Vial IV 02/12/24 08:38
Q6HPRN PRN
NAUSEA/VOMITING
Pantoprazole Sodium 40 mg 01/14/24 18:00 01/17/24 17:03
Pantoprazole 40 Mg Delayed Release Tablet PO 02/11/24 17:59 40 mg
QPM ELMIRA Administration
Polyethylene Glycol 17 grams 01/15/24 11:00 01/18/24 08:06
Polyethylene Glycol Powder 17 Grams Packet PO 02/12/24 10:59 17 grams
BID ELMIRA Administration
Sodium Chloride 0 flush 01/14/24 14:00
Sodium Chloride 0.9% (Flush) Syringe IV 02/11/24 13:59
PER PROTOCOL ELMIRA
--- NOTE | 2024-01-18 12:27 | W.PN.HOSP.TC ---
Today's Communication/Plan
-
Discharge planning
Assessment / Plan
Assessment / Plan
Gen-AAOx3, NAD
HEENT-NC, AT, anicteric, clear oral mm
Neck-supple
CV-reg, no M, +S1/S2
Lungs-clear B/L
Abd-soft, NT, ND
Ext-no edema
Musculoskeletal-no cyanosis, clubbing
Skin-warm and dry
Neuro-dense right sided hemiparesis
Psych-calm, cooperative
Multiple acute/subacute strokes -brain MRI 01/14 confirms large confluent area of nonhemorrhagic acute/subacute infarction in the left centrum semiovale. Additional scattered smaller bilateral nonhemorrhagic acute/subacute infarcts noted. Possibly
embolic in etiology.
CTA head and neck without vascular occlusion, aneurysm or dissection.
Neurology recommends aspirin 81 mg daily, no plavix due to size of stroke and NIH > 5
ORACIO completed 01/15, no PFO, no thrombus. Negative bubble study. LVEF 65 to 70%. Linq device implanted on 01/15. Outpatient cardiology follow-up.
Continue home atorvastatin 40 mg at bedtime, LDL 65.
Essential hypertension -continue atenolol.
Chronic gait dysfunction
PT
COPD without exacerbation -Stable.
Alcohol use disorder -recommend strict abstinence moving forward in light of stroke diagnosis.
Tobacco dependence -recommend strict abstinence.
GERD
Continue PPI
History of AAA status post repair
DVT prophylaxis�subcu Lovenox
Full code
Dispo -stable for discharge to acute rehab. Case management aware. No bed available in [facility] re[facility] until Tuesday. Long discussion with patient and family today to strongly consider other rehab locations as waiting until Tuesday is not medically
appropriate as it will contribute to worsening of his deficits and overall weakness.
55 minutes spent today reviewing records, discussing with patient and family, answering questions, discussion with other healthcare providers, seeing and examining the patient.
Anticipated Discharge: > 48 hours
Subjective/Interval History
-
Date of Service: January 18, 2024
Patient seen and examined. No new complaints.
Objective Data
-
Vital Signs:
Vital Signs
Temp Pulse Resp BP Pulse Ox
98.1 F 51 16 116/48 93
01/18/24 07:50 01/18/24 07:50 01/18/24 07:50 01/18/24 07:50 01/18/24 08:06
I&O
01/17/24 01/18/24 01/19/24
06:59 06:59 06:59
Intake Total 750 / 750 840 / 840
Output Total 1425 / 1425 525 / 525
Balance -675 / -675 315 / 315
Review of Systems
-
History Source: Patient
All other systems: Reviewed and negative
[2024-01-18] MEDS: DULCOLAX 10 MG RECTAL (14:26)
--- NOTE | 2024-01-18 14:49 | PTCARENOTE ---
patient's LBM 01/11. administered Dulcolax suppository as ordered. tolerating diet, turns with assist x2, vss, will continue to monitor for BM results, will continue to monitor.
[2024-01-18] MEDS: PROTONIX 40 MG PO (17:19)
[2024-01-18] MEDS: TENORMIN 12.5 MG PO (17:19)
[2024-01-18] MEDS: LOVENOX 40 MG SC (17:20)
[2024-01-18] MEDS: LIPITOR 40 MG PO (17:20)
--- NOTE | 2024-01-18 17:46 | CM ---
[facility] said pt appropriate for acute rehab. [facility] has no beds.
[facility] Fish spoke with pt and his .They agreed to [place] [address] [address] [facility] [place].
Pt needs a BM before dc.
Medical nec form completed Ambulance needed. Ambulance set up for 01/19/24 at 12:30.
[facility]
report [phone]
fax [phone]
PLAN To [facility] tomorrow via ambulance
--- NOTE | 2024-01-18 18:52 | PTCARENOTE ---
patient continent of large brown BM on bedpan
[2024-01-18] MEDS: MIRALAX PO (21:01)
[2024-01-19 03:00] VITALS: BP 134/67
[2024-01-19 07:30] VITALS: BP 134/61
[2024-01-19] MEDS: MIRALAX PO (07:46)
[2024-01-19] MEDS: LOW STRENGTH ASPIRIN 81 MG PO (07:46)
--- NOTE | 2024-01-19 10:28 | W.DS.TRANS ---
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
-
Discharge Instructions:
Discharge Diagnosis/Procedures Acute strokes
Diet Low Cholesterol,Low Fat
Activity With assistance,As tolerated
Driving Restrictions No driving
Bathing Restrictions None
Instructions:
Stand-Alone Forms:
Changes to Home Medications: No
Discharge Medications:
DC Medications w/original date entered in [facility]
omeprazole 20 mg tablet,delayed release 20 mg PO QPM Gastrointestinal Issue 06/06/23
aspirin 81 mg chewable tablet (Children's Aspirin) 81 mg PO QPM Blood Clot Prevention/Tx 01/06/24
atorvastatin 40 mg tablet 40 mg PO QPM High Cholesterol 01/14/24
atenolol 25 mg tablet 12.5 mg (1/2 x 25 mg) PO QPM #0 tabs 01/18/24
polyethylene glycol 3350 17 gram oral powder packet 17 g PO BID #0 ea 01/18/24
Home Medication Changes
Pending Results: No
[2024-01-19 11:30] VITALS: BP 146/62
--- NOTE | 2024-01-19 12:08 | W.PN.HOSP.TC ---
Today's Communication/Plan
-
discharge
Assessment / Plan
Assessment / Plan
Gen-AAOx3, NAD
HEENT-NC, AT, anicteric, clear oral mm
Neck-supple
CV-reg, no M, +S1/S2
Lungs-clear B/L
Abd-soft, NT, ND
Ext-no edema
Musculoskeletal-no cyanosis, clubbing
Skin-warm and dry
Neuro-dense right sided hemiparesis
Psych-calm, cooperative
Multiple acute/subacute strokes -brain MRI 01/14 confirms large confluent area of nonhemorrhagic acute/subacute infarction in the left centrum semiovale. Additional scattered smaller bilateral nonhemorrhagic acute/subacute infarcts noted. Possibly
embolic in etiology.
CTA head and neck without vascular occlusion, aneurysm or dissection.
Neurology recommends aspirin 81 mg daily, no plavix due to size of stroke and NIH > 5
ORACIO completed 01/15, no PFO, no thrombus. Negative bubble study. LVEF 65 to 70%. Linq device implanted on 01/15. Outpatient cardiology follow-up.
Continue home atorvastatin 40 mg at bedtime, LDL 65.
Essential hypertension -continue atenolol.
Chronic gait dysfunction
PT
COPD without exacerbation -Stable.
Alcohol use disorder -recommend strict abstinence moving forward in light of stroke diagnosis.
Tobacco dependence -recommend strict abstinence.
GERD
Continue PPI
History of AAA status post repair
DVT prophylaxis�subcu Lovenox
Full code
Dispo -stable for discharge to acute rehab. Case management aware.
40 min spent in discharge process.
Anticipated Discharge: Today
Subjective/Interval History
-
Date of Service: January 19, 2024
Patient seen/examined, no complaints.
Objective Data
-
Vital Signs:
Vital Signs
Temp Pulse Resp BP Pulse Ox
97.7 F 47 16 134/61 95
01/19/24 07:30 01/19/24 07:30 01/19/24 07:30 01/19/24 07:30 01/19/24 07:30
I&O
01/18/24 01/19/24 01/20/24
06:59 06:59 06:59
Intake Total 840 / 840 960 / 960
Output Total 525 / 525 600 / 600
Balance 315 / 315 360 / 360
Review of Systems
-
History Source: Patient
All other systems: Reviewed and negative
== END 2024-01-19 12:33 | DRG 41 ==
LOC: 3 WEST ACU 12:01
PROVIDERS: Internal Medicine; Internal Medicine Cardiovascular Disease; ADMITTING PHYSICIAN Family Medicine; ATTENDING PHYSICIAN Hospitalist; CONSULT PHYSICIAN Physical Medicine & Rehabilitation; CONSULT PHYSICIAN Psychiatry & Neurology Neurology; EMERGENCY PHYSICIAN Emergency Medicine; FAMILY PHYSICIAN Family Medicine; OTHER PHYSICIAN Internal Medicine Cardiovascular Disease
PROC: B24BZZ4 Ultrasonography of Heart with Aorta, Transesophageal (ICD-10-PCS; 2024-01-16)
PROC: 0JH632Z Insertion of Monitoring Device into Chest Subcutaneous Tissue and Fascia, Percutaneous Approach (ICD-10-PCS; 2024-01-16)
DX: I63.40 Cerebral infarction due to embolism of unspecified cerebral artery (principal); G81.11 Spastic hemiplegia affecting right dominant side; R47.01 Aphasia; R29.810 Facial weakness; R29.708 NIHSS score 8; J44.9 Chronic obstructive pulmonary disease, unspecified; I10 Essential (primary) hypertension; I25.10 Atherosclerotic heart disease of native coronary artery without angina pectoris; G46.7 Other lacunar syndromes; G46.5 Pure motor lacunar syndrome; F51.01 Primary insomnia; F17.200 Nicotine dependence, unspecified, uncomplicated; E53.8 Deficiency of other specified B group vitamins; E78.00 Pure hypercholesterolemia, unspecified; F10.10 Alcohol abuse, uncomplicated; I49.9 Cardiac arrhythmia, unspecified; Z96.651 Presence of right artificial knee joint; Z96.643 Presence of artificial hip joint, bilateral; Z88.2 Allergy status to sulfonamides; Z88.1 Allergy status to other antibiotic agents; Z86.79 Personal history of other diseases of the circulatory system; Z79.82 Long term (current) use of aspirin; Z79.02 Long term (current) use of antithrombotics/antiplatelets; Z79.899 Other long term (current) drug therapy
CPT/HCPCS: 33285; 70450; 70496; 70498; 70551; 80053; 80061; 81003; 82962; 83721; 85025; 85610; 85730; 92523; 92526; 92610; 93005; 93312; 93320; 93325; 96360; 97110; 97112; 97163; 97167; 97530; 97535; 99285; C1764; J3101; Q9967

== ENCOUNTER → 2024-06-28 12:25 | Outpatient (REF) | payer MEDICARE, SELFPAY | LOC: WOUND 12:25 | PROVIDERS: ATTENDING PHYSICIAN Surgery; FAMILY PHYSICIAN Family Medicine | DX: L97.412 Non-pressure chronic ulcer of right heel and midfoot with fat layer exposed (principal); I73.9 Peripheral vascular disease, unspecified; I45.4 Nonspecific intraventricular block; I71.40 Abdominal aortic aneurysm, without rupture, unspecified; Z86.73 Personal history of transient ischemic attack (TIA), and cerebral infarction without residual deficits; Z86.79 Personal history of other diseases of the circulatory system; Z87.891 Personal history of nicotine dependence | CPT/HCPCS: 11042; 73630; 99204 ==

== ENCOUNTER → 2024-07-05 13:19 | Outpatient (REF) | payer MEDICARE, SELFPAY | LOC: WOUND 13:19 | PROVIDERS: ATTENDING PHYSICIAN Surgery; FAMILY PHYSICIAN Family Medicine | DX: L97.412 Non-pressure chronic ulcer of right heel and midfoot with fat layer exposed (principal); I73.9 Peripheral vascular disease, unspecified; I45.4 Nonspecific intraventricular block; I71.40 Abdominal aortic aneurysm, without rupture, unspecified; Z86.73 Personal history of transient ischemic attack (TIA), and cerebral infarction without residual deficits; Z86.79 Personal history of other diseases of the circulatory system | CPT/HCPCS: 11042 ==

== ENCOUNTER → 2024-07-11 07:32 | Outpatient (REF) | payer MEDICARE, SELFPAY | LOC: RAD 07:32 | PROVIDERS: ATTENDING PHYSICIAN Surgery Vascular Surgery; FAMILY PHYSICIAN Family Medicine | DX: I73.9 Peripheral vascular disease, unspecified (principal) | CPT/HCPCS: 93922; 93925 ==

== ENCOUNTER → 2024-07-12 13:42 | Outpatient (REF) | payer MEDICARE, SELFPAY | LOC: WOUND 13:42 | PROVIDERS: ATTENDING PHYSICIAN Surgery; FAMILY PHYSICIAN Family Medicine | DX: L97.412 Non-pressure chronic ulcer of right heel and midfoot with fat layer exposed (principal); I73.9 Peripheral vascular disease, unspecified; I45.4 Nonspecific intraventricular block; I71.40 Abdominal aortic aneurysm, without rupture, unspecified; Z86.73 Personal history of transient ischemic attack (TIA), and cerebral infarction without residual deficits; Z86.79 Personal history of other diseases of the circulatory system; Z87.891 Personal history of nicotine dependence | CPT/HCPCS: 99213 ==

== ENCOUNTER → 2024-07-19 08:26 | Outpatient (REF) | payer MEDICARE, SELFPAY ==
[2024-07-19 09:39] LABS: % Basophils 1.1 % (0-2); % Eosinophils 3.8 % (0-6); % Immature Granulocytes 0.2 % (0-0.5); % Lymphocytes 25.4 % (20.5-51.1); % Monocytes 7.8 % (1.7-9.3); % Neutrophils 61.7 % (42.2-75.2); Absolute Basophils 0.1 10^3/uL (0-0.2); Absolute Eosinophils 0.3 10^3/uL (0-0.7); Absolute Lymphocytes 2.1 10^3/uL (1.2-3.4); Absolute Monocytes 0.7 10^3/uL (0.1-0.6); Absolute Neutrophils 5.2 10^3/uL (1.4-6.5); Hematocrit 41.7 % (39.0-52.0); Hemoglobin 13.9 g/dL (13.0-18.0); Mean Corp Hgb Conc. 33.3 g/dL (33.0-37.0); Mean Corpuscular Hgb 28.8 pg (27.0-31.0); Mean Corpuscular Volume 86.3 fL (80.0-94.0); Mean Platelet Volume 10.9 fL (7.4-10.4); Nucleated Red Blood Cells % 0 % (-); Platelet Count 225 10^3/uL (130-400); Red Blood Cell Count 4.83 10^6/uL (4.70-6.10); Red Cell Dist. Width 14.4 % (11.5-14.5); White Blood Cell Count 8.4 10^3/uL (4.8-10.8)
[2024-07-19 11:15] LABS: Glycohemoglobin (HgbA1c) 5.7 % (4.0-5.6)
[2024-07-19 11:53] LABS: TSH Reflex To Free T4 1.21 uIU/ml (0.47-4.68)
[2024-07-19 12:00] LABS: ALT (SGPT) 23 U/L (0-50); AST (SGOT) 25 U/L (17-59); Albumin 4.3 g/dl (3.5-5.0); Alkaline Phosphatase 89 U/L (38-126); Blood Urea Nitrogen 8 mg/dl (9-20); Calcium 9.6 mg/dl (8.4-10.2); Carbon Dioxide 29 mmol/L (22-30); Chloride 108 mmol/L (98-107); Glucose 90 mg/dl (70-99); HDL Cholesterol 40 mg/dl; LDL Cholesterol, Calculated 61 mg/dl; Sodium 144 mmol/L (135-145); Total Bilirubin 0.8 mg/dl (0.2-1.3); Total Cholesterol 127 mg/dl (50-199); Total Protein 6.9 g/dl (6.3-8.2); Triglyceride 132 mg/dl (10-149); Very Low Density Lipoprotein 26 mg/dl (0-30); eGFR > 60.00
== END ==
LOC: REG 08:26
PROVIDERS: ATTENDING PHYSICIAN Family Medicine; OTHER PHYSICIAN Surgery Vascular Surgery
DX: I63.9 Cerebral infarction, unspecified (principal); R53.83 Other fatigue; Z13.29 Encounter for screening for other suspected endocrine disorder; R73.09 Other abnormal glucose; E78.2 Mixed hyperlipidemia
CPT/HCPCS: 36415; 80053; 80061; 83036; 84443; 85025

== ENCOUNTER → 2024-07-23 11:22 | Outpatient (REF) | payer MEDICARE, SELFPAY | LOC: RAD 11:22 | PROVIDERS: ATTENDING PHYSICIAN Registered Nurse; FAMILY PHYSICIAN Family Medicine | DX: I65.22 Occlusion and stenosis of left carotid artery (principal) | CPT/HCPCS: 70496; 70498; Q9967 ==

== ENCOUNTER → 2024-07-25 06:53 | Outpatient (REF) | payer MEDICARE, SELFPAY | LOC: RAD 06:53 | PROVIDERS: ATTENDING PHYSICIAN Registered Nurse; FAMILY PHYSICIAN Family Medicine | DX: I71.40 Abdominal aortic aneurysm, without rupture, unspecified (principal) | CPT/HCPCS: 76770 ==

== ENCOUNTER → 2024-07-26 11:11 | Outpatient (REF) | payer MEDICARE, SELFPAY | LOC: WOUND 11:11 | PROVIDERS: ATTENDING PHYSICIAN Surgery; FAMILY PHYSICIAN Family Medicine | DX: L97.412 Non-pressure chronic ulcer of right heel and midfoot with fat layer exposed (principal); I73.9 Peripheral vascular disease, unspecified; I45.4 Nonspecific intraventricular block; I71.40 Abdominal aortic aneurysm, without rupture, unspecified; Z86.73 Personal history of transient ischemic attack (TIA), and cerebral infarction without residual deficits; Z86.79 Personal history of other diseases of the circulatory system | CPT/HCPCS: 11042 ==

== ENCOUNTER → 2024-08-02 12:59 | Outpatient (REF) | payer MEDICARE, SELFPAY | LOC: WOUND 12:59 | PROVIDERS: ATTENDING PHYSICIAN Surgery; FAMILY PHYSICIAN Family Medicine | DX: L97.412 Non-pressure chronic ulcer of right heel and midfoot with fat layer exposed (principal); I73.9 Peripheral vascular disease, unspecified; I71.40 Abdominal aortic aneurysm, without rupture, unspecified; I45.4 Nonspecific intraventricular block; Z86.79 Personal history of other diseases of the circulatory system; Z86.73 Personal history of transient ischemic attack (TIA), and cerebral infarction without residual deficits; Z87.891 Personal history of nicotine dependence | CPT/HCPCS: 11042 ==

== ENCOUNTER → 2024-08-20 11:09 | Outpatient (REF) | payer MEDICARE, SELFPAY | LOC: WOUND 11:09 | PROVIDERS: ATTENDING PHYSICIAN Surgery; FAMILY PHYSICIAN Family Medicine | DX: L97.412 Non-pressure chronic ulcer of right heel and midfoot with fat layer exposed (principal); I73.9 Peripheral vascular disease, unspecified; Z87.891 Personal history of nicotine dependence; Z86.79 Personal history of other diseases of the circulatory system; I45.4 Nonspecific intraventricular block; Z86.73 Personal history of transient ischemic attack (TIA), and cerebral infarction without residual deficits; I71.40 Abdominal aortic aneurysm, without rupture, unspecified | CPT/HCPCS: 11042 ==

== ENCOUNTER → 2024-08-27 13:29 | Outpatient (REF) | payer MEDICARE, SELFPAY | LOC: WOUND 13:29 | PROVIDERS: ATTENDING PHYSICIAN Surgery; FAMILY PHYSICIAN Family Medicine | DX: L97.412 Non-pressure chronic ulcer of right heel and midfoot with fat layer exposed (principal); I73.9 Peripheral vascular disease, unspecified; I45.4 Nonspecific intraventricular block; I71.40 Abdominal aortic aneurysm, without rupture, unspecified; Z86.73 Personal history of transient ischemic attack (TIA), and cerebral infarction without residual deficits; Z86.59 Personal history of other mental and behavioral disorders; Z86.79 Personal history of other diseases of the circulatory system | CPT/HCPCS: 11042 ==

== ENCOUNTER → 2024-09-03 09:59 | Outpatient (REF) | payer MEDICARE, SELFPAY | LOC: WOUND 09:59 | PROVIDERS: ATTENDING PHYSICIAN Surgery; FAMILY PHYSICIAN Family Medicine | DX: L97.412 Non-pressure chronic ulcer of right heel and midfoot with fat layer exposed (principal); I73.9 Peripheral vascular disease, unspecified; I45.4 Nonspecific intraventricular block; I71.40 Abdominal aortic aneurysm, without rupture, unspecified; Z87.891 Personal history of nicotine dependence; Z86.79 Personal history of other diseases of the circulatory system | CPT/HCPCS: 11042 ==

== ENCOUNTER → 2024-09-17 10:07 | Outpatient (REF) | payer MEDICARE, SELFPAY | LOC: WOUND 10:07 | PROVIDERS: ATTENDING PHYSICIAN Surgery; FAMILY PHYSICIAN Family Medicine | DX: L97.412 Non-pressure chronic ulcer of right heel and midfoot with fat layer exposed (principal); I73.9 Peripheral vascular disease, unspecified; I45.4 Nonspecific intraventricular block; I71.40 Abdominal aortic aneurysm, without rupture, unspecified; Z86.73 Personal history of transient ischemic attack (TIA), and cerebral infarction without residual deficits; Z86.79 Personal history of other diseases of the circulatory system; Z87.891 Personal history of nicotine dependence | CPT/HCPCS: 11042 ==

== ENCOUNTER → 2024-10-01 10:03 | Outpatient (REF) | payer MEDICARE, SELFPAY | LOC: WOUND 10:03 | PROVIDERS: ATTENDING PHYSICIAN Surgery; FAMILY PHYSICIAN Family Medicine | DX: L97.412 Non-pressure chronic ulcer of right heel and midfoot with fat layer exposed (principal); I73.9 Peripheral vascular disease, unspecified; I45.4 Nonspecific intraventricular block; I71.40 Abdominal aortic aneurysm, without rupture, unspecified; Z86.79 Personal history of other diseases of the circulatory system; Z86.73 Personal history of transient ischemic attack (TIA), and cerebral infarction without residual deficits | CPT/HCPCS: 99213 ==

== ENCOUNTER → 2024-10-15 09:36 | Outpatient (REF) | payer MEDICARE, SELFPAY | LOC: WOUND 09:36 | PROVIDERS: ATTENDING PHYSICIAN Surgery; FAMILY PHYSICIAN Family Medicine | DX: L97.412 Non-pressure chronic ulcer of right heel and midfoot with fat layer exposed (principal); I73.9 Peripheral vascular disease, unspecified; I45.4 Nonspecific intraventricular block; I71.40 Abdominal aortic aneurysm, without rupture, unspecified; Z86.73 Personal history of transient ischemic attack (TIA), and cerebral infarction without residual deficits; Z86.79 Personal history of other diseases of the circulatory system; Z87.891 Personal history of nicotine dependence | CPT/HCPCS: 99212 ==

== ENCOUNTER → 2024-11-20 08:48 | Outpatient (REF) | payer MEDICARE, SELFPAY ==
[2024-11-20 09:39] LABS: Hematocrit 43.3 % (39.0-52.0); Hemoglobin 14.3 g/dL (13.0-18.0); Mean Corp Hgb Conc. 33.0 g/dL (33.0-37.0); Mean Corpuscular Volume 89.5 fL (80.0-94.0); Nucleated Red Blood Cells % 0 % (-); Platelet Count 242 10^3/uL (130-400); Red Cell Dist. Width 14.2 % (11.5-14.5)
[2024-11-20 09:58] LABS: ALT (SGPT) 24 U/L (0-50); AST (SGOT) 23 U/L (17-59); Albumin 4.3 g/dl (3.5-5.0); Alkaline Phosphatase 84 U/L (38-126); Blood Urea Nitrogen 16 mg/dl (9-20); Calcium 9.6 mg/dl (8.4-10.2); Carbon Dioxide 27 mmol/L (22-30); Chloride 107 mmol/L (98-107); Glucose 93 mg/dl (70-99); HDL Cholesterol 34 mg/dl; LDL Cholesterol, Calculated 61 mg/dl; Potassium 4.0 mmol/L (3.5-5.1); Sodium 141 mmol/L (135-145); Total Protein 6.7 g/dl (6.3-8.2); Very Low Density Lipoprotein 20 mg/dl (0-30); eGFR > 60.00
[2024-11-20 10:19] LABS: Glycohemoglobin (HgbA1c) 5.6 % (4.0-5.6)
== END ==
LOC: REG 08:48
PROVIDERS: ATTENDING PHYSICIAN Family Medicine
DX: I63.9 Cerebral infarction, unspecified (principal); R53.83 Other fatigue; E78.2 Mixed hyperlipidemia; R73.09 Other abnormal glucose
CPT/HCPCS: 36415; 80053; 80061; 83036; 85025

== ENCOUNTER → 2025-01-25 13:03 | Outpatient (REF) | payer MEDICARE, SELFPAY | LOC: PAVMRI 13:03 | PROVIDERS: ATTENDING PHYSICIAN Surgery; FAMILY PHYSICIAN Family Medicine | DX: L97.412 Non-pressure chronic ulcer of right heel and midfoot with fat layer exposed (principal) | CPT/HCPCS: 73720; A9575 ==

== ENCOUNTER → 2025-02-19 14:55 | Outpatient (REF) | payer MEDICARE, SELFPAY | LOC: HWRAD 14:55 | PROVIDERS: ATTENDING PHYSICIAN Physical Medicine & Rehabilitation; FAMILY PHYSICIAN Family Medicine | DX: R19.09 Other intra-abdominal and pelvic swelling, mass and lump (principal); R22.41 Localized swelling, mass and lump, right lower limb | CPT/HCPCS: 76882 ==